=== PATIENT | male | born 1940 | race Caucasian/White ===

== ENCOUNTER 2019-08-22 11:05 | Inpatient (IN) | payer OTHER, SELFPAY ==
[2019-08-22] VITALS (10 sets, daily range): BP systolic 156–191; BP diastolic 72–104; PULSE 77–109; RESP 17–22; TEMP 36.3–36.6; O2SAT 94–100; BMI 36.9
--- NOTE | 2019-08-22 11:14 | ECG_ITS ---
Measurements Intervals [place] Rate: 99 P: 40 MN: 152 QRS: -85 QRSD: 143 T: 30 QT: 379 QTc: 487 SINUS RHYTHM POSSIBLE LEFT ATRIAL ENLARGEMENT [-0.1mV P WAVE IN V1/V2] INDETERMINATE AXIS RIGHT BUNDLE BRANCH BLOCK [120+ ms QRS DURATION, UPRIGHT V1, 40+ ms S IN I/aVL/V4/V5/V6] LEFT ANTERIOR FASCICULAR BLOCK [QRS AXIS <= -45, QR IN I, RS IN II] Compared to ECG 02/28/2019 21:16:27 Left anterior fascicular block now present Electronically Signed On 08-22-2019 20:54:55 JEWEL INSPECTOR by Alisia Ordonez M.D. [id number]
--- NOTE | 2019-08-22 11:19 | ED_ITS ---
Entered by Maddy Lofton, acting as scribe for Luz Redmond MD HPI - SOB/Dyspnea General: Chief Complaint: Shortness of Breath/Dyspnea Stated Complaint: Shortness of breath Time Seen by Provider: 08/22/19 11:19 Source: patient Mode of arrival: ambulatory Limitations: no limitations History of Present Illness: HPI Narrative: 79 yo Male presents to ED with comp laint of shortness of breath. Pt states the is on oxygen and he still can't breathe. Pt's caregiver states that the patient has been bad for a few days but gotten worse today. Pt's states that the patient is on breathing treatments but he doesn't complete them, he just uses it long enough to get a little relief. Pt states that he has also had increased weakness and leg swelling. Pt's blood sugar is low and patient states that he is feeling a little shaky. MD elicited complaint: shortness of breath and cough Pertinent past history: COPD, congestive heart failure and diabetes Onset (ago): day(s) Timing: progressively worsening Severity: severe Exacerbating factors: coughing Relieving factors: nothing Known history of: COPD, congestive heart failure and diabetes Associated symptoms: Reports cough, orthopnea and other (weakness); Deny abdominal pain, chest pain or fever(s) Treatment prior to arrival: oxygen and bronchodilator Related Data: Home oxygen amount: 3 liters Review of Systems General: Reports: 10 or more systems reviewed and unremarkable except in HPI and below Const: Denies: fever Card: Reports: edema, swelling of feet/ankles, shortness of breath on exertion and shortness of breath when lying down; Denies: chest pain Resp: Reports: shortness of breath and non-productive cough GI: Denies: abdominal pain Musc: Reports: extremity swelling PFSH ED PFSH: Statuses (acute, chronic, etc) shown below reflect problem list status as previously entered and may not be historically accurate Medical History (Updated 08/22/19 @ 15:36 by Saroj Frances MD) Anemia BPH (benign prostatic hyperplasia) Central retinal vein occlusion Chronic kidney disease, stage III (moderate) Congestive heart failure with left ventricular systolic dysfunction Constipation COPD (chronic obstructive pulmonary disease) Coronary artery disease DJD (degenerative joint disease) GERD (gastroesophageal reflux disease) Hyperlipidemia Moderate aortic valve stenosis Pulmonary hypertension Type 2 diabetes mellitus Surgical History (Updated 08/22/19 @ 15:36 by Saroj Frances MD) History of appendectomy History of back surgery History of coronary artery bypass graft History of hernia repair History of neck surgery History of transurethral resection of prostate Family History (Updated 08/22/19 @ 15:38 by Saroj Frances MD) Other Stroke Social History (Updated 08/22/19 @ 15:38 by Saroj Frances MD) Smoking and tobacco status: former smoker Alcohol intake: never Substance/Drug Use: never Physical Exam Const: COMMON NORMALS: oriented x3 and alert; apparent distress GENERAL APPEARANCE: in distress (mild) HENMT: COMMON NORMALS: normocephalic, head/scalp atraumatic, hearing grossly normal bilaterally, external ears normal, EAC's normal, TM's normal bilaterally, external nose normal, nasal mucous membranes and turbinates normal, moist oral mucous membranes, oropharynx normal, dentition normal and gingiva normal HEAD & SCALP: normocephalic and atraumatic NOSE: external nose normal and nasal mucous membranes and turbinates normal EXTERNAL EAR: Yes external ears normal EXTERNAL AUDITORY CANAL: EAC's normal TYMPANIC MEMBRANE: TM's normal bilaterally Eye: COMMON NORMALS: PERRL, EOMs intact bilaterally, conjunctivae normal, no scleral icterus and normal visual sen by confrontation CONJUNCTIVA: Yes conjunctivae normal PUPIL: Yes PERRL DIRECT OPHTHALMOSCOPY: No photophobia Neck/C-Spine: COMMON NORMALS: full ROM, no lymphadenopathy, supple, no meningeal signs, no JVD, thyroid normal and no carotid bruits THYROID: thyroid normal Chest: COMMONS NORMALS: inspection of chest normal and palpation of chest normal Resp: COMMON NORMALS: normal respiratory effort, no retractions and no use of accessory muscles; negative for clear to auscultation bilaterally AUSCULTATION: not clear to auscultation bilaterally and rales bilateral at the base Cardio: COMMON NORMALS: no JVD, regular rate, regular rhythm, S1 normal heart sound, S2 normal heart sound, no gallops, no clicks, no murmurs, no rub and peripheral pulses 2+ throughout RATE: regular rate RHYTHM: regular rhythm HEART SOUNDS: S1 normal and S2 normal PERIPHERAL PULSES: pulses 2+ throughout GI: COMMON NORMALS: non-tender and no masses; negative for normal to inspection, nondistended, normoactive bowel sounds INSPECTION: Yes abdominal distension and Yes central obesity : COMMON NORMALS: Yes no CVA tenderness BLADDER/KIDNEY EXAM: Yes no CVA tenderness Back/Pelvis: COMMON NORMALS: no CVA tenderness Extremity: COMMON NORMALS: full ROM, no joint enlargement and no calf tenderness; negative for no clubbing, cyanosis or edema and negative for no pedal edema GENERAL: Yes normal exam except as noted and Yes edema (2+ bilateral) Neuro: COMMON NORMALS: oriented x3 SENSORIUM/ORIENTATION: Yes alert MENINGEAL SIGNS: Yes no meningeal signs Skin: COMMON NORMALS: no rashes or lesions noted, no wounds, skin turgor normal and no jaundice GENERAL SKIN EXAM: no rashes or lesions noted and turgor normal Course ED course: Patient feeling better after lasix, nitropaste and resting. Troponin elevated - lovenox and aspirin given and on repeat questioning he reports that he does get chest pain when he is very short of breath. He denied prior heart attack. Plan for admit. Consultations: Consultation #1: Discussed with Dr. Frances - accepted for admit Time: 14:07 Vital Signs: Vital signs: Vital Signs Temperature 97.7 F 08/22/19 15:30 Pulse Rate 100 08/22/19 15:30 Respiratory Rate 22 H 08/22/19 15:30 Blood Pressure 173/77 08/22/19 15:30 Pulse Oximetry 98 08/22/19 15:30 MDM - SOB/Dyspnea MDM Narrative: Medical decision making narrative: Patient with history of CHF and COPD. He has had increasing shortness of breath and leg swelling. His says that he has not missed any doses of medication as far as she is aware. Exam suggests CHF exacerbation. he denies chest pain but his troponin is elevated as is his BNP. He also has chronic renal failure and his creatinine is slightly above baseline. Repeat troponin was unchanged. Lab Data: Labs: Lab Results 08/22/19 08/22/19 08/22/19 Range/Units 11:22 11:40 11:40 WBC 14.7 H (4.0-10.0) 10^3/ uL RBC 2.70 L (4.1-5.3) 10^6/u L Hgb 8.2 L (11.7-16.6) g/dL Hct 28.1 L (42.0-52.0) % MCV 104.1 H (80-94) fL MCH 30.4 (28.0-34.0) pg MCHC 29.2 L (30.0-36.0) g/dL RDW 15.3 H (12.1-15.1) % Plt Count 347 (130-400) 10^3/c mm MPV 9.8 (7.4-10.4) fL Neut % (Auto) 80.1 % Lymph % (Auto) 7.8 % [place] % (Auto) 7.6 % Eos % (Auto) 2.8 % Baso % (Auto) 0.6 % Neut # (Auto) 11.8 H (1.8-7.7) 10^3/u L Lymph # (Auto) 1.2 (0.8-4.8) 10^3/u L [place] # (Auto) 1.1 H (0.2-0.9) 10^3/u L Eos # (Auto) 0.4 (0.0-0.8) 10^3/u L Baso # (Auto) 0.1 (0.0-0.1) 10^3/u L Nucleated RBC % (a uto) 0 % Nucleated RBCs # 0.0 /100WBC Sodium 142 (136-145) mmol/L Potassium 4.6 (3.5-5.1) mmol/L Chloride 105 (98-107) mmol/L Carbon Dioxide 23 (22-29) mmol/L Anion Gap 18.6 (5-19) BUN 49 H (8-23) mg/dL Creatinine 2.2 H (0.7-1.2) mg/dL Glucose 49 L (65-115) mg/dL POC Glucose 59 (70-110) mg/dL Calcium 9.1 (8.5-10.5) mg/dL Total Bilirubin 0.4 (0.15-1.2) mg/dL AST 18 (0-40) U/L ALT 23 (0-41) U/L Alkaline Phosphata se 121 (40-130) IU/L Troponin T Baselin e (0-15) ng/mL Troponin T 120 Min [place] (0-15) ng/mL Delta Troponin T (0-10) ABS# NT-Pro-B Natriuret Pep 7937 H (0-450) pg/mL Total Protein 7.2 (6.6-8.7) g/dL Albumin 3.9 (3.5-5.2) g/dL Globulin 3.3 (1.3-4.6) g/dL 08/22/19 08/22/19 08/22/19 Range/Units 11:40 13:04 13:55 WBC (4.0-10.0) 10^3/ uL RBC (4.1-5.3) 10^6/u L Hgb (11.7-16.6) g/dL Hct (42.0-52.0) % MCV (80-94) fL MCH (28.0-34.0) pg MCHC (30.0-36.0) g/dL RDW (12.1-15.1) % Plt Count (130-400) 10^3/c mm MPV (7.4-10.4) fL Neut % (Auto) % Lymph % (Auto) % [place] % (Auto) % Eos % (Auto) % Baso % (Auto) % Neut # (Auto) (1.8-7.7) 10^3/u L Lymph # (Auto) (0.8-4.8) 10^3/u L [place] # (Auto) (0.2-0.9) 10^3/u L Eos # (Auto) (0.0-0.8) 10^3/u L Baso # (Auto) (0.0-0.1) 10^3/u L Nucleated RBC % (a uto) % Nucleated RBCs # /100WBC Sodium (136-145) mmol/L Potassium (3.5-5.1) mmol/L Chloride (98-107) mmol/L Carbon Dioxide (22-29) mmol/L Anion Gap (5-19) BUN (8-23) mg/dL Creatinine (0.7-1.2) mg/dL Glucose (65-115) mg/dL POC Glucose 95 (70-110) mg/dL Calcium (8.5-10.5) mg/dL Total Bilirubin (0.15-1.2) mg/dL AST (0-40) U/L ALT (0-41) U/L Alkaline Phosphata se (40-130) IU/L Troponin T Baselin e 153 H* (0-15) ng/mL Troponin T 120 Min [place] 152.10 H (0-15) ng/mL Delta Troponin T -0.90 L (0-10) ABS# NT-Pro-B Natriuret Pep (0-450) pg/mL Total Protein (6.6-8.7) g/dL Albumin (3.5-5.2) g/dL Globulin (1.3-4.6) g/dL Imaging Data^: CXR: Radiologist's impression: [address] [address] XRay Report Signed Patient: Bakari Crabtree #: [id number] : 8Acct#:[id number] Age/Sex: 79 / MADM Date: 08/22/19 [facility]: Attending Dr: Ordering Provider/Ordering MD: Luz Redmond MD Date of Service: 08/22/19 Procedure(s): XR chest 1V portable [id number] Accession Number(s): [id number] Report Number: [id number] PROCEDURE INFORMATION: Exam: XR Chest, 1 View Exam date and time: 08/22/2019 11:53 AM Age: 79 years old Clinical indication: Dyspnea; Prior surgery; Surgery date: 6+ months; Surgery type: Open heart; Patient HX: Chest pain, shortness of breath, hurts when coughing TECHNIQUE: Imaging protocol: XR of the chest Views: 1 view. COMPARISON: CR Chest 1 [place] [id number] 02/28/2019 10:45 AM FINDINGS: Lungs: Rather coarse interstitial pattern diffusely. Chronic in appearance. Likely fibrotic. Pleural space: Unremarkable. No pleural effusion. No pneumothorax. Heart/Mediastinum: cardiac silhouette is enlarged. Prior sternotomy. Bones/joints: See Heart/mediastinum Finding. XR/XR chest 1V portable [id number] IMPRESSION: Rather coarse interstitial pattern diffusely. Chronic in appearance. Likely fibrotic. 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 EKG 2: EKG Interpretation Date: 08/22/19 EKG interpretation time: 13:42 Prior EKG tracings: available for review Interpretation: rate 92, RBBB and LAFB Discharge Plan Discharge Patient Disposition: Admitted As Inpatient Admit Provider: Saroj Frances Clinical Impression: Chronic renal disease, Elevated troponin Congestive heart failure Qualifiers: Heart failure chronicity: acute on chronic Condition: Stable Referrals: Anton Pak DO [Primary Care Provider] - Discharge Date/Time: 08/22/19 15:03 Coding Level of Care Code ED Dining Service Supervisor for Chg Fwd Exam Problem Focused The documentation recorded by the Kirsty salas Carmen, accurately reflects the service I personally performed and the decisions made by Ruy car Kathryn L, MD Aug 22, 2019 11:05
[2019-08-22 11:25] LABS: Glucose Point of Care 59 mg/dL (70-110)
--- NOTE | 2019-08-22 11:32 | XRR_ITS ---
PROCEDURE INFORMATION: Exam: XR Chest, 1 View Exam date and time: 08/22/2019 11:53 AM Age: 79 years old Clinical indication: Dyspnea; Prior surgery; Surgery date: 6+ months; Surgery type: Open heart; Patient HX: Chest pain, shortness of breath, hurts when coughing TECHNIQUE: Imaging protocol: XR of the chest Views: 1 view. COMPARISON: CR Chest 1 [place] [id number] 02/28/2019 10:45 AM FINDINGS: Lungs: Rather coarse interstitial pattern diffusely. Chronic in appearance. Likely fibrotic. Pleural space: Unremarkable. No pleural effusion. No pneumothorax. Heart/Mediastinum: cardiac silhouette is enlarged. Prior sternotomy. Bones/joints: See Heart/mediastinum Finding. XR/XR chest 1V portable [id number] IMPRESSION: Rather coarse interstitial pattern diffusely. Chronic in appearance. Likely fibrotic.
--- NOTE | 2019-08-22 11:40 | PC.NURSE ---
reports the patient has had a cough for about 3 weeks. states the patient also has been short of breath for about a week. Patient reports chest pain only when he coughs. states the patient uses home O2 at 3 L and increases it as needed for SOB. reports that he does have breathing treatments as well but he only uses for a couple seconds and then stops it. Patient denies any other symptoms.
--- NOTE | 2019-08-22 11:42 | PC.NURSE ---
2 juices given to patient due to the patients blood glucose.
[2019-08-22 11:58] LABS: Basophils # 0.1 10^3/uL (0.0-0.1); Basophils % 0.6 %; Eosinophils # 0.4 10^3/uL (0.0-0.8); Eosinophils % 2.8 %; Hematocrit 28.1 % (42.0-52.0); Hemoglobin 8.2 g/dL (11.7-16.6); Lymphocytes # 1.2 10^3/uL (0.8-4.8); Lymphocytes % 7.8 %; Mean Corpuscular HGB Conc 29.2 g/dL (30.0-36.0); Mean Corpuscular Hemoglobin 30.4 pg (28.0-34.0); Mean Corpuscular Volume 104.1 fL (80-94); Mean Platelet Volume 9.8 fL (7.4-10.4); Monocytes # 1.1 10^3/uL (0.2-0.9); Monocytes % 7.6 %; Neutrophils # 11.8 10^3/uL (1.8-7.7); Neutrophils % 80.1 %; Nucleated Red Blood Cells % 0 %; Platelet Count 347 10^3/cmm (130-400); Red Cell Distribution Width 15.3 % (12.1-15.1); White Blood Count 14.7 10^3/uL (4.0-10.0)
[2019-08-22 12:24] LABS: Troponin(5th) Baseline 153 ng/mL (0-15)
[2019-08-22 12:28] LABS: Alanine Aminotransferase 23 U/L (0-41); Albumin Level 3.9 g/dL (3.5-5.2); Alkaline Phosphatase 121 IU/L (40-130); Anion Gap 18.6 (5-19); Aspartate Amino Transferase 18 U/L (0-40); Blood Urea Nitrogen 49 mg/dL (8-23); Calcium 9.1 mg/dL (8.5-10.5); Carbon Dioxide 23 mmol/L (22-29); Chloride 105 mmol/L (98-107); Globulin 3.3 g/dL (1.3-4.6); Glucose 49 mg/dL (65-115); NT Pro B Type Natriuretic Pept 7937 pg/mL (0-450); Potassium 4.6 mmol/L (3.5-5.1); Sodium 142 mmol/L (136-145); Total Bilirubin 0.4 mg/dL (0.15-1.2); Total Protein 7.2 g/dL (6.6-8.7)
[2019-08-22] MEDS: FUROsemide 10 mg/mL SDV 4mL 40 MG IVP (12:47)
[2019-08-22 13:06] LABS: Glucose Point of Care 95 mg/dL (70-110)
--- NOTE | 2019-08-22 13:07 | PC.PHAR ---
ENTERED MEDICATIONS FROM PTS 'S LIST. FAXED [facility] AT 12:25 PM. STILL WAITING FOR FAX.
--- NOTE | 2019-08-22 13:14 | ECG_ITS ---
Measurements Intervals [place] Rate: 92 P: 40 MO: 151 QRS: 23 QRSD: 143 T: 18 QT: 387 QTc: 481 SINUS RHYTHM WITH OCCASIONAL ECTOPIC PREMATURE COMPLEXES POSSIBLE LEFT ATRIAL ENLARGEMENT [-0.1mV P WAVE IN V1/V2] INDETERMINATE AXIS RIGHT BUNDLE BRANCH BLOCK [120+ ms QRS DURATION, UPRIGHT V1, 40+ ms S IN I/ I/aVL/V4/V5/V6] Compared to ECG 02/28/2019 21:16:27 No significant changes Electronically Signed On 08-22-2019 21:00:21 ENGINE MAINTENANCE MECHANIC by Alisia Ordonez M.D. [id number]
[2019-08-22] MEDS: nitroglycerin 1 gm/inch oint Pkt 1 INCH TOPICAL (14:09)
[2019-08-22] MEDS: aspirin 81 mg Chew Tablet 324 MG PO (14:09)
[2019-08-22] MEDS: enoxaparin 30 mg/0.3 mL Syringe SUBCUT (14:10)
--- NOTE | 2019-08-22 15:30 | USCV_ITS ---
Bakari Crabtree Age: 79 Gender: M : 1940 Exam Date: 08/22/2019 16:23 Ordering Phys: Saroj Frances MD Technologist: Onelia Pacheco Exam Location: [facility] [place] Indication: CHF BP: / HR: 95 Rhythm: Sinus Technical Quality: Technically difficult study MEASUREMENTS (Male / Female) Normal Values 2D ECHO LV Diastolic Diameter PLAX 5.0 cm 4.2 - 5.9 / 3.9 - 5.3 cm LV Systolic Diameter PLAX 3.7 cm IVS Diastolic Thickness 2.1 cm 0.6 - 1.0 / 0.6 - 0.9 cm IVS Systolic Thickness 2.1 cm LVPW Diastolic Thickness 1.7 cm 0.6 - 1.0 / 0.6 - 0.9 cm LVPW Systolic Thickness 2.4 cm LVOT Diameter 2.1 cm LV Ejection Fraction 2D Teich 50.5 % LA Diameter 4.7 cm LA Width 3.6 cm LA Height 4.7 cm RA Width 4.9 cm RA Height 5.1 cm Aorta at Sinotubular Diameter 3.5 cm M-MODE LV Diastolic Diameter MM 6.9 cm 4.2 - 5.9 / 3.9 - 5.3 cm LV Systolic Diameter MM 4.7 cm LV Ejection Fraction MM Teich 59.6 % IVS Diastolic Thickness MM 1.7 cm 0.6 - 1.0 / 0.6 - 0.9 cm IVS Systolic Thickness MM 2.3 cm LVPW Diastolic Thickness MM 1.4 cm 0.6 - 1.0 / 0.6 - 0.9 cm LVPW Systolic Thickness MM 1.9 cm RV Diastolic Diameter MM 2.1 cm Aortic Annulus Diameter 3.0 cm LA Ao Ratio MM 1.6 MV E Point Septal Separation 1.4 cm DOPPLER AV Peak Velocity 261.0 cm/s LVOT Peak Velocity 66.0 cm/s AV Area Cont Eq vti 1.0 cm squared AV Area Cont Eq pk 0.9 cm squared MV Area PHT 5.6 cm squared Mitral E to A Ratio 1.2 MV E' Velocity 6.0 cm/s Mitral E to MV E' Ratio 28.1 Mitral E to LV E' Lateral Ratio 26.8 Mitral E to LV E' Septal Ratio 29.6 TR Peak Velocity 205.9 cm/s TR Peak Gradient 17.0 mmHg TR Mean Velocity 156.4 cm/s TR Mean Gradient 10.6 mmHg TR Velocity Time Integral 61.2 cm TV Peak E Velocity 75.0 cm/s Right Atrial Pressure 15.0 mmHg Pulmonary Artery Systolic Pressu 32.0 mmHg PV Peak Velocity 47.0 cm/s RV Acceleration Time 0.1 s RV Ejection Time 0.3 s RV AcT/ET 0.5 FINDINGS Left Ventricle Mildly increased left ventricular cavity size. Normal left ventricular systolic function. Left ventricular ejection fraction is estimated at 55 %. Grade II/IV diastolic dysfunction, moderately elevated filling pressures. Right Ventricle The right ventricle is normal in size and function. Right Atrium The right atrium is normal in size. Left Atrium Moderately increased left atrial size. Mitral Valve Severely thickened mitral valve. Severe mitral annular calcification. No mitral valve stenosis. Trace mitral valve regurgitation. Aortic Valve Severe aortic valve calcification. Moderate to severe aortic valve stenosis, mean gradient 16.9 mmHg, ANTHONY 0.99 cm squared. Tricuspid Valve Structurally normal tricuspid valve without significant stenosis or regurgitation. Pulmonary artery systolic pressure is normal. Pulmonic Valve Mild pulmonary valve regurgitation. Pericardium Normal pericardium without effusion. Aorta Normal ascending aorta dimension. CONCLUSIONS 1-Mildly increased left ventricular cavity size. Normal left ventricular systolic function. Left ventricular ejection fraction is estimated at 55 %. Grade II/IV diastolic dysfunction, moderately elevated filling pressures. 2-Moderately increased left atrial size. 3-Severely thickened mitral valve. Severe mitral annular calcification. No mitral valve stenosis. Trace mitral valve regurgitation. 4-Severe aortic valve calcification. Moderate to severe aortic valve stenosis, mean gradient 16.9 mmHg, ANTHONY 0.99 cm squared. 5-Mild pulmonary valve regurgitation. 6-There is no pericardial effusion. 7-When compared to the prior echocardiogram dated 07/21/2018 there is worsening of aortic stenosis from moderate 1.2 cm squared to moderate to severe 0.99 cm2 now. Daniel Smalls MD (Electronically Signed) Final Date: 22 August 2019 19:02 S
--- NOTE | 2019-08-22 15:30 | P.HP_ITS ---
Providers/Chief Complaint Admitting Physician: Saroj Frances MD Primary Care Provider: Anton Pak DO Chief Complaint: Shortness of breath History of Present Illness Bakari Crabtree is a 79 year old male who presents to the emergency department with increasing shortness of breath over the last month. In the last week it is gotten worse. He has had a cough productive of clear thick sputum. He reports no fevers. He reports he is always swollen and he does not believe his leg swelling is any different but his abdomen feels more bloated. He occasionally will have a hard stool that is occasionally black. He reports recent EGD and colonoscopy about 2 months ago which were normal. He has had anemia and has been found to be iron deficient. He denies any vomiting. He has had no chest discomfort. He reports past history of reflux but nothing severe currently. Review of Systems General: Reports: 10 or more systems reviewed and unremarkable except in HPI and below Const: Denies: fever or chills Eyes: Reports: blurry vision ENMT: Denies: throat pain Card: Reports: swelling of feet/ankles and shortness of breath on exertion; Denies: chest pain or syncope Resp: Reports: shortness of breath and productive cough GI: Denies: abdominal pain : Denies: flank pain Musc: Reports: back pain; Denies: neck pain Skin/Breast: Denies: rash Neuro: Denies: headache Psych: Denies: anxiety Endo: Denies: excessive urination Cuate/Lymph: Denies: easy bruising All/Imm: Denies: hives Medications/Allergies Home Medications Medication Instructions Recorded Confirmed Last Taken Type acetaminophen [Tylenol Extra 1,000 mg PO TID PRN 08/22/19 08/22/19 Unknown History Strength] albuterol sulfate [ProAir HFA] 2 puff INHALATION 6XD PRN 08/22/19 08/22/19 Unknown History atorvastatin [Lipitor] 20 mg PO DAILY 08/22/19 08/22/19 Unknown History budesonide-formoterol [Symbicort] 2 puff INHALATION BID 08/22/19 08/22/19 Unknown History bumetanide See Rx Instructions .ROUTE .COMPLEX 08/22/19 08/22/19 Unknown History cholecalciferol (vitamin D3) 4,000 unit PO DAILY 08/22/19 08/22/19 Unknown History [Vitamin D3] ferrous sulfate 325 mg PO DAILY 08/22/19 08/22/19 Unknown History insulin glargine [Lantus Solostar See Rx Instructions .ROUTE .COMPLEX 08/22/19 08/22/19 Unknown History U-100 Insulin] ipratropium-albuterol 3 ml INHALATION QID 08/22/19 08/22/19 Unknown History isosorbide mononitrate 120 mg PO DAILY 08/22/19 08/22/19 Unknown History metolazone 2.5 mg PO BID 08/22/19 08/22/19 Unknown History metoprolol tartrate 50 mg PO BID 08/22/19 08/22/19 Unknown History pantoprazole [Protonix] 40 mg PO DAILY 08/22/19 08/22/19 Unknown History potassium chloride 20 meq PO TID 08/22/19 08/22/19 08/21/19 History tamsulosin [Flomax] 0.4 mg PO DAILY 08/22/19 08/22/19 Unknown History Allergies Allergy/AdvReac Type Severity Reaction Status Date / Time No Known Allergies Allergy Verified 08/22/19 11:12 PFSH Acute PFSH: Statuses (acute, chronic, etc) shown below reflect problem list status as previously entered and may not be historically accurate Medical History (Updated 08/22/19 @ 15:36 by Saroj Frances MD) Anemia (Acute) BPH (benign prostatic hyperplasia) (Acute) Central retinal vein occlusion (Acute) Chronic kidney disease, stage III (moderate) (Acute) Congestive heart failure with left ventricular systolic dysfunction (Acute) Constipation (Acute) COPD (chronic obstructive pulmonary disease) (Acute) Coronary artery disease (Acute) DJD (degenerative joint disease) (Acute) GERD (gastroesophageal reflux disease) (Acute) Hyperlipidemia (Acute) Moderate aortic valve stenosis (Acute) Pulmonary hypertension (Acute) Type 2 diabetes mellitus (Acute) Surgical History (Updated 08/22/19 @ 15:36 by Saroj Frances MD) History of appendectomy (Acute) History of back surgery (Acute) History of coronary artery bypass graft (Acute) History of hernia repair (Acute) History of neck surgery (Acute) History of transurethral resection of prostate (Acute) Family History (Updated 08/22/19 @ 15:38 by Saroj Frances MD) Other Stroke Social History (Updated 08/22/19 @ 15:38 by Saroj Frances MD) Smoking and tobacco status: former smoker Alcohol intake: never Substance/Drug Use: never Vitals/I&O/Wt Last Vital Signs Temp 97.3 F L 08/22/19 11:06 Pulse 96 08/22/19 14:48 Resp 17 08/22/19 14:48 BP 191/101 08/22/19 14:48 Pulse Ox 96 08/22/19 14:48 Weight last 48 hrs Weight 113.398 kg Physical Exam Narrative: EXAM NARRATIVE: General exam is a elderly male, in mild to moderate respiratory distress HEENT: Pupils equally round Oropharynx is clear Neck is supple no lymphadenopathy or thyromegaly Cardiovascular borderline tachycardia. 2/6 systolic murmur Lungs crackles at the bases with diminished breath sounds bilaterally Abdomen is soft, positive bowel sounds was deferred Extremities 3+ edema lower extremities bilaterally. Cap refill intact. No cyanosis or clubbing Skin without rash Neuro no focal deficits Data : 08/22/19 11:40 08/22/19 11:40 Other data: EKG demonstrates right bundle branch block, sinus rhythm, normal axis Chest x-ray demonstrates fluid overload, previous bypass grafting A&P Assessment and plan (1) Congestive heart failure with left ventricular systolic dysfunction: Significant acute systolic heart failure Lasix 60 mg IV twice daily Close follow-up of electrolytes Continue beta-vanessa, as well as Imdur We will have to avoid JESUS inhibitor secondary to acute kidney injury Check echocardiogram. Last echocardiogram July 2018 demonstrating EF of 45%, 1/4 diastolic dysfunction, moderate aortic valve stenosis and moderate pulmonary hypertension Status: Acute Code(s): I50.20 - Unspecified systolic (congestive) heart failure (2) COPD (chronic obstructive pulmonary disease): Cannot rule out an element of COPD exacerbation. He is on oxygen chronically at 2 to 3 L. Doxycycline 100 mg twice daily Prednisone 40 mg daily Pulmonary toilet Steroid inhalation Status: Acute Code(s): J44.9 - Chronic obstructive pulmonary disease, unspecified (3) Anemia: Significantly anemic. Previous iron studies demonstrated iron deficiency. Close follow-up Hemoccult stool Repeat iron, B12, folate studies. Status: Acute Code(s): D64.9 - Anemia, unspecified (4) Macrocytosis: Check B12 folate and TSH Status: Acute Code(s): D75.89 - Other specified diseases of blood and blood-forming organs (5) Leukocytosis: Possibly secondary to COPD exacerbation or heart failure. Will check urinalysis as well. Follow closely, repeat laboratory tomorrow Status: Acute Code(s): D72.829 - Elevated white blood cell count, unspecified (6) Acute kidney injury: Acute on chronic kidney injury. Hopefully this will improve with diuresis Avoid JESUS inhibitors, renal toxic medication Check urinalysis Repeat BMP tomorrow Status: Acute Code(s): N17.9 - Acute kidney failure, unspecified (7) Elevated troponin: Await repeat levels. Suspect this is type II Level likely elevated from renal failure, heart failure. No obvious acute concerns on EKG, and patient without chest discomfort. Status: Acute Code(s): R79.89 - Other specified abnormal findings of blood chemistry Additional A&P Information Chronic kidney disease stage III Coronary artery disease with history of previous CABG. Consider low-dose aspirin 81 mg daily. Will check hemoglobin tomorrow prior to starting secondary to significant anemia. Note that he is already received an aspirin in the emergency department today as well as an injection of Lovenox. Consideration of continue of these will occur tomorrow. For now I will consider them contraindicated secondary to his severe anemia until I can review his laboratory tomorrow as well. Type 2 diabetes. Sliding scale insulin, Lantus at slightly lower dose than at home secondary to renal failure GERD, continue Protonix BPH, continue Flomax Multiple other medical problems as outlined in past medical history SCDs for DVT prophylaxis. Did receive 1 dose of Lovenox in the emergency department. Will evaluate laboratory, degree of anemia tomorrow prior to determining if further doses should be given. Attestations Medical Necessity Statement*: Will need greater than 2 midnight stay for evaluation and treatment of acute systolic heart failure Time Spent in Patient Care: Greater than 35 minutes Will need greater than 2 midnight stay for evaluation and treatment of acute systolic heart failure Coding Level of Care Code Acute Superintendent Recreation for Jennifer Tuttle Diagnoses Congestive heart failure with left ventricular systolic dysfunction I50.20 COPD (chronic obstructive pulmonary disease) J44.9 Anemia D64.9 Macrocytosis D75.89 Leukocytosis D72.829 Acute kidney injury N17.9 Elevated troponin R79.89
[2019-08-22 15:37] LABS: Glucose Point of Care 64 mg/dL (70-110)
[2019-08-22 16:04] LABS: Glucose Point of Care 61 mg/dL (70-110)
[2019-08-22] MEDS: ipratropium-albuterol 3 mL Neb INHALATION ×2 (16:33→21:59)
--- NOTE | 2019-08-22 17:14 | ECG_ITS ---
Measurements Intervals [place] Rate: 100 P: 37 AL: 144 QRS: 267 QRSD: 147 T: 15 QT: 386 QTc: 499 SINUS TACHYCARDIA WITH OCCASIONAL VENTRICULAR PREMATURE COMPLEXES POSSIBLE LEFT ATRIAL ENLARGEMENT [-0.1mV P WAVE IN V1/V2] INDETERMINATE AXIS RIGHT BUNDLE BRANCH BLOCK [120+ ms QRS DURATION, UPRIGHT V1, 40+ ms S IN I/aVL/V4/V5/V6] Compared to ECG 02/28/2019 21:16:27 Ventricular premature complex(es) now present Sinus rhythm no longer present Electronically Signed On 08-22-2019 21:01:12 [employer] SALES LEAD by Alisia Ordonez M.D. [email or web address]
[2019-08-22 17:18] LABS: Ferritin 215 ng/mL (30-400); Iron 35 ug/dL (59-158); Percent Saturation 13.5 % (20-50); Thyroid Stimulating Hormone 4.43 uIU/mL (0.27-4.20); Total Iron Binding Capacity 258 mcg/dl; Unsaturated Iron Binding 223 ug/dL (112-347); Vitamin B12 418 pg/mL (232-1245)
[2019-08-22] MEDS: metoprolol tartrate 50 mg Tablet PO (17:18)
[2019-08-22 17:19] LABS: Folate Level 7.9 ng/mL (4.5-32.2)
[2019-08-22] MEDS: doxycycline 100 mg Tablet PO (17:19)
[2019-08-22] MEDS: docusate sodium 100 mg Capsule PO (17:19)
[2019-08-22 18:14] LABS: Troponin 5 6HR Delta 1.4 ng/L (0-12)
[2019-08-22 18:39] LABS: Troponin 5 6HR 154.4 ng/L (0-15)
[2019-08-22 20:22] LABS: Bilirubin Urine Neg (NEGATIVE); Blood Urine 2+ (Negative); Glucose Urine UA Norm (Normal); Ketones Urine Negative (Negative); Leukocyte Esterase Urine Negative (Negative); Nitrate Urine Negative (Negative); Protein Urine 3+ (Negative); Specific Gravity, Urine 1.005 (1.005-1.030); Urine Appearance Clear (CLEAR); Urine Color Yellow (Yellow); Urobilinogen Urine Norm (Negative); pH Urine 5 (5-7)
[2019-08-22 21:23] LABS: Glucose Point of Care 103 mg/dL (70-110)
--- NOTE | 2019-08-22 21:40 | PM.EVENT ---
Event Note Event Note: Called about evening Lantus dose of 60 units. Current blood sugar is 103. Earlier today blood sugar was 49. Admitted today so do not have any trends to evaluate. Holding the evening dose of Lantus currently. He does have steroids ordered so expect will increase blood sugars, but will need to monitor and decide about further dosing.
[2019-08-22] MEDS: FUROsemide 10 mg/mL SDV 10mL 60 MG IV (21:57)
[2019-08-22] MEDS: budesonide 0.5 mg/2 mL Neb INHALATION (21:59)
[2019-08-23] VITALS (11 sets, daily range): BP systolic 145–172; BP diastolic 75–98; PULSE 83–95; RESP 17–22; TEMP 36.1–37.2; O2SAT 93–98
[2019-08-23 03:14] LABS: Glucose Point of Care 54 mg/dL (70-110)
[2019-08-23] MEDS: ipratropium-albuterol 3 mL Neb INHALATION ×3 (06:02→22:00)
[2019-08-23 06:35] LABS: Glucose Point of Care 62 mg/dL (70-110)
[2019-08-23 06:37] LABS: Basophils # 0.1 10^3/uL (0.0-0.1); Basophils % 0.5 %; Eosinophils # 0.2 10^3/uL (0.0-0.8); Hematocrit 25.9 % (42.0-52.0); Hemoglobin 7.8 g/dL (11.7-16.6); Lymphocytes # 1.1 10^3/uL (0.8-4.8); Lymphocytes % 6.9 %; Mean Corpuscular HGB Conc 30.1 g/dL (30.0-36.0); Mean Corpuscular Hemoglobin 29.2 pg (28.0-34.0); Mean Platelet Volume 9.2 fL (7.4-10.4); Monocytes # 1.1 10^3/uL (0.2-0.9); Monocytes % 7.4 %; Neutrophils # 12.8 10^3/uL (1.8-7.7); Neutrophils % 83.4 %; Nucleated Red Blood Cells % 0 %; Platelet Count 302 10^3/cmm (130-400); Red Blood Count 2.67 10^6/uL (4.1-5.3); Red Cell Distribution Width 15.3 % (12.1-15.1); White Blood Count 15.3 10^3/uL (4.0-10.0)
[2019-08-23 06:50] LABS: Anion Gap 14.5 (5-19); Blood Urea Nitrogen 47 mg/dL (8-23); Calcium 9.2 mg/dL (8.5-10.5); Carbon Dioxide 27 mmol/L (22-29); Chloride 103 mmol/L (98-107); Glucose 55 mg/dL (65-115); Osmolality Calculated 286 mOsm/kg (285-295); Potassium 4.5 mmol/L (3.5-5.1); Sodium 140 mmol/L (136-145)
[2019-08-23] MEDS: pantoprazole DR 40 mg Tablet PO (08:49)
[2019-08-23] MEDS: metoprolol tartrate 50 mg Tablet PO ×2 (08:49→17:30)
[2019-08-23] MEDS: atorvastatin 40 mg Tablet 20 MG PO (08:50)
[2019-08-23] MEDS: docusate sodium 100 mg Capsule PO ×2 (08:50→17:29)
[2019-08-23] MEDS: tamsulosin 0.4 mg Capsule PO (08:50)
[2019-08-23] MEDS: predniSONE 20 mg Tablet 40 MG PO (08:51)
[2019-08-23] MEDS: doxycycline 100 mg Tablet PO ×2 (08:51→17:29)
[2019-08-23] MEDS: isosorbide mononitrate ER 60 mg Tablet 120 MG PO (08:51)
[2019-08-23 08:58] LABS: Glucose Point of Care 95 mg/dL (70-110)
[2019-08-23] MEDS: FUROsemide 10 mg/mL SDV 10mL 60 MG IV ×2 (08:58→22:04)
[2019-08-23] MEDS: budesonide 0.5 mg/2 mL Neb INHALATION ×2 (09:12→22:00)
[2019-08-23 10:46] LABS: Glucose Point of Care 172 mg/dL (70-110)
--- NOTE | 2019-08-23 12:48 | PC.CHAP ---
Pastoral Care Encounter/Spiritual Assessment Type of Contact [] Declined forest ranger technician visit [] Patient/Family/Request visit [] Outpatient visit [] Follow-up visit [] Physician referral [] Code/Alert [x] Routine visit [] Staff referral [] Actively dying [] Patient sleeping [] Family support [] [] Out of room [] Palliative care [] [] Receiving care in room [] Pre-surgical visit [] Trauma [] Long length of stay [] ICU visit [] Other: Relational/Emotional Strength [x] Patient feels connected with others/family/visitors/staff [] Distress [] Loneliness/isolation [] Abandonment Spirituality of Patient [x Person of [place] [] Attends Tenriism of their [place] [] Believes in Prayer [] Reads Bible or Quaker materials [x] There are Spiritual issues to be addressed Press Maintainer Interventions [x] Prayer [x] Active listening [x] Non-anxious presence [x] Spiritual/emotional support [] Crisis/trauma care [x] Spiritual counseling [] Bereavement support [] Provided bereavement packet [] Provided Bible/devotional materials [] Provided toy/stuffed animal, coloring book to patient or family member [] Provided Communion [] Anointing/[place] [] Salvation [] Completed spiritual assessment [] Other: Impact on Illness or Injury [] Angry [] Fearful [] Anxious [] Often cries [] Exhaustion [] Unable to work [] Unable to attend judaism [] Unable to walk/stand [] Unable to read [] Unable to drive [] Unable to eat/drink [] Unable to sleep [] Unable to be with family [] Patient intubated [x] Other: n/a Summary Time spent with patient 5 minutes
--- NOTE | 2019-08-23 13:07 | P.PN_ITS ---
Subjective Subjective: Interval history: Bakari reports he feels a little bit better. A little less swollen. Medications: Reviewed: Yes Vitals/I&O/Wt Last Vital Signs Temp 97.7 F 08/23/19 11:23 Pulse 86 08/23/19 11:23 Resp 18 08/23/19 11:23 BP 150/75 08/23/19 11:23 Pulse Ox 98 08/23/19 11:23 08/22/19 08/23/19 08/23/19 22:59 06:59 14:59 Intake Total 600 / 600 720 / 720 Output Total 420 / 420 325 / 745 700 / 700 Balance 180 / 180 -325 / -145 Weight last 48 hrs Weight 113.398 kg Physical Exam Narrative: EXAM NARRATIVE: General exam is no apparent distress Neck is supple no lymphadenopathy or thyromegaly Cardiovascular borderline tachycardia. 2/6 systolic murmur Lungs crackles at the bases with diminished breath sounds bilaterally Abdomen is soft, positive bowel sounds Extremities 2+ edema bilaterally Data : 08/23/19 06:30 08/23/19 06:30 A&P Assessment and plan (1) Congestive heart failure with left ventricular systolic dysfunction: Continue diuresis with Lasix 60 mg IV twice daily Continue beta-vanessa, as well as Imdur We will have to avoid JESUS inhibitor secondary to acute kidney injury Echocardiogram demonstrates possible worsening of his aortic valve stenosis, it weaned severe currently. Ejection fraction appears improved since last echocardiogram July 2018 demonstrating EF of 45%, 1/4 diastolic dysfunction, moderate aortic valve stenosis and moderate pulmonary hypertension With repeat echocardiogram as above this qualifies more is acute diastolic heart failure, with valvular component. Status: Acute Code(s): I50.20 - Unspecified systolic (congestive) heart failure (2) COPD (chronic obstructive pulmonary disease): Cannot rule out an element of COPD exacerbation. He is on oxygen chronically at 2 to 3 L. Doxycycline 100 mg twice daily Prednisone 40 mg daily Pulmonary toilet Steroid inhalation Status: Acute Code(s): J44.9 - Chronic obstructive pulmonary disease, unspecified (3) Anemia: Significantly anemic. Previous iron studies demonstrated iron deficiency. Repeat studies due as well. B12 level and folate are normal Awaiting stool Hemoccult Iron transfusion today Status: Acute Code(s): D64.9 - Anemia, unspecified (4) Macrocytosis: B12 and folate levels were normal Status: Acute Code(s): D75.89 - Other specified diseases of blood and blood-forming organs (5) Leukocytosis: Unchanged. Some of this may reflect prednisone which was started as well. Status: Acute Code(s): D72.829 - Elevated white blood cell count, unspecified (6) Acute kidney injury: Acute on chronic kidney injury. Renal function essentially unchanged Urinalysis no infection, but significant proteinuria. Could not rule out nephrotic syndrome Avoid JESUS inhibitors, renal toxic medication Continue close follow-up of electrolytes Status: Acute Code(s): N17.9 - Acute kidney failure, unspecified (7) Elevated troponin: Secondary to aortic stenosis, heart failure Status: Acute Code(s): R79.89 - Other specified abnormal findings of blood chemistry Additional A&P Information Chronic kidney disease stage III Coronary artery disease with history of previous CABG. Consider low-dose aspirin 81 mg daily but will await stool Hemoccult secondary to worsening anemia, iron deficiency. He did receive Lovenox and an aspirin in the emergency department Type 2 diabetes. Although home long-acting insulin was reduced he still had hypoglycemia in the night. Discontinue Lantus, sliding scale only GERD, continue Protonix BPH, continue Flomax Multiple other medical problems as outlined in past medical history SCDs for DVT prophylaxis. No further anticoagulation secondary to severe anemia. Attestations Medical Necessity Statement*: Needs continued hospital stay for further diuresis secondary to acute diastolic heart failure. Coding Level of Care Code Acute Wood Dowel Machine Operator for Jennifer Fwd Diagnoses Congestive heart failure with left ventricular systolic dysfunction I50.20 COPD (chronic obstructive pulmonary disease) J44.9 Anemia D64.9 Macrocytosis D75.89 Leukocytosis D72.829 Acute kidney injury N17.9 Elevated troponin R79.89
[2019-08-23 16:07] LABS: Glucose Point of Care 315 mg/dL (70-110)
[2019-08-23 21:48] LABS: Glucose Point of Care 254 mg/dL (70-110)
--- NOTE | 2019-08-23 21:48 | P.CONIM_ITS ---
Providers/Reason For Consult Consulting Physican/Specialty*: Cardiology Reason for Consult*: Worsening of heart failure Moderate to severe aortic stenosis Attending Physician: Saroj Frances MD Primary Care Provider: Anton Pak DO History of Present Illness History of Present Illness Bakari Crabtree is a 79 year old male past medical history significant for moderate aortic stenosis, diastolic heart failure, chronic kidney disease stage III, history of CABG multivessel coronary artery disease, anemia was admitted with worsening of shortness of breath PND orthopnea. He was started on IV Lasix improved steadily however has not had approached his baseline. Echocardiogram was obtained during this admission which showed worsening of aortic valve from mild to moderate category. He was also found to be anemic with hemoglobin below 8. Patient admits to black tarry stool. He denies chest pain at rest but admits to chest pain when he becomes very short of breath upon ambulation. His baseline creatinine is around 2.0 Review of Systems General: Reports: 10 or more systems reviewed and unremarkable except in HPI and below Const: Denies: fever or chills Eyes: Reports: blurry vision ENMT: Denies: throat pain Card: Reports: edema, swelling of feet/ankles, shortness of breath on exertion and shortness of breath when lying down; Denies: chest pain or syncope Resp: Reports: shortness of breath, productive cough and non-productive cough GI: Denies: abdominal pain : Denies: flank pain Musc: Reports: back pain and extremity swelling; Denies: neck pain Skin/Breast: Denies: rash Neuro: Denies: headache Psych: Denies: anxiety Endo: Denies: excessive urination Cuate/Lymph: Denies: easy bruising All/Imm: Denies: hives Meds/Allergies Home Medications and Allergies Home Medications Medication Instructions Recorded Confirmed Type acetaminophen [Tylenol Extra 1,000 mg PO TID PRN 08/22/19 08/22/19 History Strength] albuterol sulfate [ProAir HFA] 2 puff INHALATION 6XD PRN 08/22/19 08/22/19 History atorvastatin [Lipitor] 20 mg PO DAILY 08/22/19 08/22/19 History budesonide-formoterol [Symbicort] 2 puff INHALATION BID 08/22/19 08/22/19 History bumetanide See Rx Instructions .ROUTE .COMPLEX 08/22/19 08/22/19 History cholecalciferol (vitamin D3) 4,000 unit PO DAILY 08/22/19 08/22/19 History [Vitamin D3] ferrous sulfate 325 mg PO DAILY 08/22/19 08/22/19 History insulin glargine [Lantus Solostar See Rx Instructions .ROUTE .COMPLEX 08/22/19 08/22/19 History U-100 Insulin] ipratropium-albuterol 3 ml INHALATION QID 08/22/19 08/22/19 History isosorbide mononitrate 120 mg PO DAILY 08/22/19 08/22/19 History metolazone 2.5 mg PO BID 08/22/19 08/22/19 History metoprolol tartrate 50 mg PO BID 08/22/19 08/22/19 History pantoprazole [Protonix] 40 mg PO DAILY 08/22/19 08/22/19 History potassium chloride 20 meq PO TID 08/22/19 08/22/19 History tamsulosin [Flomax] 0.4 mg PO DAILY 08/22/19 08/22/19 History Allergies Allergy/AdvReac Type Severity Reaction Status Date / Time No Known Allergies Allergy Verified 08/22/19 11:12 Current Medications Current Medications Generic Name Dose Route Start Last Admin Trade Name Freq PRN Reason Stop Dose Admin Albuterol/Ipratropium 3 ml 08/22/19 15:30 08/23/19 09:12 Duoneb INHALATION 3 ml Q6H PRN Administration SHORTNESS OF BREATH Atorvastatin Calcium 20 mg 08/23/19 09:00 08/23/19 08:50 Lipitor PO 20 mg DAILY SHOLA Administration Budesonide 0.5 mg 08/22/19 18:00 08/23/19 09:12 Pulmicort INHALATION 0.5 mg BID SHOLA Administration Docusate Sodium 100 mg 08/22/19 18:00 08/23/19 17:29 Colace PO 100 mg BID SHOLA Administration Doxycycline Monohydrate 100 mg 08/22/19 18:00 08/23/19 17:29 Vibramycin PO 100 mg BID SHOLA Administration Protocol Furosemide 60 mg 08/22/19 22:00 08/23/19 08:58 Lasix IV 60 mg Q12H SHOLA Administration Insulin Aspart 0 unit 08/22/19 18:00 02/13/20 17:39 Novolog SUBCUT 12 unit WM&BEDTIME SHOLA Administration Protocol Isosorbide Mononitrate 120 mg 08/23/19 09:00 08/23/19 08:51 Imdur PO 120 mg DAILY SHOLA Administration Metoprolol Tartrate 50 mg 08/22/19 18:00 08/23/19 17:30 Lopressor PO 50 mg BID SHOLA Administration Pantoprazole Sodium 40 mg 08/23/19 09:00 08/23/19 08:49 Protonix PO 40 mg DAILY SHOLA Administration Potassium Chloride 20 meq 08/23/19 09:00 08/23/19 15:30 Klor-Con 10 PO 20 meq TID SHOLA Administration Prednisone 40 mg 08/23/19 09:00 08/23/19 08:51 Prednisone PO 40 mg DAILY SHOLA Administration Fluticasone/Salmeterol 1 puff 08/22/19 20:00 08/23/19 09:12 Advair Diskus 100-50 INHALATION 1 puff BID.RESPIRATORY SHOLA Administration Tamsulosin HCl 0.4 mg 08/23/19 09:00 08/23/19 08:50 Flomax PO 0.4 mg DAILY SHOLA Administration PFSH Acute PFSH: Medical History (Updated 08/23/19 @ 22:08 by Daniel Smalls MD) Anemia (Acute) BPH (benign prostatic hyperplasia) (Acute) Central retinal vein occlusion (Acute) Chronic kidney disease, stage III (moderate) (Acute) Congestive heart failure with left ventricular systolic dysfunction (Acute) Constipation (Acute) COPD (chronic obstructive pulmonary disease) (Acute) Coronary artery disease (Acute) DJD (degenerative joint disease) (Acute) GERD (gastroesophageal reflux disease) (Acute) Hyperlipidemia (Acute) Moderate aortic valve stenosis (Acute) Pulmonary hypertension (Acute) Type 2 diabetes mellitus (Acute) Surgical History History of appendectomy (Acute) History of back surgery (Acute) History of coronary artery bypass graft (Acute) History of hernia repair (Acute) History of neck surgery (Acute) History of transurethral resection of prostate (Acute) Family History Other Stroke Social History Smoking and tobacco status: former smoker Alcohol intake: never Substance/Drug Use: never Vitals/I&O/Wt Last Vital Signs Temp 98.3 F 08/23/19 19:33 Pulse 90 08/23/19 19:33 Resp 17 08/23/19 19:33 BP 145/86 08/23/19 19:33 Pulse Ox 96 08/23/19 19:33 08/23/19 08/23/19 08/23/19 06:59 14:59 22:59 Intake Total 820 / 820 240 / 1060 Output Total 325 / 745 1000 / 1000 900 / 1900 Balance -325 / -145 -180 / -180 -660 / -840 Weight last 48 hrs Weight 250 lb Physical Exam Narrative: EXAM NARRATIVE: GENERAL: Patient is alert, awake and oriented x3. He is bruised all over. He has typical anemia pale look nECK: No jugular vein distension. HEENT: No cyanosis. No icterus. No pallor. HEART: Regular S1 and S2. 2/6 systolic murmur, rub or gallop. LUNGS: Clear to auscultate bilaterally. ABDOMEN: Mildly distended with abdominal gut wall edema , nontender and nondistended. Positive bowel sounds. No guarding, rebound or tenderness. CENTRAL NERVOUS SYSTEM: Grossly nonfocal. EXTREMITIES: Lower extremities with 1+ edema bilaterally. A&P Assessment and plan (1) Anemia: Anemia treatment and investigation as per medicine. Status: Acute Code(s): D64.9 - Anemia, unspecified (2) Congestive heart failure: Patient is in decompensated diastolic heart failure we agree with IV diuresis. Due to kidney dysfunction continue 60 mg of IV Lasix otherwise could have increase the dose as patient has abdominal wall edema. Status: Acute Qualifiers: Heart failure chronicity: acute on chronic Code(s): I50.9 - Heart failure, unspecified (3) Chronic renal disease: It is at the baseline. Status: Acute Code(s): N18.9 - Chronic kidney disease, unspecified (4) Aortic stenosis: Patient has moderate aortic stenosis at the moment there is no immediate concern regarding aortic valve replacement. Once euvolemic will may assess further Status: Acute Code(s): I35.0 - Nonrheumatic aortic (valve) stenosis Coding Level of Care Code New Pt Acute Anthropological Linguist for Chg Fwd Patient Type New History Expanded Problem Focused Exam Expanded Problem Focused Medical Decision Making Moderate Complexity Diagnoses Anemia D64.9 Congestive heart failure I50.9 Heart failure chronicity: acute on chronic Chronic renal disease N18.9 Aortic stenosis I35.0
[2019-08-24] VITALS (16 sets, daily range): BP systolic 135–166; BP diastolic 74–92; PULSE 85–105; RESP 17–20; TEMP 36.4–37.1; O2SAT 94–99
[2019-08-24 03:58] LABS: Glucose Point of Care 163 mg/dL (70-110)
[2019-08-24 05:46] LABS: Basophils % 0.2 %; Eosinophils % 0.1 %; Hematocrit 25.2 % (42.0-52.0); Hemoglobin 7.4 g/dL (11.7-16.6); Lymphocytes % 5.8 %; Mean Corpuscular HGB Conc 29.4 g/dL (30.0-36.0); Mean Corpuscular Hemoglobin 28.4 pg (28.0-34.0); Mean Corpuscular Volume 96.6 fL (80-94); Mean Platelet Volume 10.2 fL (7.4-10.4); Monocytes # 1.2 10^3/uL (0.2-0.9); Monocytes % 7.3 %; Neutrophils % 85.7 %; Nucleated Red Blood Cells % 0 %; Platelet Count 325 10^3/cmm (130-400); Red Blood Count 2.61 10^6/uL (4.1-5.3); Red Cell Distribution Width 15.4 % (12.1-15.1); White Blood Count 16.3 10^3/uL (4.0-10.0)
[2019-08-24 06:36] LABS: Anion Gap 20.3 (5-19); Blood Urea Nitrogen 58 mg/dL (8-23); Calcium 9.1 mg/dL (8.5-10.5); Carbon Dioxide 22 mmol/L (22-29); Chloride 102 mmol/L (98-107); Glucose 140 mg/dL (65-115); Osmolality Calculated 289 mOsm/kg (285-295); Potassium 5.3 mmol/L (3.5-5.1); Sodium 139 mmol/L (136-145)
[2019-08-24 06:50] LABS: Glucose Point of Care 144 mg/dL (70-110)
[2019-08-24] MEDS: ipratropium-albuterol 3 mL Neb INHALATION ×3 (08:25→20:58)
--- NOTE | 2019-08-24 08:46 | PC.NURSE ---
Pt FALL primary care nurse heard pt fall from hallway, called out for help. This nurse assessed pt. Vitals obtained and WNL for pt. Pt stated I lost my balance. Pt denies hitting head, pain, or tripping over O2 tubing. This nurse, several other nurses, and nursing students assisted pt to standing and back into bed. Range of motion assessed d/t pt stating I didn't hit my head but I hit my shoulder. Denies shoulder pain with movement and palpation. Dr. Frances and house cleaner supervisor notified. Pt resting in bed, call light within reach, bed alarm set at this time.
--- NOTE | 2019-08-24 08:56 | US_ITS ---
WS: [id number] Bilateral renal ultrasound, 08/24/2019 Clinical Data: renal failure Comparison: Renal ultrasound, 07/05/2019. Findings: The right kidney measures 10.9 cm x 6.7 cm x 8.7 cm and the left kidney is 12.8 cm x 7.9 cm x 7.3 cm. There are no cysts, masses or hydronephrosis. The renal cortical margin is normal. No renal calculi are seen. The abdominal aorta and inferior vena cava show no vascular abnormalities. The bladder was scanned and was not remarkable. US/US renal BI with bladder Impression: Negative bilateral renal ultrasound.
[2019-08-24] MEDS: atorvastatin 40 mg Tablet 20 MG PO (09:59)
[2019-08-24] MEDS: doxycycline 100 mg Tablet PO ×2 (10:02→18:40)
[2019-08-24] MEDS: isosorbide mononitrate ER 60 mg Tablet 120 MG PO (10:02)
[2019-08-24] MEDS: docusate sodium 100 mg Capsule PO ×2 (10:02→18:40)
[2019-08-24] MEDS: metoprolol tartrate 50 mg Tablet PO ×2 (10:03→18:40)
[2019-08-24] MEDS: pantoprazole DR 40 mg Tablet PO (10:04)
[2019-08-24] MEDS: tamsulosin 0.4 mg Capsule PO (10:04)
[2019-08-24] MEDS: predniSONE 20 mg Tablet 40 MG PO (10:04)
[2019-08-24] MEDS: FUROsemide 10 mg/mL SDV 10mL 60 MG IV (10:32)
[2019-08-24 11:09] LABS: Glucose Point of Care 198 mg/dL (70-110)
--- NOTE | 2019-08-24 14:26 | P.PN_ITS ---
Subjective Subjective: Interval history: Bakari reports he had a fall this morning. He does report his breathing is easier. He is not sure why he fell. He denies being dizzy. He is weak. Medications: Reviewed: Yes Vitals/I&O/Wt Last Vital Signs Temp 98.0 F 08/24/19 14:00 Pulse 90 08/24/19 14:15 Resp 20 H 08/24/19 14:15 BP 143/76 08/24/19 14:00 Pulse Ox 97 08/24/19 14:15 08/23/19 08/24/19 08/24/19 22:59 06:59 14:59 Intake Total 300 / 1120 240 / 240 Output Total 900 / 1900 725 / 2625 220 / 220 Balance -600 / -780 -725 / -1505 Physical Exam Narrative: EXAM NARRATIVE: General exam is no apparent distress Neck is supple no lymphadenopathy or thyromegaly Cardiovascular borderline tachycardia. 2/6 systolic murmur Lungs few crackles at the bases but improved aeration is noted Abdomen is soft, positive bowel sounds Extremities 2+ edema bilaterally Data : 08/24/19 05:05 08/24/19 05:05 A&P Assessment and plan (1) Congestive heart failure with left ventricular systolic dysfunction: Continue diuresis with Lasix 60 mg IV twice daily Continue beta-vanessa, as well as Imdur We will have to avoid JESUS inhibitor secondary to acute kidney injury Echocardiogram demonstrates possible worsening of his aortic valve stenosis, it weaned severe currently. Ejection fraction appears improved since last echocardiogram July 2018 demonstrating EF of 45%, 1/4 diastolic dysfunction, moderate aortic valve stenosis and moderate pulmonary hypertension With repeat echocardiogram as above this qualifies more is acute diastolic heart failure, with valvular component. Cardiology is consulted and following along Renal function has some worsening, and patient may have nephrotic syndrome. Will have nephrology evaluate Status: Acute Code(s): I50.20 - Unspecified systolic (congestive) heart failure (2) COPD (chronic obstructive pulmonary disease): Cannot rule out an element of COPD exacerbation. He is on oxygen chronically at 2 to 3 L. Doxycycline 100 mg twice daily Prednisone 40 mg daily Pulmonary toilet Steroid inhalation Status: Acute Code(s): J44.9 - Chronic obstructive pulmonary disease, unspecified (3) Anemia: Significantly anemic. Previous iron studies demonstrated iron deficiency. Repeat studies due as well. B12 level and folate are normal 1 unit packed red blood cells today. I believe he has symptomatic anemia. Still awaiting stool Hemoccult Status: Acute Code(s): D64.9 - Anemia, unspecified (4) Macrocytosis: B12 and folate levels were normal Status: Acute Code(s): D75.89 - Other specified diseases of blood and blood-forming organs (5) Leukocytosis: Unchanged. Some of this may reflect prednisone which was started as well. Status: Acute Code(s): D72.829 - Elevated white blood cell count, unspecified (6) Acute kidney injury: Acute on chronic kidney injury. Renal function has worsened Urinalysis no infection, but significant proteinuria. Could not rule out nephrotic syndrome Nephrology has been consulted Avoid JESUS inhibitors, renal toxic medication Stop potassium. Level slightly high Status: Acute Code(s): N17.9 - Acute kidney failure, unspecified (7) Elevated troponin: Secondary to aortic stenosis, heart failure Status: Acute Code(s): R79.89 - Other specified abnormal findings of blood chemistry Additional A&P Information Chronic kidney disease stage III Coronary artery disease with history of previous CABG. holding aspirin secondary to anemia Type 2 diabetes. Although home long-acting insulin was reduced he still had hypoglycemia in the night. Discontinue Lantus, sliding scale only GERD, continue Protonix BPH, continue Flomax Multiple other medical problems as outlined in past medical history SCDs for DVT prophylaxis. No further anticoagulation secondary to severe anemia. Attestations Medical Necessity Statement*: Needs continued hospitalization for further diuresis secondary to acute diastolic heart failure Coding Level of Care Code Acute Secondary Special Education Teacher for [facility] Fwd Diagnoses Congestive heart failure with left ventricular systolic dysfunction I50.20 COPD (chronic obstructive pulmonary disease) J44.9 Anemia D64.9 Macrocytosis D75.89 Leukocytosis D72.829 Acute kidney injury N17.9 Elevated troponin R79.89
[2019-08-24] MEDS: sodium chloride 0.9% 100 ML 50 ML (14:33)
--- NOTE | 2019-08-24 15:01 | PC.NURSE ---
1354 Conveyor Technician and practical nursing aide at bedside to transfuse 1 unit PRBC as ordered. Blood transfusion initiated by RN per protocol with 2 nurse verification. Pt tolerating well. VSS. No signs of reaction noted.
--- NOTE | 2019-08-24 16:12 | PC.CHAP ---
Pastoral Care Encounter/Spiritual Assessment Type of Contact [] Declined cash application clerk visit [] Patient/Family/Request visit [] Outpatient visit [] Follow-up visit [] Physician referral [] Code/Alert [] Routine visit [] Staff referral [] Actively dying [] Patient sleeping [] Family support [] [] Out of room [] Palliative care [] [] Receiving care in room [] Pre-surgical visit [] Trauma [] Long length of stay [] ICU visit [] Other: Relational/Emotional Strength [] Patient feels connected with others/family/visitors/staff [] Distress [] Loneliness/isolation [] Abandonment Spirituality of Patient [] Person of [place] [] Attends Confucianist of their [place] [] Believes in Prayer [] Reads Bible or Sabianism materials [] There are Spiritual issues to be addressed Metal Checker Interventions [] Prayer [] Active listening [] Non-anxious presence [] Spiritual/emotional support [] Crisis/trauma care [] Spiritual counseling [] Bereavement support [] Provided bereavement packet [] Provided Bible/devotional materials [] Provided toy/stuffed animal, coloring book to patient or family member [] Provided Communion [] Anointing/[place] [] Salvation [] Completed spiritual assessment [] Other: Impact on Illness or Injury [] Angry [] Fearful [] Anxious [] Often cries [] Exhaustion [] Unable to work [] Unable to attend jehovah's witness [] Unable to walk/stand [] Unable to read [] Unable to drive [] Unable to eat/drink [] Unable to sleep [] Unable to be with family [] Patient intubated [] Other: Summary Metal Checker request follow up visit. Time spent with patient 5 min
[2019-08-24 17:21] LABS: Glucose Point of Care 215 mg/dL (70-110)
--- NOTE | 2019-08-24 17:33 | PC.RESP ---
Patient given Pulmonary Rehab information.
[2019-08-24 18:49] LABS: Urine Creatinine 85 mg/dL (39-259)
[2019-08-24 19:02] LABS: Urine Protein Random 530 mg/dL
--- NOTE | 2019-08-24 19:19 | P.CONIM_ITS ---
Providers/Reason For Consult Consulting Physican/Specialty*: Nephrology Reason for Consult*: NORMAN Attending Physician: Saroj Frances MD Primary Care Provider: Anton Pak DO History of Present Illness History of Present Illness This is an 79 YoM presenting with SOB, increasing over the last month. He has chronic edema and believes he is at his standard weight. His abdomen does feel bloated. Since admission he has received therapy for heart failure including Metoprolol and BID lasix. At home he is Bumex and Metolazone. Creatinine has progressively increased since admission and is now 2.3. He sees Dr Orozco, for CKD 3. Was taking Ibuprofen regularly until last year, but no recent exposure. He passes his urine slowly and he doesn't feel he empties his bladder. No mejia. He denies the use of NSAIDs. He uses PPIs and is on them at this time. Echo shows a good EF, but mod to severe and diastolic dysfunction. Renal sono looks good. CXR on admission shows rather coarse interstitial pattern diffusely. Chronic in appearance. Likely fibrotic. medical history significant for moderate aortic stenosis, diastolic heart failure, chronic kidney disease stage III, history of CABG multivessel coronary artery disease, anemia, s/p TURP. Review of Systems General: Reports: 10 or more systems reviewed and unremarkable except in HPI and below Const: Reports: fatigue and malaise Card: Reports: edema; Denies: chest pain or palpitations Resp: Reports: shortness of breath; Denies: productive cough Meds/Allergies Home Medications and Allergies Home Medications Medication Instructions Recorded Confirmed Type acetaminophen [Tylenol Extra 1,000 mg PO TID PRN 08/22/19 08/22/19 History Strength] albuterol sulfate [ProAir HFA] 2 puff INHALATION 6XD PRN 08/22/19 08/22/19 History atorvastatin [Lipitor] 20 mg PO DAILY 08/22/19 08/22/19 History budesonide-formoterol [Symbicort] 2 puff INHALATION BID 08/22/19 08/22/19 History bumetanide See Rx Instructions .ROUTE .COMPLEX 08/22/19 08/22/19 History cholecalciferol (vitamin D3) 4,000 unit PO DAILY 08/22/19 08/22/19 History [Vitamin D3] ferrous sulfate 325 mg PO DAILY 08/22/19 08/22/19 History insulin glargine [Lantus Solostar See Rx Instructions .ROUTE .COMPLEX 08/22/19 08/22/19 History U-100 Insulin] ipratropium-albuterol 3 ml INHALATION QID 08/22/19 08/22/19 History isosorbide mononitrate 120 mg PO DAILY 08/22/19 08/22/19 History metolazone 2.5 mg PO BID 08/22/19 08/22/19 History metoprolol tartrate 50 mg PO BID 08/22/19 08/22/19 History pantoprazole [Protonix] 40 mg PO DAILY 08/22/19 08/22/19 History potassium chloride 20 meq PO TID 08/22/19 08/22/19 History tamsulosin [Flomax] 0.4 mg PO DAILY 08/22/19 08/22/19 History Allergies Allergy/AdvReac Type Severity Reaction Status Date / Time No Known Allergies Allergy Verified 08/22/19 11:12 Current Medications Current Medications Generic Name Dose Route Start Last Admin Trade Name Freq PRN Reason Stop Dose Admin Albuterol/Ipratropium 3 ml 08/24/19 10:55 08/24/19 14:10 Duoneb INHALATION 3 ml Q6H.RESPIRATORY PRN Administration SHORTNESS OF BREATH Atorvastatin Calcium 20 mg 08/23/19 09:00 08/24/19 09:59 Lipitor PO 20 mg DAILY SHOLA Administration Docusate Sodium 100 mg 08/22/19 18:00 08/24/19 18:40 Colace PO 100 mg BID SHOLA Administration Doxycycline Monohydrate 100 mg 08/22/19 18:00 08/24/19 18:40 Vibramycin PO 100 mg BID SHOLA Administration Protocol Furosemide 60 mg 08/22/19 22:00 08/24/19 10:32 Lasix IV 60 mg Q12H SHOLA Administration Insulin Aspart 0 unit 08/22/19 18:00 08/24/19 18:40 Novolog SUBCUT 6 unit WM&BEDTIME SHOLA Administration Protocol Isosorbide Mononitrate 120 mg 08/23/19 09:00 08/24/19 10:02 Imdur PO 120 mg DAILY SHOLA Administration Metoprolol Tartrate 50 mg 08/22/19 18:00 08/24/19 18:40 Lopressor PO 50 mg BID SHOLA Administration Pantoprazole Sodium 40 mg 08/23/19 09:00 08/24/19 10:04 Protonix PO 40 mg DAILY SHOLA Administration Prednisone 40 mg 08/23/19 09:00 08/24/19 10:04 Prednisone PO 40 mg DAILY SHOLA Administration Fluticasone/Salmeterol 1 puff 08/22/19 20:00 08/24/19 08:26 Advair Diskus 100-50 INHALATION 1 puff BID.RESPIRATORY SHOLA Administration Tamsulosin HCl 0.4 mg 08/23/19 09:00 08/24/19 10:04 Flomax PO 0.4 mg DAILY SHOLA Administration PFSH Acute PFSH: Family History Other Stroke Social History Smoking and tobacco status: former smoker Alcohol intake: never Substance/Drug Use: never Vitals/I&O/Wt Last Vital Signs Temp 97.7 F 08/24/19 16:00 Pulse 94 08/24/19 16:00 Resp 18 08/24/19 16:00 BP 162/92 08/24/19 16:00 Pulse Ox 99 08/24/19 16:00 08/24/19 08/24/19 08/24/19 06:59 14:59 22:59 Intake Total 240 / 240 350 / 590 Output Total 725 / 2625 220 / 220 Balance -725 / -1505 350 / 370 Physical Exam Const: COMMON NORMALS: no apparent distress, average body habitus and oriented x3 Eye: COMMON NORMALS: EOMs intact bilaterally Neck/C-Spine: COMMON NORMALS: no JVD Chest: CHEST: Yes abnormal inspection of the chest Resp: COMMON NORMALS: normal respiratory effort and no retractions Cardio: COMMON NORMALS: no JVD Extremity: COMMON NORMALS: normal to inspection and full ROM GENERAL: Yes edema Neuro: COMMON NORMALS: oriented x3 A&P Additional A&P Information 1. NORMAN - unclear etiology; likely related to cardiovascular hemodynamics, but both fluid overload and fluid overload can cause this. - he has significant anasarca pointing towards hypervolemia - DC PPI in case it is contributing - will check urine studies, quantify urinary protein - TSH and CPK - am labs - d/w Dr Frances; will hold Lasix today and watch for the next day or so to see how he responds - IVC filling pressures may be a useful tool 2. SOB - likely multifactoriaal from ILD, , CHF - on steroids Thanks, will follow closely Lexx Mccoy MD [facility] Renal [facility] [phone] Consult Attestations Medical Necessity Statement: eval for NORMAN Coding Level of Care Code Acute Executive Search Consultant for Brittanyg Parag
[2019-08-24 20:28] LABS: Thyroid Stimulating Hormone 1.71 uIU/mL (0.27-4.20)
[2019-08-24 20:34] LABS: Creatine Phosphokinase 491 U/L (39-308)
--- NOTE | 2019-08-24 20:42 | P.PN_ITS ---
Subjective Subjective: Interval history: Feeling better but still short of breath. Medications: Reviewed: Yes Vitals/I&O/Wt Last Vital Signs Temp 98.1 F 08/24/19 20:00 Pulse 95 08/24/19 20:00 Resp 18 08/24/19 20:00 BP 147/86 08/24/19 20:00 Pulse Ox 97 08/24/19 20:00 08/24/19 08/24/19 08/24/19 06:59 14:59 22:59 Intake Total 240 / 240 800 / 1040 Output Total 725 / 2625 220 / 220 440 / 660 Balance -725 / -1505 360 / 380 Physical Exam Narrative: EXAM NARRATIVE: GENERAL: Patient is alert, awake and oriented x3. He is bruised all over. He has typical anemia pale look nECK: No jugular vein distension. HEENT: No cyanosis. No icterus. No pallor. HEART: Regular S1 and S2. 2/6 systolic murmur, rub or gallop. LUNGS: Clear to auscultate bilaterally. ABDOMEN: Mildly distended with abdominal gut wall edema , nontender and nondistended. Positive bowel sounds. No guarding, rebound or tenderness. CENTRAL NERVOUS SYSTEM: Grossly nonfocal. EXTREMITIES: Lower extremities with 1+ edema bilaterally. Data : 08/24/19 05:05 08/24/19 05:05 A&P Assessment and plan (1) Anemia: Status post transfusion hopefully will improve Status: Acute Code(s): D64.9 - Anemia, unspecified (2) Congestive heart failure: Patient is in decompensated diastolic heart failure , Steadily improving continue IV Lasix. Status: Acute Qualifiers: Heart failure chronicity: acute on chronic Code(s): I50.9 - Heart failure, unspecified (3) Chronic renal disease: It is at the baseline. Status: Acute Code(s): N18.9 - Chronic kidney disease, unspecified (4) Aortic stenosis: Patient has moderate aortic stenosis at the moment there is no immediate concern regarding aortic valve replacement. Once euvolemic will may assess further Status: Acute Code(s): I35.0 - Nonrheumatic aortic (valve) stenosis Attestations Medical Necessity Statement*: Required continuation hospitalization for above defined care Coding Level of Care Code Established Pt Acute Hydraulic Elevator Constructor for Chg Fwd Patient Type Established History Expanded Problem Focused Exam Expanded Problem Focused Medical Decision Making Moderate Complexity Diagnoses Anemia D64.9 Congestive heart failure I50.9 Heart failure chronicity: acute on chronic Chronic renal disease N18.9 Aortic stenosis I35.0
[2019-08-24 21:03] LABS: Glucose Point of Care 269 mg/dL (70-110)
[2019-08-25] VITALS (12 sets, daily range): BP systolic 149–175; BP diastolic 70–103; PULSE 86–97; RESP 18–22; TEMP 36.3–37.1; O2SAT 93–98
[2019-08-25 02:48] LABS: Urine Creatinine 105 mg/dL (39-259); Urine Random Sodium 27 mmol/L
[2019-08-25 04:11] LABS: Urine Protein Random 644 mg/dL
[2019-08-25 05:39] LABS: Basophils % 0.2 %; Hemoglobin 8.1 g/dL (11.7-16.6); Lymphocytes # 0.9 10^3/uL (0.8-4.8); Lymphocytes % 4.8 %; Mean Corpuscular Volume 96.8 fL (80-94); Mean Platelet Volume 10.3 fL (7.4-10.4); Monocytes # 1.1 10^3/uL (0.2-0.9); Monocytes % 6.1 %; Neutrophils # 15.8 10^3/uL (1.8-7.7); Neutrophils % 88.1 %; Nucleated Red Blood Cells % 0 %; Platelet Count 339 10^3/cmm (130-400); Red Blood Count 2.79 10^6/uL (4.1-5.3); Red Cell Distribution Width 16.2 % (12.1-15.1)
[2019-08-25 06:03] LABS: Anion Gap 15.7 (5-19); Blood Urea Nitrogen 69 mg/dL (8-23); Carbon Dioxide 27 mmol/L (22-29); Chloride 104 mmol/L (98-107); Glucose 202 mg/dL (65-115); Osmolality Calculated 297 mOsm/kg (285-295); Potassium 5.7 mmol/L (3.5-5.1); Sodium 141 mmol/L (136-145)
[2019-08-25 06:28] LABS: Glucose Point of Care 188 mg/dL (70-110)
[2019-08-25] MEDS: atorvastatin 40 mg Tablet 20 MG PO (08:11)
[2019-08-25] MEDS: tamsulosin 0.4 mg Capsule PO (08:12)
[2019-08-25] MEDS: isosorbide mononitrate ER 60 mg Tablet 120 MG PO (08:12)
[2019-08-25] MEDS: doxycycline 100 mg Tablet PO (08:12)
[2019-08-25] MEDS: predniSONE 20 mg Tablet 40 MG PO (08:12)
[2019-08-25] MEDS: docusate sodium 100 mg Capsule PO ×2 (08:12→17:41)
[2019-08-25] MEDS: metoprolol tartrate 50 mg Tablet PO ×2 (08:12→17:41)
[2019-08-25] MEDS: ipratropium-albuterol 3 mL Neb INHALATION ×3 (09:12→19:42)
[2019-08-25 10:43] LABS: Glucose Point of Care 249 mg/dL (70-110)
[2019-08-25] MEDS: levofloxacin-dextrose 5 % 750 MG/150 ML PREMIX 150 MG IV (11:12)
[2019-08-25] MEDS: sodium polystyrene sulfonate 15 gm/60 mL Btl PO (11:14)
--- NOTE | 2019-08-25 11:49 | PM.PN ---
Subjective Subjective: Interval history: Bakari was admitted 3 days ago on the with shortness of breath and congestive heart failure. His echo has revealed worsening of his aortic stenosis from mild to moderate. He was also severely anemic with a hemoglobin below 7. With diuresis his creatinine is increased to 2.4. Nephrology saw him yesterday. His diuretics have been discontinued. He sets on a statin, Imdur, beta-vanessa. He feels like he is a little bit better. He still gets short of breath when he tries to walk. He has a long history of diastolic heart failure, anemia, COPD, chronic kidney disease, coronary disease with bypass surgery and diabetes. Medications: Reviewed: Yes Vitals/I&O/Wt Last Vital Signs Temp 97.5 F L 08/25/19 11:45 Pulse 94 08/25/19 11:45 Resp 18 08/25/19 11:45 BP 175/95 08/25/19 11:45 Pulse Ox 93 08/25/19 11:45 08/24/19 08/25/19 08/25/19 22:59 06:59 14:59 Intake Total 800 / 1040 236 / 236 Output Total 490 / 710 150 / 860 100 / 100 Balance 310 / 330 -150 / 180 136 / 136 Weight last 48 hrs Weight 288 lb 6.4 oz Physical Exam Narrative: EXAM NARRATIVE: GENERAL: In general he is comfortable sitting on the side of the bed HEENT: Exam within normal limits. NECK: Supple without jugular vein distention. The carotid upstroke is normal without bruits. BACK: Exam normal. LUNGS: Clear. Occasional moist rales in the bases HEART: Regular rate and rhythm. ABDOMEN: Benign without organomegaly or tenderness. EXTREMITIES: No edema. NEUROLOGIC: Exam normal. SKIN: Unremarkable. Data : 08/25/19 04:37 08/25/19 04:37 A&P Assessment and plan (1) Aortic stenosis: Status: Acute Code(s): I35.0 - Nonrheumatic aortic (valve) stenosis (2) Acute kidney injury: Status: Acute Code(s): N17.9 - Acute kidney failure, unspecified (3) Congestive heart failure with left ventricular systolic dysfunction: Status: Acute Code(s): I50.20 - Unspecified systolic (congestive) heart failure (4) COPD (chronic obstructive pulmonary disease): Status: Acute Code(s): J44.9 - Chronic obstructive pulmonary disease, unspecified (5) Anemia: Status: Acute Code(s): D64.9 - Anemia, unspecified (6) Chronic renal disease: Status: Acute Code(s): N18.9 - Chronic kidney disease, unspecified (7) Elevated troponin: Status: Acute Code(s): R79.89 - Other specified abnormal findings of blood chemistry (8) Pulmonary hypertension: Status: Acute Code(s): I27.20 - Pulmonary hypertension, unspecified (9) Type 2 diabetes mellitus: Status: Acute Code(s): E11.9 - Type 2 diabetes mellitus without complications (10) History of coronary artery bypass graft: Status: Acute Code(s): Z95.1 - Presence of aortocoronary bypass graft (11) Hyperlipidemia: Status: Acute Code(s): E78.5 - Hyperlipidemia, unspecified (12) Coronary artery disease: Status: Acute Code(s): I25.10 - Atherosclerotic heart disease of [place] coronary artery without angina pectoris Additional A&P Information For now we will continue to hold the diuretics due to his increasing creatinine. Those will be reinstituted as the creatinine comes down. Otherwise he is on the correct medications. No changes made today. Attestations Medical Necessity Statement*: Not applicable Coding Level of Care Code Acute Net Developer Consultant for g Fwd History Detailed Exam Detailed Medical Decision Making Moderate Complexity Diagnoses Aortic stenosis I35.0 Acute kidney injury N17.9 Congestive heart failure with left ventricular systolic dysfunction I50.20 COPD (chronic obstructive pulmonary disease) J44.9 Anemia D64.9 Chronic renal disease N18.9 Elevated troponin R79.89 Pulmonary hypertension I27.20 Type 2 diabetes mellitus E11.9 History of coronary artery bypass graft Z95.1 Hyperlipidemia E78.5 Coronary artery disease I25.10
--- NOTE | 2019-08-25 12:19 | PM.PN ---
Subjective Subjective: Interval history: Bakari reports he feels better. He is less short of breath than he was on admission. He reports he did have a bowel movement yesterday but this does not appear to have been tested for Hemoccult. Some cough. Medications: Reviewed: Yes Vitals/I&O/Wt Last Vital Signs Temp 97.5 F L 08/25/19 11:45 Pulse 94 08/25/19 11:45 Resp 18 08/25/19 11:45 BP 175/95 08/25/19 11:45 Pulse Ox 93 08/25/19 11:45 08/24/19 08/25/19 08/25/19 22:59 06:59 14:59 Intake Total 800 / 1040 472 / 472 Output Total 490 / 710 150 / 860 100 / 100 Balance 310 / 330 -150 / 180 372 / 372 Weight last 48 hrs Weight 130.816 kg Physical Exam Narrative: EXAM NARRATIVE: General exam is no apparent distress Neck is supple no lymphadenopathy or thyromegaly Cardiovascular regular rate and rhythm. 2/6 systolic murmur Lungs few crackles at the bases but improved aeration is noted Abdomen is soft, positive bowel sounds Extremities 2+ edema bilaterally Data : 08/25/19 04:37 08/25/19 04:37 A&P Assessment and plan (1) Congestive heart failure with left ventricular systolic dysfunction: Lasix held yesterday night secondary to worsening creatinine. Repeat creatinine this morning is slightly worse. Potassium is higher. Potassium was discontinued 2 days ago. Kayexalate 15 g p.o. x1 given for elevated potassium and will repeat level in approximately 4 hours. Continue beta-vanessa, as well as Imdur Avoid JESUS inhibitor secondary to acute kidney injury Echocardiogram demonstrates possible worsening of his aortic valve stenosis, it weaned severe currently. Ejection fraction appears improved since last echocardiogram July 2018 demonstrating EF of 45%, 1/4 diastolic dysfunction, moderate aortic valve stenosis and moderate pulmonary hypertension With repeat echocardiogram as above this qualifies more is acute diastolic heart failure, with valvular component. Cardiology is consulted and following along Renal function has some worsening, and patient may have nephrotic syndrome. Nephrology is evaluating Status: Acute Code(s): I50.20 - Unspecified systolic (congestive) heart failure (2) COPD (chronic obstructive pulmonary disease): Cannot rule out an element of COPD exacerbation. He is on oxygen chronically at 2 to 3 L. Secondary to abnormal pattern on x-ray that may be fibrosis versus interstitial fluid cannot rule out pneumonia. Will discontinue doxycycline and placed on Levaquin. Continue prednisone 40 mg daily Pulmonary toilet Steroid inhalation Status: Acute Code(s): J44.9 - Chronic obstructive pulmonary disease, unspecified (3) Anemia: Significantly anemic. Previous iron studies demonstrated iron deficiency. Repeat studies due as well. B12 level and folate are normal He was transfused 1 unit of packed red blood cells yesterday. Hemoglobin increased to 8.1 from 7.4. Still awaiting stool Hemoccult CBC tomorrow Status: Acute Code(s): D64.9 - Anemia, unspecified (4) Macrocytosis: B12 and folate levels were normal Status: Acute Code(s): D75.89 - Other specified diseases of blood and blood-forming organs (5) Leukocytosis: Unchanged. Some of this may reflect prednisone which was started as well. Status: Acute Code(s): D72.829 - Elevated white blood cell count, unspecified (6) Acute kidney injury: Acute on chronic kidney injury. Renal function has worsened with diuresis. Diuretic dose was held last night. Urinalysis no infection, but significant proteinuria. Could not rule out nephrotic syndrome Nephrology has been consulted Avoid JESUS inhibitors, renal toxic medication Potassium stopped 2 days ago. Kayexalate today as shown under CHF plan Repeat BMP tomorrow, this afternoon Status: Acute Code(s): N17.9 - Acute kidney failure, unspecified (7) Elevated troponin: Secondary to aortic stenosis, heart failure Status: Acute Code(s): R79.89 - Other specified abnormal findings of blood chemistry Additional A&P Information Chronic kidney disease stage III Coronary artery disease with history of previous CABG. holding aspirin secondary to anemia Type 2 diabetes. Although home long-acting insulin was reduced he still had hypoglycemia in the night. Discontinue Lantus, sliding scale only GERD, continue Protonix BPH, continue Flomax Multiple other medical problems as outlined in past medical history SCDs for DVT prophylaxis. No further anticoagulation secondary to severe anemia. Attestations Medical Necessity Statement*: Needs continued hospital stay for treatment of congestive heart failure, evaluation of chronic kidney disease. Coding Level of Care Code Acute Floor Care Specialist for Jennifer Tuttle Diagnoses Congestive heart failure with left ventricular systolic dysfunction I50.20 COPD (chronic obstructive pulmonary disease) J44.9 Anemia D64.9 Macrocytosis D75.89 Leukocytosis D72.829 Acute kidney injury N17.9 Elevated troponin R79.89
--- NOTE | 2019-08-25 13:15 | P.PN_ITS ---
Subjective Subjective: Interval history: Breathing more comfortably, mobilizing well on the floor. Still has edema but this is stable. No uremic Sx. Passing urine well without GARCIA Medications: Reviewed: Yes Vitals/I&O/Wt Last Vital Signs Temp 97.5 F L 08/25/19 11:45 Pulse 94 08/25/19 11:45 Resp 18 08/25/19 11:45 BP 175/95 08/25/19 11:45 Pulse Ox 93 08/25/19 11:45 08/24/19 08/25/19 08/25/19 22:59 06:59 14:59 Intake Total 800 / 1040 472 / 472 Output Total 490 / 710 150 / 860 100 / 100 Balance 310 / 330 -150 / 180 372 / 372 Weight last 48 hrs Weight 130.816 kg Physical Exam Const: COMMON NORMALS: oriented x3 HENMT: COMMON NORMALS: normocephalic and head/scalp atraumatic HEAD & SCALP: normocephalic and atraumatic Eye: COMMON NORMALS: EOMs intact bilaterally Neck/C-Spine: COMMON NORMALS: no JVD Lymph: LYMPHATIC: no lymphadenopathy noted Chest: CHEST: Yes abnormal inspection of the chest Resp: COMMON NORMALS: normal respiratory effort and no retractions AUSCULTATION: rales and diminished lung sounds Cardio: COMMON NORMALS: no JVD and regular rate RATE: regular rate GI: COMMON NORMALS: normal to inspection, nondistended, normoactive bowel sounds Extremity: COMMON NORMALS: normal to inspection GENERAL: Yes edema Neuro: COMMON NORMALS: oriented x3 Data : 08/25/19 04:37 08/25/19 04:37 A&P Additional A&P Information 1. 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 SOB - likely multifactorial from ILD, , CHF - improving now - on steroids Thanks, will follow closely Lexx Mccoy MD [facility] Renal [facility] [phone] Attestations 2 Medical Necessity Statement*: eval for NORMAN Coding Level of Care Code Acute Pathology Technologist for Jennifer Tuttle
--- NOTE | 2019-08-25 14:11 | PC.CHAP ---
Pastoral Care Encounter/Spiritual Assessment Type of Contact [] Declined mailing clerk visit [] Patient/Family/Request visit [] Outpatient visit [] Follow-up visit [] Physician referral [] Code/Alert [x] Routine visit [] Staff referral [] Actively dying [] Patient sleeping [x] Family support [] [] Out of room [] Palliative care [] [] Receiving care in room [] Pre-surgical visit [] Trauma [] Long length of stay [] ICU visit [] Other: Relational/Emotional Strength [x] Patient feels connected with others/family/visitors/staff [] Distress [] Loneliness/isolation [] Abandonment Spirituality of Patient [x] Person of [place] [] Attends Amish of their [place] [x] Believes in Prayer [] Reads Bible or Zoroastrianism materials [] There are Spiritual issues to be addressed Management Assistant Interventions [x] Prayer [x] Active listening [x] Non-anxious presence [x] Spiritual/emotional support [] Crisis/trauma care [x] Spiritual counseling [] Bereavement support [] Provided bereavement packet [] Provided Bible/devotional materials [] Provided toy/stuffed animal, coloring book to patient or family member [] Provided Communion [] Anointing/[place] [] Salvation [x] Completed spiritual assessment [] Other: Impact on Illness or Injury [] Angry [] Fearful [] Anxious [] Often cries [] Exhaustion [] Unable to work [] Unable to attend yazdanism [] Unable to walk/stand [] Unable to read [] Unable to drive [] Unable to eat/drink [] Unable to sleep [] Unable to be with family [] Patient intubated [] Other: Summary Patient said that he was feelimg better and looking foreword to going home. Management Assistant prayed with him and his . Time spent with patient 15 min.
[2019-08-25 15:33] LABS: Anion Gap 21.2 (5-19); Blood Urea Nitrogen 67 mg/dL (8-23); Calcium 9.1 mg/dL (8.5-10.5); Carbon Dioxide 19 mmol/L (22-29); Chloride 102 mmol/L (98-107); Glucose 219 mg/dL (65-115); Osmolality Calculated 290 mOsm/kg (285-295); Potassium 5.2 mmol/L (3.5-5.1); Sodium 137 mmol/L (136-145)
[2019-08-25 16:39] LABS: Glucose Point of Care 246 mg/dL (70-110)
[2019-08-25 21:24] LABS: Glucose Point of Care 399 mg/dL (70-110)
[2019-08-26] VITALS (10 sets, daily range): BP systolic 148–169; BP diastolic 74–95; PULSE 82–96; RESP 18–20; TEMP 36.6–37; O2SAT 90–98
[2019-08-26 06:10] LABS: Basophils % 0.2 %; Hematocrit 28.9 % (42.0-52.0); Hemoglobin 8.4 g/dL (11.7-16.6); Lymphocytes # 0.9 10^3/uL (0.8-4.8); Lymphocytes % 4.8 %; Mean Corpuscular HGB Conc 29.1 g/dL (30.0-36.0); Mean Corpuscular Hemoglobin 28.5 pg (28.0-34.0); Mean Platelet Volume 10.2 fL (7.4-10.4); Monocytes # 1.4 10^3/uL (0.2-0.9); Monocytes % 7.4 %; Neutrophils % 86.4 %; Nucleated Red Blood Cells % 0 %; Platelet Count 347 10^3/cmm (130-400); Red Blood Count 2.95 10^6/uL (4.1-5.3); Red Cell Distribution Width 15.9 % (12.1-15.1); White Blood Count 18.5 10^3/uL (4.0-10.0)
[2019-08-26 06:30] LABS: Blood Urea Nitrogen 70 mg/dL (8-23); Carbon Dioxide 24 mmol/L (22-29); Chloride 103 mmol/L (98-107); Glucose 278 mg/dL (65-115); Osmolality Calculated 299 mOsm/kg (285-295); Sodium 140 mmol/L (136-145)
[2019-08-26 06:42] LABS: Glucose Point of Care 258 mg/dL (70-110)
--- NOTE | 2019-08-26 06:46 | P.PN_ITS ---
Subjective Subjective: Interval history: feels better. still swollen and sob. no n/v/f/c/beckwith/c/d Medications: Reviewed: Yes Medication Review Details: Current Medications Acetaminophen (Tylenol) 650 mg PO Q6H PRN PRN Reason: Mild/Mod Pain Or Temp >/= 101 Albuterol/Ipratropium (Duoneb) 3 ml INHALATION Q6H.RESPIRATORY PRN PRN Reason: SHORTNESS OF BREATH Last Admin: 08/25/19 19:42 Dose: 3 ml Documented by: Atorvastatin Calcium (Lipitor) 20 mg PO DAILY [facility] Last Admin: 08/25/19 08:11 Dose: 20 mg Documented by: Dextrose (D50w) 25 ml IVP ONCE PRN; Protocol PRN Reason: hypoglycemia protocol Dextrose (D50w) 50 ml IVP PRN PRN; Protocol PRN Reason: hypoglycemia protocol Docusate Sodium (Colace) 100 mg PO BID [facility] Last Admin: 08/25/19 17:41 Dose: 100 mg Documented by: Glucagon (Glucagen) 1 mg IM ONCE PRN; Protocol PRN Reason: Adult Acute Hypoglycemia Prot. Dextrose (D5w) 500 mls @ 100 mls/hr IV ONCE PRN; Protocol PRN Reason: Adult Acute Hypoglycemia Prot Levofloxacin/Dextrose (Levaquin-D5w) 750 mg in 150 mls @ 150 mls/hr IV Q48H [facility]; Protocol Last Admin: 08/25/19 11:12 Dose: 150 mls/hr Documented by: Insulin Aspart (Novolog) 0 unit SUBCUT WM&BEDTIME [facility]; Protocol Last Admin: 08/25/19 21:50 Dose: 14 unit Documented by: Isosorbide Mononitrate (Imdur) 120 mg PO DAILY [facility] Last Admin: 08/25/19 08:12 Dose: 120 mg Documented by: Metoprolol Tartrate (Lopressor) 50 mg PO BID [facility] Last Admin: 08/25/19 17:41 Dose: 50 mg Documented by: Ondansetron HCl (Zofran) 4 mg IVP Q8H PRN PRN Reason: vomiting, or N/V if npo Prednisone (Prednisone) 40 mg PO DAILY [facility] Last Admin: 08/25/19 08:12 Dose: 40 mg Documented by: Fluticasone/Salmeterol (Advair Diskus 100-50) 1 puff INHALATION BID.RESPIRATORY [facility] Last Admin: 08/25/19 19:42 Dose: 1 puff Documented by: Tamsulosin HCl (Flomax) 0.4 mg PO DAILY [facility] Last Admin: 08/25/19 08:12 Dose: 0.4 mg Documented by: Vitals/I&O/Wt Last Vital Signs Temp 98.6 F 08/26/19 03:58 Pulse 92 08/26/19 03:58 Resp 19 H 08/26/19 03:58 BP 149/74 08/26/19 03:58 Pulse Ox 96 08/26/19 03:58 08/25/19 08/25/19 08/26/19 14:59 22:59 06:59 Intake Total 472 / 472 772 / 1244 Output Total 100 / 100 475 / 575 275 / 850 Balance 372 / 372 297 / 669 -275 / 394 Weight last 48 hrs Weight 130.816 kg Physical Exam Narrative: EXAM NARRATIVE: swollen, comfortable sitting up vs noted heent- nc/at, eo i, anicteric neck supple lungs crackles b/l heart reg, +systolic murmur abd soft nt donnie, +BS ext b/l edema neuro- a,a, o x 3 Data : 08/26/19 05:17 08/26/19 05:17 A&P Additional A&P Information 79 yr old man obesity, distolic dysfunction, . 1. CKD stage 3b/ 4- b/l cr 1.8 from dm, htn, CRS 2. NORMAN - from CRS, progression of dm- w/ significant proteinuria. also has diastolic dysfunction and . once euvolemic- consider eval for TAVR -recommend restART lasix -may need ARB -has approx 6 gm proteinuria -needs glucose and BP control -consider SGLT-2 inhibitor as shown to be helpful for cardiac and renal protection in pts w/ dm, proteinuria, CAD -as renal fxn is progressively declining -check phos, pth -save the vein protocol 3. DM control- no metformin 4. htn 5. CHF/ - per cardiology 6. anemia- iv iron, then consider epo -f/u speps/ upep meds reviewed time spent >30 minutes Attestations Medical Necessity Statement*: akd, chf, as, anemia Time Spent in Patient Care: 16 - 35 minutes Coding Level of Care Code Acute Endocrinology Physician for Chg Fwd
--- NOTE | 2019-08-26 07:39 | PM.PN ---
Subjective Subjective: Interval history: Bakari states that he feels a little better today. He is less short of breath. He is having difficulty sleeping at night. He thinks his days and nights are mixed up . Medications: Reviewed: Yes Vitals/I&O/Wt Last Vital Signs Temp 97.9 F 08/26/19 07:28 Pulse 82 08/26/19 07:28 Resp 18 08/26/19 07:28 BP 161/95 08/26/19 07:28 Pulse Ox 97 08/26/19 07:28 08/25/19 08/26/19 08/26/19 22:59 06:59 14:59 Intake Total 772 / 1244 Output Total 475 / 575 275 / 850 Balance 297 / 669 -275 / 394 Weight last 48 hrs Weight 288 lb 6.4 oz Physical Exam Narrative: EXAM NARRATIVE: GENERAL: In general he is sitting upright and not short of breath at rest HEENT: Exam within normal limits. NECK: Supple without jugular vein distention. The carotid upstroke is normal without bruits. BACK: Exam normal. LUNGS: Clear. HEART: Regular rate and rhythm. ABDOMEN: Benign without organomegaly or tenderness. EXTREMITIES: No edema. NEUROLOGIC: Exam normal. SKIN: Unremarkable. Data : 08/26/19 05:17 08/26/19 05:17 A&P Assessment and plan (1) Coronary artery disease: Status: Acute Code(s): I25.10 - Atherosclerotic heart disease of [place] coronary artery without angina pectoris (2) Hyperlipidemia: Status: Acute Code(s): E78.5 - Hyperlipidemia, unspecified (3) History of coronary artery bypass graft: Status: Acute Code(s): Z95.1 - Presence of aortocoronary bypass graft (4) Type 2 diabetes mellitus: Status: Acute Code(s): E11.9 - Type 2 diabetes mellitus without complications (5) Pulmonary hypertension: Status: Acute Code(s): I27.20 - Pulmonary hypertension, unspecified (6) Aortic stenosis: Status: Acute Code(s): I35.0 - Nonrheumatic aortic (valve) stenosis (7) Acute kidney injury: Status: Acute Code(s): N17.9 - Acute kidney failure, unspecified (8) Congestive heart failure with left ventricular systolic dysfunction: Status: Acute Code(s): I50.20 - Unspecified systolic (congestive) heart failure (9) COPD (chronic obstructive pulmonary disease): Status: Acute Code(s): J44.9 - Chronic obstructive pulmonary disease, unspecified (10) Anemia: Status: Acute Code(s): D64.9 - Anemia, unspecified (11) Congestive heart failure: Status: Acute Qualifiers: Heart failure chronicity: acute on chronic Code(s): I50.9 - Heart failure, unspecified (12) Chronic renal disease: Status: Acute Code(s): N18.9 - Chronic kidney disease, unspecified (13) Elevated troponin: Status: Acute Code(s): R79.89 - Other specified abnormal findings of blood chemistry Additional A&P Information He has been placed back on Lasix 40 mg IV twice daily. We will see what this does for the ensuing 24 to 48 hours. No other changes were made. Attestations Medical Necessity Statement*: Not applicable Coding Level of Care Code Acute Hydroelectric Plant Technician for Jennifer Fwd History Detailed Exam Detailed Medical Decision Making Moderate Complexity Diagnoses Coronary artery disease I25.10 Hyperlipidemia E78.5 History of coronary artery bypass graft Z95.1 Type 2 diabetes mellitus E11.9 Pulmonary hypertension I27.20 Aortic stenosis I35.0 Acute kidney injury N17.9 Congestive heart failure with left ventricular systolic dysfunction I50.20 COPD (chronic obstructive pulmonary disease) J44.9 Anemia D64.9 Congestive heart failure I50.9 Heart failure chronicity: acute on chronic Chronic renal disease N18.9 Elevated troponin R79.89 Time Spent (min) 28
[2019-08-26 08:30] LABS: Calcium 9.2 mg/dL (8.5-10.5); Parathyroid Hormone 197.9 pg/mL (15-65)
[2019-08-26] MEDS: FUROsemide 10 mg/mL SDV 4mL 40 MG IVP ×2 (09:38→20:05)
[2019-08-26] MEDS: metoprolol tartrate 50 mg Tablet PO ×2 (09:39→18:08)
[2019-08-26] MEDS: atorvastatin 40 mg Tablet 20 MG PO (09:39)
[2019-08-26] MEDS: isosorbide mononitrate ER 60 mg Tablet 120 MG PO (09:39)
[2019-08-26] MEDS: tamsulosin 0.4 mg Capsule PO (09:39)
[2019-08-26] MEDS: predniSONE 20 mg Tablet 40 MG PO (09:39)
[2019-08-26] MEDS: docusate sodium 100 mg Capsule PO ×2 (09:40→18:08)
[2019-08-26 10:59] LABS: Glucose Point of Care 252 mg/dL (70-110)
--- NOTE | 2019-08-26 13:15 | P.PN_ITS ---
Subjective Subjective: Interval history: Bakari reports he is feeling somewhat better. He is not as short of breath. He believes his legs are less swollen. Does not feel back to baseline. Medications: Reviewed: Yes Vitals/I&O/Wt Last Vital Signs Temp 97.9 F 08/26/19 11:37 Pulse 87 08/26/19 11:37 Resp 18 08/26/19 11:37 BP 162/79 08/26/19 11:37 Pulse Ox 95 08/26/19 11:37 08/25/19 08/26/19 08/26/19 22:59 06:59 14:59 Intake Total 772 / 1244 540.5 / 540.5 Output Total 475 / 575 275 / 850 400 / 400 Balance 297 / 669 -275 / 394 140.5 / 140.5 Weight last 48 hrs Weight 130.816 kg Physical Exam Narrative: EXAM NARRATIVE: General exam is no apparent distress Neck is supple no lymphadenopathy or thyromegaly Cardiovascular regular rate and rhythm. 2/6 systolic murmur Lungs few bibasilar crackles Abdomen is soft, positive bowel sounds Extremities 2+ edema bilaterally Data : 08/26/19 05:17 08/26/19 05:17 A&P Assessment and plan (1) Congestive heart failure with left ventricular systolic dysfunction: Lasix reinstituted today 40 mg IV every 12 hours Close follow-up of renal function and potassium Continue beta-vanessa, as well as Imdur Avoid JESUS inhibitor secondary to acute kidney injury Echocardiogram demonstrates possible worsening of his aortic valve stenosis, it weaned severe currently. Ejection fraction appears improved since last echocardiogram July 2018 demonstrating EF of 45%, 1/4 diastolic dysfunction, moderate aortic valve stenosis and moderate pulmonary hypertension With repeat echocardiogram as above this qualifies more is acute diastolic heart failure, with valvular component. Cardiology is consulted and following along Renal function worsened initially with diuresis and there is concern of significant proteinuria/nephrotic syndrome. Nephrology is following. Status: Acute Code(s): I50.20 - Unspecified systolic (congestive) heart failure (2) COPD (chronic obstructive pulmonary disease): Cannot rule out an element of COPD exacerbation. He is on oxygen chronically at 2 to 3 L. Secondary to abnormal pattern on x-ray that may be fibrosis versus interstitial fluid cannot rule out pneumonia. Continue Levaquin Continue prednisone 40 mg daily Pulmonary toilet Steroid inhalation Status: Acute Code(s): J44.9 - Chronic obstructive pulmonary disease, unspecified (3) Anemia: Significantly anemic. Previous iron studies demonstrated iron deficiency. Repeat studies due as well. B12 level and folate are normal He was transfused 1 unit of packed red blood cells August 24. Hemoglobin increased to 8.1 from 7.4. It is 8.4 per today Still awaiting stool Hemoccult CBC tomorrow Status: Acute Code(s): D64.9 - Anemia, unspecified (4) Macrocytosis: B12 and folate levels were normal Status: Acute Code(s): D75.89 - Other specified diseases of blood and blood-forming organs (5) Leukocytosis: Unchanged. Some of this may reflect prednisone which was started as well. Status: Acute Code(s): D72.829 - Elevated white blood cell count, unspecified (6) Acute kidney injury: Acute on chronic kidney injury. Urinalysis no infection, but significant proteinuria. Could not rule out nephrotic syndrome Nephrology is now following Avoid JESUS inhibitors, renal toxic medication Kayexalate did have to be given during his hospital course secondary to hyperkalemia Repeat laboratory tomorrow Status: Acute Code(s): N17.9 - Acute kidney failure, unspecified (7) Elevated troponin: Secondary to aortic stenosis, heart failure Status: Acute Code(s): R79.89 - Other specified abnormal findings of blood chemistry Additional A&P Information Chronic kidney disease stage III Coronary artery disease with history of previous CABG. holding aspirin secondary to anemia Type 2 diabetes. Although home long-acting insulin was reduced he still had hypoglycemia in the night. Discontinue Lantus, sliding scale only GERD, continue Protonix BPH, continue Flomax Multiple other medical problems as outlined in past medical history SCDs for DVT prophylaxis. No further anticoagulation secondary to severe anemia. Attestations Medical Necessity Statement*: Needs continued hospitalization for further diuresis secondary to acute diastolic heart failure Coding Level of Care Code Acute Helmet Hat Puncher for Jennifer Fwchapo Diagnoses Congestive heart failure with left ventricular systolic dysfunction I50.20 COPD (chronic obstructive pulmonary disease) J44.9 Anemia D64.9 Macrocytosis D75.89 Leukocytosis D72.829 Acute kidney injury N17.9 Elevated troponin R79.89
[2019-08-26] MEDS: ipratropium-albuterol 3 mL Neb INHALATION ×2 (14:35→20:00)
[2019-08-26 16:53] LABS: Glucose Point of Care 338 mg/dL (70-110)
[2019-08-26] MEDS: trazodone 100 mg Tablet PO (20:05)
[2019-08-26 20:40] LABS: Glucose Point of Care 329 mg/dL (70-110)
[2019-08-27] VITALS (10 sets, daily range): BP systolic 153–172; BP diastolic 66–95; PULSE 76–88; RESP 14–98; TEMP 36.2–37.1; O2SAT 3–99
[2019-08-27] MEDS: ipratropium-albuterol 3 mL Neb INHALATION (01:58)
[2019-08-27 06:21] LABS: Glucose Point of Care 229 mg/dL (70-110)
[2019-08-27 06:29] LABS: Basophils % 0.2 %; Eosinophils % 0.1 %; Hematocrit 29.8 % (42.0-52.0); Hemoglobin 8.7 g/dL (11.7-16.6); Lymphocytes # 1.2 10^3/uL (0.8-4.8); Lymphocytes % 6.5 %; Mean Corpuscular HGB Conc 29.2 g/dL (30.0-36.0); Mean Corpuscular Hemoglobin 28.7 pg (28.0-34.0); Mean Corpuscular Volume 98.3 fL (80-94); Mean Platelet Volume 10.2 fL (7.4-10.4); Monocytes # 1.5 10^3/uL (0.2-0.9); Monocytes % 8.1 %; Neutrophils # 15.5 10^3/uL (1.8-7.7); Neutrophils % 83.9 %; Nucleated Red Blood Cells % 0 %; Platelet Count 329 10^3/cmm (130-400); Red Blood Count 3.03 10^6/uL (4.1-5.3); Red Cell Distribution Width 15.9 % (12.1-15.1); White Blood Count 18.5 10^3/uL (4.0-10.0)
[2019-08-27 06:35] LABS: Alanine Aminotransferase 21 U/L (0-41); Alkaline Phosphatase 91 IU/L (40-130); Anion Gap 16.9 (5-19); Aspartate Amino Transferase 16 U/L (0-40); Blood Urea Nitrogen 69 mg/dL (8-23); Carbon Dioxide 25 mmol/L (22-29); Chloride 101 mmol/L (98-107); Glucose 247 mg/dL (65-115); Magnesium 2.4 mg/dL (1.7-2.3); Phosphorus 4.8 mg/dL (2.5-4.5); Potassium 4.9 mmol/L (3.5-5.1); Sodium 138 mmol/L (136-145); Total Bilirubin 0.4 mg/dL (0.15-1.2)
--- NOTE | 2019-08-27 07:15 | PM.PN ---
Subjective Subjective: Interval history: feels better. less swollen and dec sob. Medications: Reviewed: Yes Medication Review Details: Current Medications Acetaminophen (Tylenol) 650 mg PO Q6H PRN PRN Reason: Mild/Mod Pain Or Temp >/= 101 Albuterol/Ipratropium (Duoneb) 3 ml INHALATION Q6H.RESPIRATORY PRN PRN Reason: SHORTNESS OF BREATH Last Admin: 08/27/19 01:58 Dose: 3 ml Documented by: Atorvastatin Calcium (Lipitor) 20 mg PO DAILY [facility] Last Admin: 08/26/19 09:39 Dose: 20 mg Documented by: Dextrose (D50w) 25 ml IVP ONCE PRN; Protocol PRN Reason: hypoglycemia protocol Dextrose (D50w) 50 ml IVP PRN PRN; Protocol PRN Reason: hypoglycemia protocol Docusate Sodium (Colace) 100 mg PO BID [facility] Last Admin: 08/26/19 18:08 Dose: 100 mg Documented by: Furosemide (Lasix) 40 mg IVP Q12H [facility] Last Admin: 08/26/19 20:05 Dose: 40 mg Documented by: Glucagon (Glucagen) 1 mg IM ONCE PRN; Protocol PRN Reason: Adult Acute Hypoglycemia Prot. Dextrose (D5w) 500 mls @ 100 mls/hr IV ONCE PRN; Protocol PRN Reason: Adult Acute Hypoglycemia Prot Levofloxacin/Dextrose (Levaquin-D5w) 750 mg in 150 mls @ 150 mls/hr IV Q48H [facility]; Protocol Last Admin: 08/25/19 11:12 Dose: 150 mls/hr Documented by: Ferric Sodium Gluconate 125 mg (/ Sodium Chloride) 110 mls @ 110 mls/hr IV Q24H [facility] Stop: 09/02/19 08:59 Last Admin: 08/26/19 10:11 Dose: 110 mls/hr Documented by: Insulin Aspart (Novolog) 0 unit SUBCUT WM&BEDTIME [facility]; Protocol Last Admin: 08/26/19 21:25 Dose: 12 unit Documented by: Isosorbide Mononitrate (Imdur) 120 mg PO DAILY [facility] Last Admin: 08/26/19 09:39 Dose: 120 mg Documented by: Metoprolol Tartrate (Lopressor) 50 mg PO BID [facility] Last Admin: 08/26/19 18:08 Dose: 50 mg Documented by: Ondansetron HCl (Zofran) 4 mg IVP Q8H PRN PRN Reason: vomiting, or N/V if npo Prednisone (Prednisone) 40 mg PO DAILY [facility] Last Admin: 08/26/19 09:39 Dose: 40 mg Documented by: Fluticasone/Salmeterol (Advair Diskus 100-50) 1 puff INHALATION BID.RESPIRATORY [facility] Last Admin: 08/26/19 20:00 Dose: 1 puff Documented by: Tamsulosin HCl (Flomax) 0.4 mg PO DAILY [facility] Last Admin: 08/26/19 09:39 Dose: 0.4 mg Documented by: Trazodone HCl (Desyrel) 100 mg PO BEDTIME PRN PRN Reason: INSOMNIA Last Admin: 08/26/19 20:05 Dose: 100 mg Documented by: Vitals/I&O/Wt Last Vital Signs Temp 97.6 F 08/27/19 04:00 Pulse 88 08/27/19 04:00 Resp 18 08/27/19 04:00 BP 153/82 08/27/19 04:00 Pulse Ox 97 08/27/19 04:00 08/26/19 08/27/19 08/27/19 22:59 06:59 14:59 Intake Total 300 / 1080.5 Output Total 325 / 1050 500 / 1550 Balance -25 / 30.5 -500 / -469.5 Physical Exam Narrative: EXAM NARRATIVE: swollen, comfortable sitting up vs noted heent- nc/at, eomi, anicteric neck supple lungs crackles b/l heart reg, +systolic murmur abd soft nt donnie, +BS ext b/l edema neuro- a,a, o x 3 Data : 08/27/19 06:02 08/27/19 06:02 Micro: Microbiology 08/25/19 13:20 Occult Blood (FIT) - Final Stool - Stool Aspirate A&P Additional A&P Information 79 yr old man obesity, distolic dysfunction, . 1. CKD stage 3b/ 4- b/l cr 1.8 from dm, htn, CRS 2. NORMAN - from CRS, progression of dm- w/ significant proteinuria. also has diastolic dysfunction and . once euvolemic- consider eval for TAVR -monitor on lasix -may need ARB -has approx 6 gm proteinuria -needs glucose and BP control -consider SGLT-2 inhibitor as shown to be helpful for cardiac and renal protection in pts w/ dm, proteinuria, CAD -as renal fxn is progressively declining, recommend save the vein protocol 3. DM control- no metformin 4. htn- monitor w/ diuresis 5. CHF/ - per cardiology 6. anemia- iv iron, then consider epo -f/u speps/ upep 7. [id number]- pth 197- add calcitriol. monitor phos meds reviewed time spent 30 minutes Attestations Medical Necessity Statement*: chf, asm ckd Time Spent in Patient Care: 16 - 35 minutes (>than 50% of time spent in counselling and/or direct pt care on unit). Coding Level of Care Code Acute Cna Ltc for Jennifer Tuttle
[2019-08-27] MEDS: isosorbide mononitrate ER 60 mg Tablet 120 MG PO (08:15)
[2019-08-27] MEDS: atorvastatin 40 mg Tablet 20 MG PO (08:16)
[2019-08-27] MEDS: predniSONE 20 mg Tablet 40 MG PO (08:16)
[2019-08-27] MEDS: metoprolol tartrate 50 mg Tablet PO ×2 (08:16→17:24)
[2019-08-27] MEDS: docusate sodium 100 mg Capsule PO ×2 (08:16→17:25)
[2019-08-27] MEDS: tamsulosin 0.4 mg Capsule PO (08:16)
[2019-08-27] MEDS: calcitriol 0.25 mcg Capsule PO (08:17)
[2019-08-27] MEDS: FUROsemide 10 mg/mL SDV 4mL 40 MG IVP ×2 (08:47→20:59)
--- NOTE | 2019-08-27 11:25 | DCPLANNER ---
Pt does have medicare and is familiar with the important message from the same. Pg 2 is reviewed and signed by pt. No questions, copy provided.
[2019-08-27] MEDS: levofloxacin-dextrose 5 % 750 MG/150 ML PREMIX 150 MG IV (12:13)
[2019-08-27 12:40] LABS: Glucose Point of Care 242 mg/dL (70-110)
[2019-08-27 17:09] LABS: Glucose Point of Care 342 mg/dL (70-110)
--- NOTE | 2019-08-27 19:55 | P.PN_ITS ---
Subjective Subjective: Interval history: Says he is feeling fine. Vitals/I&O/Wt Last Vital Signs Temp 98.8 F 08/27/19 16:00 Pulse 87 08/27/19 16:00 Resp 16 08/27/19 16:00 BP 172/95 08/27/19 16:00 Pulse Ox 96 08/27/19 16:00 08/27/19 08/27/19 08/27/19 06:59 14:59 22:59 Intake Total 240 / 240 Output Total 500 / 1550 750 / 750 600 / 1350 Balance -500 / -469.5 -510 / -510 -600 / -1110 Physical Exam Narrative: EXAM NARRATIVE: GENERAL: Patient is alert, awake and oriented x3. NECK: No jugular vein distension. HEENT: No cyanosis. No icterus. No pallor. HEART: Regular S1 and S2. No murmur, rub or gallop. LUNGS: Clear to auscultate bilaterally. ABDOMEN: Soft, nontender and nondistended. Positive bowel sounds. No guarding, rebound or tenderness. CENTRAL NERVOUS SYSTEM: Grossly nonfocal. EXTREMITIES: Lower extremities without edema bilaterally. Data : 08/27/19 06:02 08/27/19 06:02 Micro: Microbiology 08/25/19 13:20 Occult Blood (FIT) - Final Stool - Stool Aspirate A&P Assessment and plan (1) Coronary artery disease: Continue medicine. Patient is stable Status: Acute Code(s): I25.10 - Atherosclerotic heart disease of [place] coronary artery without angina pectoris (2) Aortic stenosis: Patient moderate Aortic stenosis. Once he recovered from the recent event may will consider (right heart catheterization and assessment of aortic valve through CATHETERIZATION or by transesophageal echo will decide regarding aortic valve replacement Status: Acute Code(s): I35.0 - Nonrheumatic aortic (valve) stenosis (3) Congestive heart failure with left ventricular systolic dysfunction: Appeared to be compensated. Continue current medication Status: Acute Code(s): I50.20 - Unspecified systolic (congestive) heart failure (4) Chronic renal disease: As per nephrology Status: Acute Code(s): N18.9 - Chronic kidney disease, unspecified (5) History of coronary artery bypass graft: Stable. 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
--- NOTE | 2019-08-27 20:11 | PM.PN ---
Subjective Subjective: Interval history: He is feeling all right, other than having slumped over while trying to get up from chair and walk to the bed with assistance of his . He slid down on the chair and denies hitting anything. Denies injuring his head. There is no pain in his legs or hips. He states he realizes that he should be more cautious , and request for assistance if he needs to move around. At home he uses a walker. Vitals/I&O/Wt Last Vital Signs Temp 98.8 F 08/27/19 16:00 Pulse 87 08/27/19 16:00 Resp 16 08/27/19 16:00 BP 172/95 08/27/19 16:00 Pulse Ox 96 08/27/19 16:00 08/27/19 08/27/19 08/27/19 06:59 14:59 22:59 Intake Total 240 / 240 Output Total 500 / 1550 750 / 750 600 / 1350 Balance -500 / -469.5 -510 / -510 -600 / -1110 Physical Exam Const: COMMON NORMALS: no apparent distress and oriented x3 OTHER: is sitting by the bedside. HENMT: COMMON NORMALS: oropharynx normal Neck/C-Spine: COMMON NORMALS: no JVD Resp: COMMON NORMALS: normal respiratory effort and clear to auscultation bilaterally AUSCULTATION: clear to auscultation bilaterally Cardio: COMMON NORMALS: no JVD, regular rhythm, S1 normal heart sound, S2 normal heart sound and no murmurs RHYTHM: regular rhythm HEART SOUNDS: S1 normal and S2 normal GI: COMMON NORMALS: normal to inspection, nondistended, normoactive bowel sounds, soft to palpation and non-tender PALPATION: Yes soft Extremity: COMMON NORMALS: no joint enlargement GENERAL: Yes edema (2-3+ lower extremity edema) Neuro: COMMON NORMALS: oriented x3 and moves all extremities Skin: COMMON NORMALS: no rashes or lesions noted GENERAL SKIN EXAM: no rashes or lesions noted Data : 08/27/19 06:02 08/27/19 06:02 Micro: Microbiology 08/25/19 13:20 Occult Blood (FIT) - Final Stool - Stool Aspirate A&P Assessment and plan (1) Congestive heart failure with left ventricular systolic dysfunction: Continue attempts at diuresis. Limited by renal function. Monitor I&O. Appreciate nephro recommendations regarding ARB. Appreciate cardiology recommendations. Status: Acute Code(s): I50.20 - Unspecified systolic (congestive) heart failure (2) COPD (chronic obstructive pulmonary disease): Concern for contribution to hypoxia from COPD, possible pulmonary fibrosis. Due to concern for underlying pneumonia continues empirically on Levaquin. Due to concern for exacerbation of COPD continues on prednisone course. T nebulization. Oxygen support. Status: Acute Code(s): J44.9 - Chronic obstructive pulmonary disease, unspecified (3) Anemia: Positive occult immunochemical test. Iron deficiency anemia. Continues on supplementation Reports past history of ibuprofen use, but not currently. On steroids. We will add PPI twice daily. Check H. pylori serology. Status: Acute Code(s): D64.9 - Anemia, unspecified (4) Macrocytosis: B12 and folate levels were normal Status: Acute Code(s): D75.89 - Other specified diseases of blood and blood-forming organs (5) Leukocytosis: Unchanged. Status: Acute Code(s): D72.829 - Elevated white blood cell count, unspecified (6) Acute kidney injury: Creatinine appears stabilized. With concern for cardiorenal syndrome per nephrology. With [employer] proteinuria. Appreciate renal recommendations. Status: Acute Code(s): N17.9 - Acute kidney failure, unspecified (7) Elevated troponin: Secondary to aortic stenosis, heart failure. Denies chest pain. Status: Acute Code(s): R79.89 - Other specified abnormal findings of blood chemistry Additional A&P Information Chronic kidney disease stage III Coronary artery disease with history of previous CABG. holding aspirin secondary to anemia Type 2 diabetes. Hypoglycemia resolved. Continues on sliding scale insulin. Will add 5 units Lantus nightly. GERD, continue Protonix BPH, continue Flomax Attestations Medical Necessity Statement*: Continue admission for management of acute anemia, CHF, acute on chronic kidney injury. Coding Level of Care Code Acute Glue Jointer Operator for Jennifer Tuttle Diagnoses Congestive heart failure with left ventricular systolic dysfunction I50.20 COPD (chronic obstructive pulmonary disease) J44.9 Anemia D64.9 Macrocytosis D75.89 Leukocytosis D72.829 Acute kidney injury N17.9 Elevated troponin R79.89
[2019-08-27] MEDS: pantoprazole DR 40 mg Tablet PO (21:03)
[2019-08-27] MEDS: insulin glargine 100 units/1 mL 5 UNIT SUBCUT (21:04)
[2019-08-27 21:21] LABS: H. Pylori IgG Antibody Negative (Negative)
[2019-08-27 21:24] LABS: Glucose Point of Care 352 mg/dL (70-110)
[2019-08-28] VITALS (10 sets, daily range): BP systolic 154–186; BP diastolic 80–94; PULSE 69–91; RESP 16–20; TEMP 36.3–37.2; O2SAT 94–99
[2019-08-28] MEDS: trazodone 100 mg Tablet PO ×2 (00:03→21:58)
[2019-08-28 03:43] LABS: Basophils % 0.1 %; Eosinophils % 0.1 %; Hematocrit 26.3 % (42.0-52.0); Hemoglobin 8.1 g/dL (11.7-16.6); Lymphocytes # 0.8 10^3/uL (0.8-4.8); Lymphocytes % 4.5 %; Mean Corpuscular HGB Conc 30.8 g/dL (30.0-36.0); Mean Corpuscular Hemoglobin 29.1 pg (28.0-34.0); Mean Corpuscular Volume 94.6 fL (80-94); Mean Platelet Volume 10.3 fL (7.4-10.4); Monocytes # 1.5 10^3/uL (0.2-0.9); Monocytes % 9.1 %; Neutrophils # 14.4 10^3/uL (1.8-7.7); Neutrophils % 84.9 %; Nucleated Red Blood Cells % 0 %; Platelet Count 298 10^3/cmm (130-400); Red Blood Count 2.78 10^6/uL (4.1-5.3); Red Cell Distribution Width 15.4 % (12.1-15.1)
[2019-08-28 04:16] LABS: Alanine Aminotransferase 21 U/L (0-41); Albumin Level 2.9 g/dL (3.5-5.2); Alkaline Phosphatase 82 IU/L (40-130); Anion Gap 18.6 (5-19); Aspartate Amino Transferase 18 U/L (0-40); Blood Urea Nitrogen 55 mg/dL (8-23); Carbon Dioxide 25 mmol/L (22-29); Chloride 98 mmol/L (98-107); Globulin 3.7 g/dL (1.3-4.6); Glucose 271 mg/dL (65-115); Magnesium 2.3 mg/dL (1.7-2.3); Phosphorus 4.3 mg/dL (2.5-4.5); Potassium 4.6 mmol/L (3.5-5.1); Sodium 137 mmol/L (136-145); Total Bilirubin 0.4 mg/dL (0.15-1.2); Total Protein 6.6 g/dL (6.6-8.7)
[2019-08-28 06:45] LABS: Glucose Point of Care 237 mg/dL (70-110)
--- NOTE | 2019-08-28 07:03 | PM.PN ---
Subjective Subjective: Interval history: feels better. less sob. still awollen and weak. Medications: Reviewed: Yes Medication Review Details: Current Medications Acetaminophen (Tylenol) 650 mg PO Q6H PRN PRN Reason: Mild/Mod Pain Or Temp >/= 101 Albuterol/Ipratropium (Duoneb) 3 ml INHALATION Q6H.RESPIRATORY PRN PRN Reason: SHORTNESS OF BREATH Last Admin: 08/27/19 01:58 Dose: 3 ml Documented by: Atorvastatin Calcium (Lipitor) 20 mg PO DAILY [facility] Last Admin: 08/27/19 08:16 Dose: 20 mg Documented by: Calcitriol (Rocaltrol) 0.25 mcg PO DAILY [facility] Last Admin: 08/27/19 08:17 Dose: 0.25 mcg Documented by: Dextrose (D50w) 25 ml IVP ONCE PRN; Protocol PRN Reason: hypoglycemia protocol Dextrose (D50w) 50 ml IVP PRN PRN; Protocol PRN Reason: hypoglycemia protocol Docusate Sodium (Colace) 100 mg PO BID [facility] Last Admin: 08/27/19 17:25 Dose: 100 mg Documented by: Furosemide (Lasix) 40 mg IVP Q12H [facility] Last Admin: 08/27/19 20:59 Dose: 40 mg Documented by: Glucagon (Glucagen) 1 mg IM ONCE PRN; Protocol PRN Reason: Adult Acute Hypoglycemia Prot. Dextrose (D5w) 500 mls @ 100 mls/hr IV ONCE PRN; Protocol PRN Reason: Adult Acute Hypoglycemia Prot Levofloxacin/Dextrose (Levaquin-D5w) 750 mg in 150 mls @ 150 mls/hr IV Q48H [facility]; Protocol Last Admin: 08/27/19 12:13 Dose: 150 mls/hr Documented by: Ferric Sodium Gluconate 125 mg (/ Sodium Chloride) 110 mls @ 110 mls/hr IV Q24H [facility] Stop: 09/02/19 08:59 Last Admin: 08/26/19 10:11 Dose: 110 mls/hr Documented by: Insulin Aspart (Novolog) 0 unit SUBCUT WM&BEDTIME [facility]; Protocol Last Admin: 08/27/19 21:32 Dose: 14 unit Documented by: Insulin Glargine (Lantus) 5 unit SUBCUT BEDTIME [facility] Last Admin: 08/27/19 21:04 Dose: 5 unit Documented by: Isosorbide Mononitrate (Imdur) 120 mg PO DAILY [facility] Last Admin: 08/27/19 08:15 Dose: 120 mg Documented by: Metoprolol Tartrate (Lopressor) 50 mg PO BID [facility] Last Admin: 08/27/19 17:24 Dose: 50 mg Documented by: Ondansetron HCl (Zofran) 4 mg IVP Q8H PRN PRN Reason: vomiting, or N/V if npo Pantoprazole Sodium (Protonix) 40 mg PO BID [facility] Last Admin: 08/27/19 21:03 Dose: 40 mg Documented by: Prednisone (Prednisone) 40 mg PO DAILY [facility] Last Admin: 08/27/19 08:16 Dose: 40 mg Documented by: Fluticasone/Salmeterol (Advair Diskus 100-50) 1 puff INHALATION BID.RESPIRATORY [facility] Last Admin: 08/27/19 20:17 Dose: 1 puff Documented by: Tamsulosin HCl (Flomax) 0.4 mg PO DAILY [facility] Last Admin: 08/27/19 08:16 Dose: 0.4 mg Documented by: Trazodone HCl (Desyrel) 100 mg PO BEDTIME PRN PRN Reason: INSOMNIA Last Admin: 08/28/19 00:03 Dose: 100 mg Documented by: Vitals/I&O/Wt Last Vital Signs Temp 97.4 F L 08/28/19 04:00 Pulse 77 08/28/19 04:00 Resp 18 08/28/19 04:00 BP 162/89 08/28/19 04:00 Pulse Ox 99 08/28/19 04:00 08/27/19 08/28/19 08/28/19 22:59 06:59 14:59 Intake Total 400 / 640 Output Total 750 / 1500 1650 / 3150 Balance -750 / -1260 -1250 / -2510 Physical Exam Narrative: EXAM NARRATIVE: swollen, comfortable sitting up vs noted - bp elevated heent- nc/at, eomi, anicteric neck supple lungs crackles b/l heart reg, +systolic murmur abd soft nt donnie, +BS ext b/l edema neuro- a,a, o x 3 Data : 08/28/19 03:00 08/28/19 03:00 A&P Additional A&P Information 79 yr old man obesity, distolic dysfunction, . 1. CKD stage 3b/ 4- b/l cr 1.8 from dm, htn, CRS 2. NORMAN - from CRS, progression of dm- w/ significant proteinuria. also has diastolic dysfunction and . once euvolemic- consider eval for TAVR -monitor on lasix -will add low dose ARB as pt has approx 6 gm proteinuria -needs glucose and BP control -consider SGLT-2 inhibitor as shown to be helpful for cardiac and renal protection in pts w/ dm, proteinuria, CAD -as renal fxn is progressively declining, recommend save the vein protocol 3. DM control- no metformin 4. htn- monitor w/ diuresis 5. CHF/ - per cardiology 6. anemia- iv iron, then consider epo -f/u speps/ upep 7. leukocytosis -on levaquin. also steroids is contribuiting to his leukocytosis 8. [id number]- pth 197- add calcitriol. monitor phos meds reviewed time spent 30 minutes Attestations Medical Necessity Statement*: per hospitalist and cardiology Time Spent in Patient Care: 16 - 35 minutes (>than 50% of time spent in counselling and/or direct pt care on unit). Coding Level of Care Code Acute Assistant Center Manager for Jennifer Tuttle
[2019-08-28] MEDS: predniSONE 20 mg Tablet 40 MG PO (08:41)
[2019-08-28] MEDS: losartan 50 mg Tablet 25 MG PO (08:41)
[2019-08-28] MEDS: calcitriol 0.25 mcg Capsule PO (08:42)
[2019-08-28] MEDS: pantoprazole DR 40 mg Tablet PO ×2 (08:42→17:04)
[2019-08-28] MEDS: docusate sodium 100 mg Capsule PO ×2 (08:42→17:04)
[2019-08-28] MEDS: isosorbide mononitrate ER 60 mg Tablet 120 MG PO (08:42)
[2019-08-28] MEDS: atorvastatin 40 mg Tablet 20 MG PO (08:42)
[2019-08-28] MEDS: metoprolol tartrate 50 mg Tablet PO ×2 (08:43→17:04)
[2019-08-28] MEDS: tamsulosin 0.4 mg Capsule PO (08:43)
[2019-08-28] MEDS: ipratropium-albuterol 3 mL Neb INHALATION (09:00)
[2019-08-28] MEDS: FUROsemide 10 mg/mL SDV 4mL 40 MG IVP ×2 (09:25→21:58)
[2019-08-28 10:14] LABS: Glucose Point of Care 249 mg/dL (70-110)
--- NOTE | 2019-08-28 14:52 | PC.CHAP ---
Pastoral Care Encounter/Spiritual Assessment Type of Contact [] Declined record clerk salesperson visit [] Patient/Family/Request visit [] Outpatient visit [] Follow-up visit [] Physician referral [] Code/Alert [x] Routine visit [] Staff referral [] Actively dying [] Patient sleeping [] Family support [] [] Out of room [] Palliative care [] [] Receiving care in room [] Pre-surgical visit [] Trauma [] Long length of stay [] ICU visit [] Other: Relational/Emotional Strength [x] Patient feels connected with others/family/visitors/staff [] Distress [] Loneliness/isolation [] Abandonment Spirituality of Patient [x] Person of [place] [] Attends Religious of their [place] [x] Believes in Prayer [] Reads Bible or Pentecostal materials [] There are Spiritual issues to be addressed Gas Turbine Powerplant Mechanic Interventions [] Prayer [x] Active listening [x] Non-anxious presence [x] Spiritual/emotional support [] Crisis/trauma care [] Spiritual counseling [] Bereavement support [] Provided bereavement packet [] Provided Bible/devotional materials [] Provided toy/stuffed animal, coloring book to patient or family member [] Provided Communion [] Anointing/Bland [] Salvation [x] Completed spiritual assessment [] Other: Impact on Illness or Injury [] Angry [] Fearful [] Anxious [] Often cries [z] Exhaustion [z] Unable to work [z] Unable to attend quaker [] Unable to walk/stand [] Unable to read [] Unable to drive [] Unable to eat/drink [] Unable to sleep [] Unable to be with family [] Patient intubated [] Other: Summary Patient is somewhat anxious because of not being able to attend worship and is always tired. Time spent with patient 5 min
[2019-08-28 15:59] LABS: Glucose Point of Care 245 mg/dL (70-110)
--- NOTE | 2019-08-28 18:52 | PM.PN ---
Subjective Subjective: Interval history: Continues to breathe better. Medications: Reviewed: Yes Medication Review Details: Current Medications Acetaminophen (Tylenol) 650 mg PO Q6H PRN PRN Reason: Mild/Mod Pain Or Temp >/= 101 Albuterol/Ipratropium (Duoneb) 3 ml INHALATION Q6H.RESPIRATORY PRN PRN Reason: SHORTNESS OF BREATH Last Admin: 08/27/19 01:58 Dose: 3 ml Documented by: Atorvastatin Calcium (Lipitor) 20 mg PO DAILY [facility] Last Admin: 08/27/19 08:16 Dose: 20 mg Documented by: Calcitriol (Rocaltrol) 0.25 mcg PO DAILY [facility] Last Admin: 08/27/19 08:17 Dose: 0.25 mcg Documented by: Dextrose (D50w) 25 ml IVP ONCE PRN; Protocol PRN Reason: hypoglycemia protocol Dextrose (D50w) 50 ml IVP PRN PRN; Protocol PRN Reason: hypoglycemia protocol Docusate Sodium (Colace) 100 mg PO BID [facility] Last Admin: 08/27/19 17:25 Dose: 100 mg Documented by: Furosemide (Lasix) 40 mg IVP Q12H [facility] Last Admin: 08/27/19 20:59 Dose: 40 mg Documented by: Glucagon (Glucagen) 1 mg IM ONCE PRN; Protocol PRN Reason: Adult Acute Hypoglycemia Prot. Dextrose (D5w) 500 mls @ 100 mls/hr IV ONCE PRN; Protocol PRN Reason: Adult Acute Hypoglycemia Prot Levofloxacin/Dextrose (Levaquin-D5w) 750 mg in 150 mls @ 150 mls/hr IV Q48H [facility]; Protocol Last Admin: 08/27/19 12:13 Dose: 150 mls/hr Documented by: Ferric Sodium Gluconate 125 mg (/ Sodium Chloride) 110 mls @ 110 mls/hr IV Q24H [facility] Stop: 09/02/19 08:59 Last Admin: 08/26/19 10:11 Dose: 110 mls/hr Documented by: Insulin Aspart (Novolog) 0 unit SUBCUT WM&BEDTIME [facility]; Protocol Last Admin: 08/27/19 21:32 Dose: 14 unit Documented by: Insulin Glargine (Lantus) 5 unit SUBCUT BEDTIME [facility] Last Admin: 08/27/19 21:04 Dose: 5 unit Documented by: Isosorbide Mononitrate (Imdur) 120 mg PO DAILY [facility] Last Admin: 08/27/19 08:15 Dose: 120 mg Documented by: Metoprolol Tartrate (Lopressor) 50 mg PO BID [facility] Last Admin: 08/27/19 17:24 Dose: 50 mg Documented by: Ondansetron HCl (Zofran) 4 mg IVP Q8H PRN PRN Reason: vomiting, or N/V if npo Pantoprazole Sodium (Protonix) 40 mg PO BID [facility] Last Admin: 08/27/19 21:03 Dose: 40 mg Documented by: Prednisone (Prednisone) 40 mg PO DAILY [facility] Last Admin: 08/27/19 08:16 Dose: 40 mg Documented by: Fluticasone/Salmeterol (Advair Diskus 100-50) 1 puff INHALATION BID.RESPIRATORY [facility] Last Admin: 08/27/19 20:17 Dose: 1 puff Documented by: Tamsulosin HCl (Flomax) 0.4 mg PO DAILY [facility] Last Admin: 08/27/19 08:16 Dose: 0.4 mg Documented by: Trazodone HCl (Desyrel) 100 mg PO BEDTIME PRN PRN Reason: INSOMNIA Last Admin: 08/28/19 00:03 Dose: 100 mg Documented by: Vitals/I&O/Wt Last Vital Signs Temp 98.4 F 08/28/19 15:15 Pulse 79 08/28/19 15:15 Resp 20 H 08/28/19 15:15 BP 154/80 08/28/19 15:15 Pulse Ox 98 08/28/19 15:15 08/28/19 08/28/19 08/28/19 06:59 14:59 22:59 Intake Total 400 / 640 760 / 760 120 / 880 Output Total 1650 / 3150 1100 / 1100 350 / 1450 Balance -1250 / -2510 -340 / -340 -230 / -570 Physical Exam Narrative: EXAM NARRATIVE: GENERAL: Patient is alert, awake and oriented x3. NECK: No jugular vein distension. HEENT: No cyanosis. No icterus. No pallor. HEART: Regular S1 and S2. No murmur, rub or gallop. LUNGS: Clear to auscultate bilaterally. ABDOMEN: Soft, nontender and nondistended. Positive bowel sounds. No guarding, rebound or tenderness. CENTRAL NERVOUS SYSTEM: Grossly nonfocal. EXTREMITIES: Lower extremities without edema bilaterally. Data : 08/28/19 03:00 08/28/19 03:00 A&P Assessment and plan (1) Coronary artery disease: Stable from a coronary disease perspective. Continue medicine Status: Acute Code(s): I25.10 - Atherosclerotic heart disease of [place] coronary artery without angina pectoris (2) Aortic stenosis: Patient moderate Aortic stenosis. Once he recovered from the recent event may will consider (right heart catheterization and assessment of aortic valve through CATHETERIZATION or by transesophageal echo will decide regarding aortic valve replacement Status: Acute Code(s): I35.0 - Nonrheumatic aortic (valve) stenosis (3) Congestive heart failure with left ventricular systolic dysfunction: Appeared to be compensated. Continue current medication Status: Acute Code(s): I50.20 - Unspecified systolic (congestive) heart failure (4) Chronic renal disease: As per nephrology Status: Acute Code(s): N18.9 - Chronic kidney disease, unspecified (5) History of coronary artery bypass graft: Stable. Continue medicine Status: Acute Code(s): Z95.1 - Presence of aortocoronary bypass graft (6) Acute kidney injury: As per nephrology Status: Acute Code(s): N17.9 - Acute kidney failure, unspecified Additional A&P Information He has been placed back on Lasix 40 mg IV twice daily. We will see what this does for the ensuing 24 to 48 hours. No other changes were made. Attestations Medical Necessity Statement*: Requires continuation hospitalization for above defined Care. Coding Level of Care Code Established Pt Acute Laborer Egg Producing Farm for Jennifer Tuttle Patient Type Established History Expanded Problem Focused Exam Expanded Problem Focused Medical Decision Making Moderate Complexity Diagnoses Coronary artery disease I25.10 Aortic stenosis I35.0 Congestive heart failure with left ventricular systolic dysfunction I50.20 Chronic renal disease N18.9 History of coronary artery bypass graft Z95.1 Acute kidney injury N17.9
--- NOTE | 2019-08-28 20:25 | PM.PN ---
Subjective Subjective: Interval history: He is feeling about the same. Denies changes in his breathing, although has been having slightly more cough. Breathing is still better compared to his admission. Denies any abdominal pain or discomfort. Denies any heartburn. Vitals/I&O/Wt Last Vital Signs Temp 98.4 F 08/28/19 15:15 Pulse 79 08/28/19 15:15 Resp 20 H 08/28/19 15:15 BP 154/80 08/28/19 15:15 Pulse Ox 98 08/28/19 15:15 08/28/19 08/28/19 08/28/19 06:59 14:59 22:59 Intake Total 400 / 640 760 / 760 120 / 880 Output Total 1650 / 3150 1100 / 1100 350 / 1450 Balance -1250 / -2510 -340 / -340 -230 / -570 Physical Exam Const: COMMON NORMALS: no apparent distress and oriented x3 OTHER: Pleasant, conversant, in good spirits. HENMT: COMMON NORMALS: oropharynx normal Neck/C-Spine: COMMON NORMALS: no JVD Resp: COMMON NORMALS: normal respiratory effort and clear to auscultation bilaterally AUSCULTATION: clear to auscultation bilaterally Cardio: COMMON NORMALS: no JVD, regular rhythm, S1 normal heart sound, S2 normal heart sound and no murmurs RHYTHM: regular rhythm HEART SOUNDS: S1 normal and S2 normal GI: COMMON NORMALS: normal to inspection, nondistended, normoactive bowel sounds, soft to palpation and non-tender PALPATION: Yes soft Extremity: COMMON NORMALS: no joint enlargement GENERAL: Yes edema (2-3+ lower extremity edema) Neuro: COMMON NORMALS: oriented x3 and moves all extremities Skin: COMMON NORMALS: no rashes or lesions noted GENERAL SKIN EXAM: no rashes or lesions noted Data : 08/28/19 03:00 08/28/19 03:00 A&P Assessment and plan (1) Congestive heart failure with left ventricular systolic dysfunction: Continue attempts at diuresis. Lasix dose increased to 40 mg twice daily by cardiology. Limited by renal function. Monitor I&O. Started on ARB. Status: Acute Code(s): I50.20 - Unspecified systolic (congestive) heart failure (2) COPD (chronic obstructive pulmonary disease): Concern for contribution to hypoxia from COPD, possible pulmonary fibrosis. Due to concern for underlying pneumonia continues empirically on Levaquin. Due to concern for exacerbation of COPD continues on prednisone course. We will try to taper down prednisone as he has been doing better overall, and with positive Hemoccult may be having some GI blood loss. Decrease prednisone to 20 mg currently. Nebulization. Oxygen support. Status: Acute Code(s): J44.9 - Chronic obstructive pulmonary disease, unspecified (3) Anemia: Positive occult immunochemical test. Iron deficiency anemia. Continues on supplementation Reports past history of ibuprofen use, but not currently. Attempt to taper down prednisone. PPI twice daily. Check H. pylori serology. Discussed with him if persistent/recurrent anemia or if he develops symptoms of dyspepsia may benefit from follow-up assessment by EGD. Status: Acute Code(s): D64.9 - Anemia, unspecified (4) Macrocytosis: B12 and folate levels were normal Status: Acute Code(s): D75.89 - Other specified diseases of blood and blood-forming organs (5) Leukocytosis: Unchanged. Status: Acute Code(s): D72.829 - Elevated white blood cell count, unspecified (6) Acute kidney injury: Creatinine appears stabilized. With concern for cardiorenal syndrome per nephrology. With significant proteinuria. Appreciate renal recommendations. He is started on ARB. Status: Acute Code(s): N17.9 - Acute kidney failure, unspecified (7) Elevated troponin: Secondary to aortic stenosis, heart failure. Denies chest pain. Status: Acute Code(s): R79.89 - Other specified abnormal findings of blood chemistry Additional A&P Information HTN: He continues on tamsulosin, metoprolol, Imdur. Losartan was added with improvement in blood pressure. Chronic kidney disease stage III Coronary artery disease with history of previous CABG. Holding aspirin secondary to anemia Type 2 diabetes. Hypoglycemia resolved. Continues on sliding scale insulin. Increase to 10 units Lantus nightly. GERD, continue Protonix BPH, continue Flomax Attestations Medical Necessity Statement*: Continue admission for assessment of CHF, NORMAN, anemia, COPD exacerbation, optimization of management of HTN. Coding Level of Care Code Acute Tufting Supervisor for [facility] Fwd Diagnoses Congestive heart failure with left ventricular systolic dysfunction I50.20 COPD (chronic obstructive pulmonary disease) J44.9 Anemia D64.9 Macrocytosis D75.89 Leukocytosis D72.829 Acute kidney injury N17.9 Elevated troponin R79.89
[2019-08-28 21:34] LABS: Glucose Point of Care 407 mg/dL (70-110)
[2019-08-28] MEDS: insulin glargine 100 units/1 mL 10 UNIT SUBCUT (22:00)
[2019-08-29] VITALS (10 sets, daily range): BP systolic 137–176; BP diastolic 70–93; PULSE 66–99; RESP 14–22; TEMP 36.3–36.7; O2SAT 97–99
[2019-08-29 03:43] LABS: Basophils % 0.1 %; Hematocrit 27.9 % (42.0-52.0); Hemoglobin 8.6 g/dL (11.7-16.6); Lymphocytes # 0.6 10^3/uL (0.8-4.8); Lymphocytes % 3.6 %; Mean Corpuscular HGB Conc 30.8 g/dL (30.0-36.0); Mean Corpuscular Volume 93.9 fL (80-94); Mean Platelet Volume 10.2 fL (7.4-10.4); Monocytes # 1.3 10^3/uL (0.2-0.9); Monocytes % 7.5 %; Neutrophils # 14.8 10^3/uL (1.8-7.7); Neutrophils % 87.6 %; Nucleated Red Blood Cells % 0 %; Platelet Count 291 10^3/cmm (130-400); Red Blood Count 2.97 10^6/uL (4.1-5.3); Red Cell Distribution Width 15.5 % (12.1-15.1); White Blood Count 16.9 10^3/uL (4.0-10.0)
[2019-08-29 04:02] LABS: Alanine Aminotransferase 24 U/L (0-41); Alkaline Phosphatase 83 IU/L (40-130); Anion Gap 16.6 (5-19); Aspartate Amino Transferase 17 U/L (0-40); Blood Urea Nitrogen 56 mg/dL (8-23); Carbon Dioxide 27 mmol/L (22-29); Chloride 99 mmol/L (98-107); Globulin 3.8 g/dL (1.3-4.6); Glucose 301 mg/dL (65-115); Magnesium 2.4 mg/dL (1.7-2.3); Phosphorus 4.8 mg/dL (2.5-4.5); Potassium 4.6 mmol/L (3.5-5.1); Sodium 138 mmol/L (136-145); Total Bilirubin 0.4 mg/dL (0.15-1.2); Total Protein 6.8 g/dL (6.6-8.7)
[2019-08-29 06:43] LABS: Glucose Point of Care 237 mg/dL (70-110)
[2019-08-29] MEDS: losartan 50 mg Tablet 25 MG PO (08:00)
[2019-08-29] MEDS: tamsulosin 0.4 mg Capsule PO (08:00)
[2019-08-29] MEDS: pantoprazole DR 40 mg Tablet PO ×2 (08:00→17:37)
[2019-08-29] MEDS: metoprolol tartrate 50 mg Tablet PO ×2 (08:01→17:37)
[2019-08-29] MEDS: docusate sodium 100 mg Capsule PO ×2 (08:01→17:37)
[2019-08-29] MEDS: isosorbide mononitrate ER 60 mg Tablet 120 MG PO (08:01)
[2019-08-29] MEDS: predniSONE 20 mg Tablet PO (08:01)
[2019-08-29] MEDS: FUROsemide 10 mg/mL SDV 4mL 40 MG IVP ×2 (08:03→21:01)
[2019-08-29] MEDS: calcitriol 0.25 mcg Capsule PO (08:07)
[2019-08-29] MEDS: atorvastatin 40 mg Tablet 20 MG PO (08:07)
--- NOTE | 2019-08-29 08:50 | P.PN_ITS ---
Subjective Subjective: Interval history: feels better. but still swollen. no n/v/f/c/beckwith/d Medications: Reviewed: Yes Medication Review Details: Current Medications Acetaminophen (Tylenol) 650 mg PO Q6H PRN PRN Reason: Mild/Mod Pain Or Temp >/= 101 Albuterol/Ipratropium (Duoneb) 3 ml INHALATION Q6H.RESPIRATORY PRN PRN Reason: SHORTNESS OF BREATH Last Admin: 08/28/19 09:00 Dose: 3 ml Documented by: Atorvastatin Calcium (Lipitor) 20 mg PO DAILY [facility] Last Admin: 08/29/19 08:07 Dose: 20 mg Documented by: Calcitriol (Rocaltrol) 0.25 mcg PO DAILY [facility] Last Admin: 08/29/19 08:07 Dose: 0.25 mcg Documented by: Dextrose (D50w) 25 ml IVP ONCE PRN; Protocol PRN Reason: hypoglycemia protocol Dextrose (D50w) 50 ml IVP PRN PRN; Protocol PRN Reason: hypoglycemia protocol Docusate Sodium (Colace) 100 mg PO BID [facility] Last Admin: 08/29/19 08:01 Dose: 100 mg Documented by: Furosemide (Lasix) 40 mg IVP Q12H [facility] Last Admin: 08/29/19 08:03 Dose: 40 mg Documented by: Glucagon (Glucagen) 1 mg IM ONCE PRN; Protocol PRN Reason: Adult Acute Hypoglycemia Prot. Dextrose (D5w) 500 mls @ 100 mls/hr IV ONCE PRN; Protocol PRN Reason: Adult Acute Hypoglycemia Prot Levofloxacin/Dextrose (Levaquin-D5w) 750 mg in 150 mls @ 150 mls/hr IV Q48H [facility]; Protocol Last Admin: 08/27/19 12:13 Dose: 150 mls/hr Documented by: Ferric Sodium Gluconate 125 mg (/ Sodium Chloride) 110 mls @ 110 mls/hr IV Q24H [facility] Stop: 09/02/19 08:59 Last Admin: 08/29/19 08:08 Dose: 110 mls/hr Documented by: Insulin Aspart (Novolog) 0 unit SUBCUT WM&BEDTIME [facility]; Protocol Last Admin: 08/29/19 07:59 Dose: 8 unit Documented by: Insulin Glargine (Lantus) 10 unit SUBCUT BEDTIME [facility] Last Admin: 08/28/19 22:00 Dose: 10 unit Documented by: Isosorbide Mononitrate (Imdur) 120 mg PO DAILY [facility] Last Admin: 08/29/19 08:01 Dose: 120 mg Documented by: Losartan Potassium (Cozaar) 25 mg PO DAILY [facility] Last Admin: 08/29/19 08:00 Dose: 25 mg Documented by: Metoprolol Tartrate (Lopressor) 50 mg PO BID [facility] Last Admin: 08/29/19 08:01 Dose: 50 mg Documented by: Ondansetron HCl (Zofran) 4 mg IVP Q8H PRN PRN Reason: vomiting, or N/V if npo Pantoprazole Sodium (Protonix) 40 mg PO BID [facility] Last Admin: 08/29/19 08:00 Dose: 40 mg Documented by: Prednisone (Prednisone) 20 mg PO DAILY [facility] Last Admin: 08/29/19 08:01 Dose: 20 mg Documented by: Fluticasone/Salmeterol (Advair Diskus 100-50) 1 puff INHALATION BID.RESPIRATORY [facility] Last Admin: 08/28/19 21:23 Dose: 1 puff Documented by: Tamsulosin HCl (Flomax) 0.4 mg PO DAILY [facility] Last Admin: 08/29/19 08:00 Dose: 0.4 mg Documented by: Trazodone HCl (Desyrel) 100 mg PO BEDTIME PRN PRN Reason: INSOMNIA Last Admin: 08/28/19 21:58 Dose: 100 mg Documented by: Vitals/I&O/Wt Last Vital Signs Temp 98.1 F 08/29/19 08:00 Pulse 79 08/29/19 08:00 Resp 16 08/29/19 08:00 BP 161/82 08/29/19 08:00 Pulse Ox 98 08/29/19 08:00 08/28/19 08/29/19 08/29/19 22:59 06:59 14:59 Intake Total 120 / 990 480 / 480 Output Total 700 / 1800 550 / 2350 Balance -580 / -810 -550 / -1360 480 / 480 Physical Exam Narrative: EXAM NARRATIVE: swollen, comfortable sitting up vs noted - bp elevated heent- nc/at, eomi, anicteric neck supple lungs crackles b/l heart reg, +systolic murmur abd soft nt donnie, +BS ext b/l edema neuro- a,a, o x 3 Data : 08/29/19 03:15 08/29/19 03:15 A&P Additional A&P Information 79 yr old man obesity, distolic dysfunction, . 1. CKD stage 3b/ 4- b/l cr 1.8 from dm, htn, CRS 2. NORMAN - from CRS, progression of dm- w/ significant proteinuria. also has diastolic dysfunction and . once euvolemic- consider eval for TAVR -monitor on lasix- add zaroxlyn 5 mg daily. consider inc lasix as per cardiology and monitor uop, weights, and chemistries -will add low dose ARB as pt has approx 6 gm proteinuria -needs glucose and BP control -consider SGLT-2 inhibitor as shown to be helpful for cardiac and renal protection in pts w/ dm, proteinuria, CAD -as renal fxn is progressively declining, recommend save the vein protocol 3. DM control- no metformin 4. htn- monitor w/ diuresis and arb 5. CHF/ - per cardiology 6. anemia- iv iron, then consider epo -f/u speps/ upep 7. leukocytosis -on levaquin. also steroids is contributing to his leukocytosis 8. [id number]- pth 197- calcitriol. monitor phos meds reviewed Attestations Medical Necessity Statement*: chf, valvular heart disease,renal dysfunction, leukocytosis Time Spent in Patient Care: 16 - 35 minutes (>than 50% of time spent in counselling and/or direct pt care on unit) . Coding Level of Care Code Acute Service And Repair Supervisor for Jennifer Tuttle
[2019-08-29] MEDS: metOLazone 5 MG Tablet PO (09:36)
--- NOTE | 2019-08-29 09:45 | PC.SOCIAL ---
IMM Updated Page 2 of IMM updated and given to patient. Initialed, dated, and timed and placed back in chart.
[2019-08-29 10:22] LABS: Glucose Point of Care 321 mg/dL (70-110)
[2019-08-29] MEDS: levofloxacin-dextrose 5 % 750 MG/150 ML PREMIX 150 MG IV (10:48)
--- NOTE | 2019-08-29 15:17 | PM.PN ---
Subjective Subjective: Interval history: He reports that his breathing is doing well. Does have persistent swelling in his legs. Vitals/I&O/Wt Last Vital Signs Temp 97.9 F 08/29/19 11:56 Pulse 66 08/29/19 11:56 Resp 14 08/29/19 11:56 BP 159/86 08/29/19 11:56 Pulse Ox 99 08/29/19 11:56 08/29/19 08/29/19 08/29/19 06:59 14:59 22:59 Intake Total 720 / 720 Output Total 550 / 2350 1300 / 1300 Balance -550 / -1360 -580 / -580 Physical Exam Const: COMMON NORMALS: no apparent distress and oriented x3 OTHER: Pleasant, conversant, in good spirits. HENMT: COMMON NORMALS: oropharynx normal Neck/C-Spine: COMMON NORMALS: no JVD Resp: COMMON NORMALS: normal respiratory effort and clear to auscultation bilaterally AUSCULTATION: clear to auscultation bilaterally Cardio: COMMON NORMALS: no JVD, regular rhythm, S1 normal heart sound, S2 normal heart sound and no murmurs RHYTHM: regular rhythm HEART SOUNDS: S1 normal and S2 normal GI: COMMON NORMALS: normal to inspection, nondistended, normoactive bowel sounds, soft to palpation and non-tender PALPATION: Yes soft Extremity: COMMON NORMALS: no joint enlargement GENERAL: Yes edema (2-3+ lower extremity edema persistent) Neuro: COMMON NORMALS: oriented x3 and moves all extremities Skin: COMMON NORMALS: no rashes or lesions noted GENERAL SKIN EXAM: no rashes or lesions noted Data : 08/29/19 03:15 08/29/19 03:15 A&P Assessment and plan (1) Anemia: Positive occult immunochemical test. But anemia appears to have stabilized. Attempting to wean off prednisone. Iron deficiency anemia. Continues on supplementation Reports past history of ibuprofen use, but not currently. PPI twice daily. H. pylori serology negative. Discussed with him if persistent/recurrent anemia or if he develops symptoms of dyspepsia may benefit from follow-up assessment by EGD. Status: Acute Code(s): D64.9 - Anemia, unspecified (2) Congestive heart failure with left ventricular systolic dysfunction: Continue attempts at diuresis. Lasix dose increased to 40 mg twice daily. Limited by renal function. Monitor I&O. Started on ARB. Mobilize. Status: Acute Code(s): I50.20 - Unspecified systolic (congestive) heart failure (3) COPD (chronic obstructive pulmonary disease): This is improving. We will decrease his prednisone further down to 10 mg. Concern for contribution to hypoxia from COPD, possible pulmonary fibrosis. Due to concern for underlying pneumonia continues empirically on Levaquin. Due to concern for exacerbation of COPD continues on prednisone course. We will try to taper down prednisone as he has been doing better overall, and with positive Hemoccult may be having some GI blood loss. Nebulization. Oxygen support. Status: Acute Code(s): J44.9 - Chronic obstructive pulmonary disease, unspecified (4) Macrocytosis: B12 and folate levels were normal Status: Acute Code(s): D75.89 - Other specified diseases of blood and blood-forming organs (5) Leukocytosis: Unchanged. Status: Acute Code(s): D72.829 - Elevated white blood cell count, unspecified (6) Acute kidney injury: Creatinine appears stabilized. With concern for cardiorenal syndrome per nephrology. With significant proteinuria. Appreciate renal recommendations. He is started on ARB. Cardiology discussed arrangements regarding additional work-up for management of aortic stenosis. Status: Acute Code(s): N17.9 - Acute kidney failure, unspecified (7) Elevated troponin: Secondary to aortic stenosis, heart failure. Denies chest pain. Status: Acute Code(s): R79.89 - Other specified abnormal findings of blood chemistry Additional A&P Information HTN: Blood pressure is better. Not yet at goal. He continues on tamsulosin, metoprolol, Imdur. Losartan. Chronic kidney disease stage III Coronary artery disease with history of previous CABG. Holding aspirin secondary to anemia Type 2 diabetes. Hypoglycemia resolved. Continues on sliding scale insulin. Increase to 15 units Lantus nightly. GERD, continue Protonix BPH, continue Flomax Attestations Medical Necessity Statement*: Continue admission for management of CHF, work-up and management of acute blood loss anemia, tapering off steroids for COPD. Coding Level of Care Code Acute Supervisor [employer] for Jennifer Fwchapo Diagnoses Anemia D64.9 Congestive heart failure with left ventricular systolic dysfunction I50.20 COPD (chronic obstructive pulmonary disease) J44.9 Macrocytosis D75.89 Leukocytosis D72.829 Acute kidney injury N17.9 Elevated troponin R79.89
[2019-08-29 16:23] LABS: Glucose Point of Care 289 mg/dL (70-110)
[2019-08-29] MEDS: trazodone 100 mg Tablet PO (21:08)
[2019-08-29 21:25] LABS: Glucose Point of Care 328 mg/dL (70-110)
[2019-08-29] MEDS: insulin glargine 100 units/1 mL 15 UNIT SUBCUT (22:07)
--- NOTE | 2019-08-29 22:42 | P.PN_ITS ---
Subjective Subjective: Interval history: Patient sees she is feeling better Medications: Reviewed: Yes Medication Review Details: Current Medications Acetaminophen (Tylenol) 650 mg PO Q6H PRN PRN Reason: Mild/Mod Pain Or Temp >/= 101 Albuterol/Ipratropium (Duoneb) 3 ml INHALATION Q6H.RESPIRATORY PRN PRN Reason: SHORTNESS OF BREATH Last Admin: 08/28/19 09:00 Dose: 3 ml Documented by: Atorvastatin Calcium (Lipitor) 20 mg PO DAILY [facility] Last Admin: 08/29/19 08:07 Dose: 20 mg Documented by: Calcitriol (Rocaltrol) 0.25 mcg PO DAILY [facility] Last Admin: 08/29/19 08:07 Dose: 0.25 mcg Documented by: Dextrose (D50w) 25 ml IVP ONCE PRN; Protocol PRN Reason: hypoglycemia protocol Dextrose (D50w) 50 ml IVP PRN PRN; Protocol PRN Reason: hypoglycemia protocol Docusate Sodium (Colace) 100 mg PO BID [facility] Last Admin: 08/29/19 08:01 Dose: 100 mg Documented by: Furosemide (Lasix) 40 mg IVP Q12H [facility] Last Admin: 08/29/19 08:03 Dose: 40 mg Documented by: Glucagon (Glucagen) 1 mg IM ONCE PRN; Protocol PRN Reason: Adult Acute Hypoglycemia Prot. Dextrose (D5w) 500 mls @ 100 mls/hr IV ONCE PRN; Protocol PRN Reason: Adult Acute Hypoglycemia Prot Levofloxacin/Dextrose (Levaquin-D5w) 750 mg in 150 mls @ 150 mls/hr IV Q48H [facility]; Protocol Last Admin: 08/27/19 12:13 Dose: 150 mls/hr Documented by: Ferric Sodium Gluconate 125 mg (/ Sodium Chloride) 110 mls @ 110 mls/hr IV Q24H [facility] Stop: 09/02/19 08:59 Last Admin: 08/29/19 08:08 Dose: 110 mls/hr Documented by: Insulin Aspart (Novolog) 0 unit SUBCUT WM&BEDTIME [facility]; Protocol Last Admin: 08/29/19 07:59 Dose: 8 unit Documented by: Insulin Glargine (Lantus) 10 unit SUBCUT BEDTIME [facility] Last Admin: 08/28/19 22:00 Dose: 10 unit Documented by: Isosorbide Mononitrate (Imdur) 120 mg PO DAILY [facility] Last Admin: 08/29/19 08:01 Dose: 120 mg Documented by: Losartan Potassium (Cozaar) 25 mg PO DAILY [facility] Last Admin: 08/29/19 08:00 Dose: 25 mg Documented by: Metoprolol Tartrate (Lopressor) 50 mg PO BID [facility] Last Admin: 08/29/19 08:01 Dose: 50 mg Documented by: Ondansetron HCl (Zofran) 4 mg IVP Q8H PRN PRN Reason: vomiting, or N/V if npo Pantoprazole Sodium (Protonix) 40 mg PO BID [facility] Last Admin: 08/29/19 08:00 Dose: 40 mg Documented by: Prednisone (Prednisone) 20 mg PO DAILY [facility] Last Admin: 08/29/19 08:01 Dose: 20 mg Documented by: Fluticasone/Salmeterol (Advair Diskus 100-50) 1 puff INHALATION BID.RESPIRATORY [facility] Last Admin: 08/28/19 21:23 Dose: 1 puff Documented by: Tamsulosin HCl (Flomax) 0.4 mg PO DAILY [facility] Last Admin: 08/29/19 08:00 Dose: 0.4 mg Documented by: Trazodone HCl (Desyrel) 100 mg PO BEDTIME PRN PRN Reason: INSOMNIA Last Admin: 08/28/19 21:58 Dose: 100 mg Documented by: Vitals/I&O/Wt Last Vital Signs Temp 97.7 F 08/29/19 19:38 Pulse 66 08/29/19 20:19 Resp 18 08/29/19 20:19 BP 158/75 08/29/19 19:38 Pulse Ox 99 08/29/19 20:19 08/29/19 08/29/19 08/29/19 06:59 14:59 22:59 Intake Total 720 / 720 360 / 1080 Output Total 550 / 2350 1300 / 1300 1075 / 2375 Balance -550 / -1360 -580 / -580 -715 / -1295 Physical Exam Narrative: EXAM NARRATIVE: GENERAL: Patient is alert, awake and oriented x3. NECK: No jugular vein distension. HEENT: No cyanosis. No icterus. No pallor. HEART: Regular S1 and S2. No murmur, rub or gallop. LUNGS: Clear to auscultate bilaterally. ABDOMEN: Soft, nontender and nondistended. Positive bowel sounds. No guarding, rebound or tenderness. CENTRAL NERVOUS SYSTEM: Grossly nonfocal. EXTREMITIES: Lower extremities without edema bilaterally. Data : 08/29/19 03:15 08/29/19 03:15 A&P Assessment and plan (1) Coronary artery disease: Stable from a coronary disease perspective. Continue Current management Status: Acute Code(s): I25.10 - Atherosclerotic heart disease of [place] coronary artery without angina pectoris (2) Aortic stenosis: Patient moderate Aortic stenosis. Once he recovered from the recent event may will consider (right heart catheterization and assessment of aortic valve through CATHETERIZATION or by transesophageal echo will decide regarding aortic valve replacement Status: Acute Code(s): I35.0 - Nonrheumatic aortic (valve) stenosis (3) Congestive heart failure with left ventricular systolic dysfunction: Appeared to be compensated. Continue current medication Status: Acute Code(s): I50.20 - Unspecified systolic (congestive) heart failure (4) Chronic renal disease: As per nephrology Status: Acute Code(s): N18.9 - Chronic kidney disease, unspecified (5) History of coronary artery bypass graft: Stable. Continue medicine Status: Acute Code(s): Z95.1 - Presence of aortocoronary bypass graft (6) Acute kidney injury: As per nephrology Status: Acute Code(s): N17.9 - Acute kidney failure, unspecified Additional A&P Information He has been placed back on Lasix 40 mg IV twice daily. We will see what this does for the ensuing 24 to 48 hours. No other changes were made. Attestations Medical Necessity Statement*: Patient requires continuation hospitalization for above defined care. Coding Level of Care Code Established Pt Acute Marketing Trainee for Jennifer Fwd Patient Type Established History Expanded Problem Focused Exam Expanded Problem Focused Medical Decision Making Moderate Complexity Diagnoses Coronary artery disease I25.10 Aortic stenosis I35.0 Congestive heart failure with left ventricular systolic dysfunction I50.20 Chronic renal disease N18.9 History of coronary artery bypass graft Z95.1 Acute kidney injury N17.9
[2019-08-30] VITALS (10 sets, daily range): BP systolic 134–175; BP diastolic 58–95; PULSE 74–84; RESP 16–18; TEMP 36.5–36.7; O2SAT 95–99
[2019-08-30 04:10] LABS: Basophils % 0.1 %; Eosinophils # 0.2 10^3/uL (0.0-0.8); Eosinophils % 1.3 %; Hematocrit 29.1 % (42.0-52.0); Hemoglobin 8.9 g/dL (11.7-16.6); Lymphocytes # 1.1 10^3/uL (0.8-4.8); Lymphocytes % 6.2 %; Mean Corpuscular HGB Conc 30.6 g/dL (30.0-36.0); Mean Corpuscular Hemoglobin 28.7 pg (28.0-34.0); Mean Corpuscular Volume 93.9 fL (80-94); Mean Platelet Volume 10.5 fL (7.4-10.4); Monocytes # 1.6 10^3/uL (0.2-0.9); Neutrophils # 14.7 10^3/uL (1.8-7.7); Neutrophils % 81.9 %; Nucleated Red Blood Cells % 0 %; Platelet Count 298 10^3/cmm (130-400); Red Cell Distribution Width 15.4 % (12.1-15.1); White Blood Count 17.9 10^3/uL (4.0-10.0)
[2019-08-30 04:38] LABS: Alanine Aminotransferase 24 U/L (0-41); Alkaline Phosphatase 79 IU/L (40-130); Anion Gap 17.9 (5-19); Aspartate Amino Transferase 15 U/L (0-40); Blood Urea Nitrogen 52 mg/dL (8-23); Calcium 9.2 mg/dL (8.5-10.5); Carbon Dioxide 28 mmol/L (22-29); Chloride 98 mmol/L (98-107); Globulin 3.4 g/dL (1.3-4.6); Glucose 323 mg/dL (65-115); Magnesium 2.3 mg/dL (1.7-2.3); Phosphorus 4.4 mg/dL (2.5-4.5); Potassium 3.9 mmol/L (3.5-5.1); Sodium 140 mmol/L (136-145); Total Bilirubin 0.4 mg/dL (0.15-1.2); Total Protein 6.4 g/dL (6.6-8.7)
[2019-08-30 06:36] LABS: Glucose Point of Care 266 mg/dL (70-110)
--- NOTE | 2019-08-30 06:42 | PC.NURSE ---
SHIFT SUMMARY Has had a good night. Had prn Trazadone at bedtime per pt request. Says did not sleep well last night. Has urinated several times this shift with good total output. Has denied any pain.
[2019-08-30] MEDS: tamsulosin 0.4 mg Capsule PO (08:37)
[2019-08-30] MEDS: metOLazone 5 MG Tablet PO (08:37)
[2019-08-30] MEDS: calcitriol 0.25 mcg Capsule PO (08:37)
[2019-08-30] MEDS: docusate sodium 100 mg Capsule PO ×2 (08:37→18:04)
[2019-08-30] MEDS: isosorbide mononitrate ER 60 mg Tablet 120 MG PO (08:37)
[2019-08-30] MEDS: losartan 50 mg Tablet 25 MG PO (08:38)
[2019-08-30] MEDS: metoprolol tartrate 50 mg Tablet PO ×2 (08:38→18:05)
[2019-08-30] MEDS: pantoprazole DR 40 mg Tablet PO ×2 (08:39→18:06)
[2019-08-30] MEDS: atorvastatin 40 mg Tablet 20 MG PO (08:39)
[2019-08-30] MEDS: predniSONE 20 mg Tablet 10 MG PO (08:40)
[2019-08-30] MEDS: FUROsemide 10 mg/mL SDV 4mL 40 MG IVP ×2 (08:40→20:19)
[2019-08-30 11:22] LABS: Glucose Point of Care 294 mg/dL (70-110)
--- NOTE | 2019-08-30 12:31 | PM.PN ---
Subjective Subjective: Interval history: Patient Stays he is feeling better however leg edema is there. Medications: Reviewed: Yes Medication Review Details: Current Medications Acetaminophen (Tylenol) 650 mg PO Q6H PRN PRN Reason: Mild/Mod Pain Or Temp >/= 101 Albuterol/Ipratropium (Duoneb) 3 ml INHALATION Q6H.RESPIRATORY PRN PRN Reason: SHORTNESS OF BREATH Last Admin: 08/28/19 09:00 Dose: 3 ml Documented by: Atorvastatin Calcium (Lipitor) 20 mg PO DAILY [facility] Last Admin: 08/29/19 08:07 Dose: 20 mg Documented by: Calcitriol (Rocaltrol) 0.25 mcg PO DAILY [facility] Last Admin: 08/29/19 08:07 Dose: 0.25 mcg Documented by: Dextrose (D50w) 25 ml IVP ONCE PRN; Protocol PRN Reason: hypoglycemia protocol Dextrose (D50w) 50 ml IVP PRN PRN; Protocol PRN Reason: hypoglycemia protocol Docusate Sodium (Colace) 100 mg PO BID [facility] Last Admin: 08/29/19 08:01 Dose: 100 mg Documented by: Furosemide (Lasix) 40 mg IVP Q12H [facility] Last Admin: 08/29/19 08:03 Dose: 40 mg Documented by: Glucagon (Glucagen) 1 mg IM ONCE PRN; Protocol PRN Reason: Adult Acute Hypoglycemia Prot. Dextrose (D5w) 500 mls @ 100 mls/hr IV ONCE [facility]; Protocol PRN Reason: Adult Acute Hypoglycemia Prot Levofloxacin/Dextrose (Levaquin-D5w) 750 mg in 150 mls @ 150 mls/hr IV Q48H [facility]; Protocol Last Admin: 08/27/19 12:13 Dose: 150 mls/hr Documented by: Ferric Sodium Gluconate 125 mg (/ Sodium Chloride) 110 mls @ 110 mls/hr IV Q24H [facility] Stop: 09/02/19 08:59 Last Admin: 08/29/19 08:08 Dose: 110 mls/hr Documented by: Insulin Aspart (Novolog) 0 unit SUBCUT WM&BEDTIME [facility]; Protocol Last Admin: 08/29/19 07:59 Dose: 8 unit Documented by: Insulin Glargine (Lantus) 10 unit SUBCUT BEDTIME [facility] Last Admin: 08/28/19 22:00 Dose: 10 unit Documented by: Isosorbide Mononitrate (Imdur) 120 mg PO DAILY [facility] Last Admin: 08/29/19 08:01 Dose: 120 mg Documented by: Losartan Potassium (Cozaar) 25 mg PO DAILY [facility] Last Admin: 08/29/19 08:00 Dose: 25 mg Documented by: Metoprolol Tartrate (Lopressor) 50 mg PO BID [facility] Last Admin: 08/29/19 08:01 Dose: 50 mg Documented by: Ondansetron HCl (Zofran) 4 mg IVP Q8H PRN PRN Reason: vomiting, or N/V if npo Pantoprazole Sodium (Protonix) 40 mg PO BID [facility] Last Admin: 08/29/19 08:00 Dose: 40 mg Documented by: Prednisone (Prednisone) 20 mg PO DAILY [facility] Last Admin: 08/29/19 08:01 Dose: 20 mg Documented by: Fluticasone/Salmeterol (Advair Diskus 100-50) 1 puff INHALATION BID.RESPIRATORY [facility] Last Admin: 08/28/19 21:23 Dose: 1 puff Documented by: Tamsulosin HCl (Flomax) 0.4 mg PO DAILY [facility] Last Admin: 08/29/19 08:00 Dose: 0.4 mg Documented by: Trazodone HCl (Desyrel) 100 mg PO BEDTIME PRN PRN Reason: INSOMNIA Last Admin: 08/28/19 21:58 Dose: 100 mg Documented by: Vitals/I&O/Wt Last Vital Signs Temp 97.8 F 08/30/19 07:27 Pulse 81 08/30/19 08:55 Resp 18 08/30/19 08:48 BP 171/91 08/30/19 08:38 Pulse Ox 98 08/30/19 08:48 08/29/19 08/30/19 08/30/19 22:59 06:59 14:59 Intake Total 360 / 1190 150 / 1340 240 / 240 Output Total 1075 / 2375 1375 / 3750 650 / 650 Balance -715 / -1185 -1225 / -2410 -410 / -410 Weight last 48 hrs Weight 285 lb 8 oz Physical Exam Narrative: EXAM NARRATIVE: GENERAL: Patient is alert, awake and oriented x3. NECK: No jugular vein distension. HEENT: No cyanosis. No icterus. No pallor. HEART: Regular S1 and S2. No murmur, rub or gallop. LUNGS: Clear to auscultate bilaterally. ABDOMEN: Soft, nontender and nondistended. Positive bowel sounds. No guarding, rebound or tenderness. CENTRAL NERVOUS SYSTEM: Grossly nonfocal. EXTREMITIES: Lower extremities 2+ edema bilaterally. Data : 08/30/19 03:05 08/30/19 03:05 A&P Assessment and plan (1) Coronary artery disease: Stable from a coronary disease perspective. Continue Current management Status: Acute Code(s): I25.10 - Atherosclerotic heart disease of [place] coronary artery without angina pectoris (2) Aortic stenosis: Patient moderate Aortic stenosis. Once he recovered from the recent event may will consider (right heart catheterization and assessment of aortic valve through CATHETERIZATION or by transesophageal echo will decide regarding aortic valve replacement Status: Acute Code(s): I35.0 - Nonrheumatic aortic (valve) stenosis (3) Congestive heart failure with left ventricular systolic dysfunction: Lower extremity edema has increased however it appeared to be compensated heart failure kulkarni. Advised using compression stocking. Status: Acute Code(s): I50.20 - Unspecified systolic (congestive) heart failure (4) Chronic renal disease: Improving. Status: Acute Code(s): N18.9 - Chronic kidney disease, unspecified (5) History of coronary artery bypass graft: Stable. Continue medicine Status: Acute Code(s): Z95.1 - Presence of aortocoronary bypass graft (6) Acute kidney injury: As per nephrology Status: Acute Code(s): N17.9 - Acute kidney failure, unspecified Additional A&P Information He has been placed back on Lasix 40 mg IV twice daily. We will see what this does for the ensuing 24 to 48 hours. No other changes were made. Attestations Medical Necessity Statement*: Requires continuation of hospitalization for above defined Care. Coding Level of Care Code Established Pt Acute Pressroom Foreman for Jennifer Tuttle Patient Type Established History Expanded Problem Focused Exam Expanded Problem Focused Medical Decision Making Moderate Complexity Diagnoses Coronary artery disease I25.10 Aortic stenosis I35.0 Congestive heart failure with left ventricular systolic dysfunction I50.20 Chronic renal disease N18.9 History of coronary artery bypass graft Z95.1 Acute kidney injury N17.9
--- NOTE | 2019-08-30 13:37 | P.PN_ITS ---
Subjective Subjective: Interval history: + urine hesitancy, history of lazer TURP Medications: Reviewed: Yes Vitals/I&O/Wt Last Vital Signs Temp 98.0 F 08/30/19 12:00 Pulse 75 08/30/19 12:00 Resp 18 08/30/19 12:00 BP 134/58 08/30/19 12:00 Pulse Ox 97 08/30/19 12:00 08/29/19 08/30/19 08/30/19 22:59 06:59 14:59 Intake Total 360 / 1190 150 / 1340 480 / 480 Output Total 1075 / 2375 1375 / 3750 1050 / 1050 Balance -715 / -1185 -1225 / -2410 -570 / -570 Weight last 48 hrs Weight 129.501 kg Physical Exam Const: COMMON NORMALS: no apparent distress and alert GENERAL APPEARANCE: cooperative HENMT: COMMON NORMALS: normocephalic HEAD & SCALP: normocephalic Eye: COMMON NORMALS: no scleral icterus Neck/C-Spine: COMMON NORMALS: no JVD Resp: COMMON NORMALS: normal respiratory effort Cardio: COMMON NORMALS: no JVD Extremity: COMMON NORMALS: negative for no pedal edema NARRATIVE EXTREMITY EXAM: 2+ pitting bilateral LE edema Neuro: SENSORIUM/ORIENTATION: Yes alert Data : 08/30/19 03:05 08/30/19 03:05 A&P Additional A&P Information Impression: 1. Chronic kidney disease, likely diabetic nephropathy with proteinuria and hypoalbuminemia. On now dose ARB 2. Fluid overload 3. Anemia, iron deficient, receiving IV iron 4. Hyperglycemia 5. Lower urinary tract symptoms with history of TURP. Renal ultrasound unremarkable. Recommend: 1. continue diuresis with IV furosemide and oral metalazone. Consider change to torsemide when discharged. Consider bladder scan PVR, increase tamsulosin. Will need close outpatient followup. Attestations Medical Necessity Statement*: requires intravenous diuretics Time Spent in Patient Care: 16 - 35 minutes Coding Level of Care Code Acute Welder 2Nd Shift for Jennifer Tuttle
[2019-08-30 17:29] LABS: Glucose Point of Care 286 mg/dL (70-110)
--- NOTE | 2019-08-30 20:02 | PM.PN ---
Subjective Subjective: Interval history: Breathing is improving. Lower extremity edema still significant persistent, although perhaps slightly better. Vitals/I&O/Wt Last Vital Signs Temp 97.8 F 08/30/19 16:00 Pulse 80 08/30/19 16:00 Resp 18 08/30/19 16:00 BP 162/83 08/30/19 16:00 Pulse Ox 96 08/30/19 16:00 08/30/19 08/30/19 08/30/19 06:59 14:59 22:59 Intake Total 150 / 1340 480 / 480 360 / 840 Output Total 1375 / 3750 1050 / 1050 525 / 1575 Balance -1225 / -2410 -570 / -570 -165 / -735 Weight last 48 hrs Weight 129.501 kg Physical Exam Const: COMMON NORMALS: no apparent distress and oriented x3 OTHER: Pleasant, in good spirits. HENMT: COMMON NORMALS: oropharynx normal Neck/C-Spine: COMMON NORMALS: no JVD Resp: COMMON NORMALS: normal respiratory effort and clear to auscultation bilaterally AUSCULTATION: clear to auscultation bilaterally Cardio: COMMON NORMALS: no JVD, regular rhythm, S1 normal heart sound, S2 normal heart sound and no murmurs RHYTHM: regular rhythm HEART SOUNDS: S1 normal and S2 normal GI: COMMON NORMALS: normal to inspection, nondistended, normoactive bowel sounds, soft to palpation and non-tender PALPATION: Yes soft Extremity: COMMON NORMALS: no joint enlargement GENERAL: Yes edema (2-3+ lower extremity edema persistent) Neuro: COMMON NORMALS: oriented x3 and moves all extremities Skin: COMMON NORMALS: no rashes or lesions noted GENERAL SKIN EXAM: no rashes or lesions noted Data : 08/30/19 03:05 08/30/19 03:05 A&P Assessment and plan (1) Anemia: Blood count so far stable. Tapering down his steroids. Positive occult immunochemical test. But anemia appears to have stabilized. Iron deficiency anemia. Continues on supplementation Reports past history of ibuprofen use, but not currently. PPI twice daily. H. pylori serology negative. Discussed with him if persistent/recurrent anemia or if he develops symptoms of dyspepsia may benefit from follow-up assessment by EGD. Status: Acute Code(s): D64.9 - Anemia, unspecified (2) Congestive heart failure with left ventricular systolic dysfunction: Continue attempts at diuresis. Lasix dose increased to 40 mg twice daily by IV. Appreciate cardiology follow-up. Limited by renal function. Monitor I&O. ARB. Mobilize. Additional assessment for possible TAVR as recommended by cardiology. Status: Acute Code(s): I50.20 - Unspecified systolic (congestive) heart failure (3) COPD (chronic obstructive pulmonary disease): Prednisone has been decreased to 10 mg. He is continuing to improve in terms of his breathing. Concern for contribution to hypoxia from COPD, possible pulmonary fibrosis. Due to concern for underlying pneumonia continues empirically on Levaquin. Due to concern for exacerbation of COPD continues on prednisone course. We will try to taper down prednisone as he has been doing better overall, and with positive Hemoccult may be having some GI blood loss. Nebulization. Oxygen support. Status: Acute Code(s): J44.9 - Chronic obstructive pulmonary disease, unspecified (4) Macrocytosis: B12 and folate levels were normal Status: Acute Code(s): D75.89 - Other specified diseases of blood and blood-forming organs (5) Leukocytosis: Unchanged. Status: Acute Code(s): D72.829 - Elevated white blood cell count, unspecified (6) Acute kidney injury: Creatinine appears stabilized. With concern for cardiorenal syndrome per nephrology. With significant proteinuria. Appreciate renal recommendations. Continue ARB. Cardiology discussed arrangements regarding additional work-up for management of aortic stenosis. Status: Acute Code(s): N17.9 - Acute kidney failure, unspecified (7) Elevated troponin: Secondary to aortic stenosis, heart failure. Denies chest pain. Status: Acute Code(s): R79.89 - Other specified abnormal findings of blood chemistry Additional A&P Information HTN: Blood pressure is slightly better. He continues on tamsulosin, metoprolol, Imdur. Losartan. Chronic kidney disease stage III Coronary artery disease with history of previous CABG. Holding aspirin secondary to anemia Type 2 diabetes. Hypoglycemia resolved. Continues on sliding scale insulin. Increase to 20 units Lantus nightly. GERD, continue Protonix BPH, continue Flomax Attestations Medical Necessity Statement*: Continue admission for management of CHF, in the setting of acute kidney injury, acute anemia while on steroid. Coding Level of Care Code Acute Security Site Supervisor for [facility] Fwd Diagnoses Anemia D64.9 Congestive heart failure with left ventricular systolic dysfunction I50.20 COPD (chronic obstructive pulmonary disease) J44.9 Macrocytosis D75.89 Leukocytosis D72.829 Acute kidney injury N17.9 Elevated troponin R79.89
[2019-08-30 20:43] LABS: Glucose Point of Care 302 mg/dL (70-110)
--- NOTE | 2019-08-30 21:14 | PC.NURSE ---
Post Void Residual Pt. bladder scanned immediately after voiding. Scan reading anywhere from 31-86mL residual in bladder. Pt. states that he feels like he normally does after voiding, does not feel that he is retaining urine.
[2019-08-30] MEDS: insulin glargine 100 units/1 mL 20 UNIT SUBCUT (21:44)
[2019-08-31] VITALS (10 sets, daily range): BP systolic 138–167; BP diastolic 70–82; PULSE 61–88; RESP 17–22; TEMP 36.4–36.8; O2SAT 94–99
[2019-08-31 06:15] LABS: Basophils % 0.2 %; Eosinophils # 0.5 10^3/uL (0.0-0.8); Eosinophils % 2.7 %; Hematocrit 32.6 % (42.0-52.0); Hemoglobin 10.2 g/dL (11.7-16.6); Lymphocytes # 1.3 10^3/uL (0.8-4.8); Lymphocytes % 6.7 %; Mean Corpuscular HGB Conc 31.3 g/dL (30.0-36.0); Mean Corpuscular Hemoglobin 30.3 pg (28.0-34.0); Mean Corpuscular Volume 96.7 fL (80-94); Mean Platelet Volume 10.5 fL (7.4-10.4); Monocytes # 1.5 10^3/uL (0.2-0.9); Monocytes % 7.9 %; Neutrophils # 15.3 10^3/uL (1.8-7.7); Neutrophils % 81.2 %; Nucleated Red Blood Cells % 0 %; Platelet Count 329 10^3/cmm (130-400); Red Blood Count 3.37 10^6/uL (4.1-5.3); Red Cell Distribution Width 15.5 % (12.1-15.1); White Blood Count 18.8 10^3/uL (4.0-10.0)
[2019-08-31 06:25] LABS: Glucose Point of Care 151 mg/dL (70-110)
[2019-08-31 06:36] LABS: Alanine Aminotransferase 25 U/L (0-41); Albumin Level 3.1 g/dL (3.5-5.2); Alkaline Phosphatase 85 IU/L (40-130); Anion Gap 15.8 (5-19); Aspartate Amino Transferase 15 U/L (0-40); Blood Urea Nitrogen 49 mg/dL (8-23); Calcium 9.8 mg/dL (8.5-10.5); Carbon Dioxide 32 mmol/L (22-29); Chloride 97 mmol/L (98-107); Globulin 3.7 g/dL (1.3-4.6); Glucose 154 mg/dL (65-115); Magnesium 2.1 mg/dL (1.7-2.3); Phosphorus 4.5 mg/dL (2.5-4.5); Potassium 3.8 mmol/L (3.5-5.1); Sodium 141 mmol/L (136-145); Total Bilirubin 0.5 mg/dL (0.15-1.2); Total Protein 6.8 g/dL (6.6-8.7)
--- NOTE | 2019-08-31 06:50 | ECG_ITS ---
Measurements Intervals [place] Rate: 90 P: 46 PA: 191 QRS: 224 QRSD: 161 T: 20 QT: 424 QTc: 519 SINUS RHYTHM WITH OCCASIONAL SUPRAVENTRICULAR PREMATURE COMPLEXES POSSIBLE LEFT ATRIAL ENLARGEMENT [-0.1mV P WAVE IN V1/V2] INDETERMINATE AXIS RIGHT BUNDLE BRANCH BLOCK [120+ ms QRS DURATION, UPRIGHT V1, 40+ ms S IN I/aV I/aVL/V4/V5/V6] Compared to ECG 08/22/2019 17:13:22 Sinus tachycardia no longer present Ventricular premature complex(es) no longer present Electronically Signed On 08-31-2019 14:13:33 ANIMAL SCIENCE PROFESSOR by Tenzin Shea M.D. [email or web address]
[2019-08-31] MEDS: pantoprazole DR 40 mg Tablet PO ×2 (08:59→17:55)
[2019-08-31] MEDS: losartan 50 mg Tablet 25 MG PO (09:00)
[2019-08-31] MEDS: atorvastatin 40 mg Tablet 20 MG PO (09:03)
[2019-08-31] MEDS: metOLazone 5 MG Tablet PO (09:04)
[2019-08-31] MEDS: docusate sodium 100 mg Capsule PO ×2 (09:04→17:55)
[2019-08-31] MEDS: isosorbide mononitrate ER 60 mg Tablet 120 MG PO (09:04)
[2019-08-31] MEDS: tamsulosin 0.4 mg Capsule PO (09:05)
[2019-08-31] MEDS: predniSONE 20 mg Tablet 10 MG PO (09:05)
[2019-08-31] MEDS: metoprolol tartrate 50 mg Tablet PO ×2 (09:05→17:55)
[2019-08-31] MEDS: calcitriol 0.25 mcg Capsule PO (09:57)
[2019-08-31] MEDS: FUROsemide 10 mg/mL SDV 4mL 40 MG IVP (10:44)
[2019-08-31 10:52] LABS: Glucose Point of Care 280 mg/dL (70-110)
[2019-08-31] MEDS: levoFLOXacin 750 mg Tablet PO (11:32)
--- NOTE | 2019-08-31 13:50 | PC.SOCIAL ---
IMM Updated Updated pt on Pg 2 IMM. Pt verbally understands. No questions voiced. Provided a copy to pt & left on pt's bedside table. Signed, dated, & timed original in chart.
--- NOTE | 2019-08-31 14:04 | P.PN_ITS ---
Subjective Subjective: Interval history: feeling slightly better, still reports urine hesitancy. only urinates about 150 ml per void. + frequent urination Medications: Reviewed: Yes Vitals/I&O/Wt Last Vital Signs Temp 98 F 08/31/19 12:00 Pulse 79 08/31/19 12:00 Resp 18 08/31/19 12:00 BP 144/70 08/31/19 12:00 Pulse Ox 98 08/31/19 12:00 08/30/19 08/31/19 08/31/19 22:59 06:59 14:59 Intake Total 480 / 1070 480 / 480 Output Total 1550 / 2600 500 / 3100 875 / 875 Balance -1070 / -1530 -500 / -2030 -395 / -395 Weight last 48 hrs Weight 129.841 kg Weight 129.501 kg Physical Exam Narrative: EXAM NARRATIVE: COMMON NORMALS: no apparent distress and alert GENERAL APPEARANCE: cooperative HENMT COMMON NORMALS: normocephalic HEAD & SCALP: normocephalic Eye COMMON NORMALS: no scleral icterus Neck/C-Spine COMMON NORMALS: no JVD Resp COMMON NORMALS: normal respiratory effort Cardio regular, + murmur COMMON NORMALS: no JVD Extremity NARRATIVE EXTREMITY EXAM: 2+ pitting bilateral LE edema Neuro SENSORIUM/ORIENTATION: Yes alert Data : 08/31/19 05:05 08/31/19 05:05 A&P Additional A&P Information Impression: 1. Chronic kidney disease, likely diabetic nephropathy with proteinuria and hypoalbuminemia. On now dose ARB, Renal function stable. 2. Fluid overload 3. Anemia, iron deficient, receiving IV iron, Hb stable 4. Lower urinary tract symptoms with history of TURP. Renal ultrasound unremarkable. 5. metabolic alkalosis, low normal potassium Recommend: 1. continue diuresis with IV furosemide and oral metalazone. Add oral KCl. Consider change to torsemide when discharged. Check bladder scan PVR, increase tamsulosin. Will need close outpatient followup. Attestations Medical Necessity Statement*: per primary service Time Spent in Patient Care: 16 - 35 minutes Coding Level of Care Code Acute Baking Factory Worker for Jennifer Tuttle
--- NOTE | 2019-08-31 15:43 | PC.NURSE ---
bladder scan ordered for post void, pt had 29-72 on bladder scan after voiding 200.
[2019-08-31 16:52] LABS: Glucose Point of Care 340 mg/dL (70-110)
--- NOTE | 2019-08-31 17:38 | P.PN_ITS ---
Subjective Subjective: Interval history: Denies any worsening in his breathing. Legs still swollen . Vitals/I&O/Wt Last Vital Signs Temp 98 F 08/31/19 15:29 Pulse 78 08/31/19 15:29 Resp 18 08/31/19 15:29 BP 138/75 08/31/19 15:29 Pulse Ox 97 08/31/19 15:29 08/31/19 08/31/19 08/31/19 06:59 14:59 22:59 Intake Total 480 / 480 Output Total 500 / 3100 875 / 875 200 / 1075 Balance -500 / -2030 -395 / -395 -200 / -595 Weight last 48 hrs Weight 129.841 kg Weight 129.501 kg Physical Exam Const: COMMON NORMALS: no apparent distress and oriented x3 OTHER: Pleasant, in good spirits. HENMT: COMMON NORMALS: oropharynx normal Neck/C-Spine: COMMON NORMALS: no JVD Resp: COMMON NORMALS: normal respiratory effort and clear to auscultation bilaterally AUSCULTATION: clear to auscultation bilaterally Cardio: COMMON NORMALS: no JVD, regular rhythm, S1 normal heart sound, S2 normal heart sound and no murmurs RHYTHM: regular rhythm HEART SOUNDS: S1 normal and S2 normal GI: COMMON NORMALS: normal to inspection, nondistended, normoactive bowel sounds, soft to palpation and non-tender PALPATION: Yes soft Extremity: COMMON NORMALS: no joint enlargement GENERAL: Yes edema (2-3+ lower extremity edema persistent) Neuro: COMMON NORMALS: oriented x3 and moves all extremities Skin: COMMON NORMALS: no rashes or lesions noted GENERAL SKIN EXAM: no rashes or lesions noted Data : 08/31/19 05:05 08/31/19 05:05 A&P Assessment and plan (1) Anemia: Blood stable. Today with increase in hemoglobin likely due to diuresis. Tapering down his steroids. Positive occult immunochemical test. Iron deficiency anemia. Continues on supplementation Reports past history of ibuprofen use, but not currently. PPI twice daily. H. pylori serology negative. Discussed with him if persistent/recurrent anemia or if he develops symptoms of dyspepsia may benefit from follow-up assessment by EGD. Status: Acute Code(s): D64.9 - Anemia, unspecified (2) Congestive heart failure with left ventricular systolic dysfunction: Continue attempts at diuresis. Continues with diuresis. Puts out small amounts of urine. Bladder scan after voiding 200 and reported 29-72 mL. Continue tamsulosin. Limited by renal function. Monitor I&O. ARB. Mobilize. Additional assessment for possible TAVR as recommended by cardiology. Status: Acute Code(s): I50.20 - Unspecified systolic (congestive) heart failure (3) COPD (chronic obstructive pulmonary disease): Decrease prednisone to 5 mg as he has so far been doing well. He is continuing to improve in terms of his breathing. Concern for contribution to hypoxia from COPD, possible pulmonary fibrosis. Due to concern for underlying pneumonia continues empirically on Levaquin. Due to concern for exacerbation of COPD continues on prednisone course. We will try to taper down prednisone as he has been doing better overall, and with positive Hemoccult may be having some GI blood loss. Nebulization. Oxygen support. Status: Acute Code(s): J44.9 - Chronic obstructive pulmonary disease, unspecified (4) Macrocytosis: B12 and folate levels were normal Status: Acute Code(s): D75.89 - Other specified diseases of blood and blood-forming organs (5) Leukocytosis: Unchanged. Status: Acute Code(s): D72.829 - Elevated white blood cell count, unspecified (6) Acute kidney injury: Creatinine appears stabilized. With concern for cardiorenal syndrome per nephrology. With significant proteinuria. Appreciate renal recommendations. Continue ARB. Cardiology discussed arrangements regarding additional work-up for management of aortic stenosis. Status: Acute Code(s): N17.9 - Acute kidney failure, unspecified (7) Elevated troponin: Secondary to aortic stenosis, heart failure. Denies chest pain. Status: Acute Code(s): R79.89 - Other specified abnormal findings of blood chemistry Additional A&P Information HTN: Blood pressure is slightly better. He continues on tamsulosin, metoprolol, Imdur. Losartan. Chronic kidney disease stage III Coronary artery disease with history of previous CABG. Holding aspirin secondary to anemia Type 2 diabetes. Hypoglycemia resolved. Continues on sliding scale insulin. 20 units Lantus nightly. GERD, continue Protonix BPH, continue Flomax Attestations Medical Necessity Statement*: Continue admission for management of CHF, arrangements for follow-up for aortic stenosis. Coding Level of Care Code Acute Customer Retention Specialist for [facility] Fwd Diagnoses Anemia D64.9 Congestive heart failure with left ventricular systolic dysfunction I50.20 COPD (chronic obstructive pulmonary disease) J44.9 Macrocytosis D75.89 Leukocytosis D72.829 Acute kidney injury N17.9 Elevated troponin R79.89
--- NOTE | 2019-08-31 18:59 | PM.PN ---
Subjective Subjective: Interval history: Patient has short nonsustained run off ventricular tachycardia. Patient also has SVT with aberrant conduction mimicking VT. Medications: Reviewed: Yes Medication Review Details: Current Medications Acetaminophen (Tylenol) 650 mg PO Q6H PRN PRN Reason: Mild/Mod Pain Or Temp >/= 101 Albuterol/Ipratropium (Duoneb) 3 ml INHALATION Q6H.RESPIRATORY PRN PRN Reason: SHORTNESS OF BREATH Last Admin: 08/28/19 09:00 Dose: 3 ml Documented by: Atorvastatin Calcium (Lipitor) 20 mg PO DAILY [facility] Last Admin: 08/29/19 08:07 Dose: 20 mg Documented by: Calcitriol (Rocaltrol) 0.25 mcg PO DAILY [facility] Last Admin: 08/29/19 08:07 Dose: 0.25 mcg Documented by: Dextrose (D50w) 25 ml IVP ONCE PRN; Protocol PRN Reason: hypoglycemia protocol Dextrose (D50w) 50 ml IVP PRN PRN; Protocol PRN Reason: hypoglycemia protocol Docusate Sodium (Colace) 100 mg PO BID [facility] Last Admin: 08/29/19 08:01 Dose: 100 mg Documented by: Furosemide (Lasix) 40 mg IVP Q12H [facility] Last Admin: 08/29/19 08:03 Dose: 40 mg Documented by: Glucagon (Glucagen) 1 mg IM ONCE PRN; Protocol PRN Reason: Adult Acute Hypoglycemia Prot. Dextrose (D5w) 500 mls @ 100 mls/hr IV ONCE PRN; Protocol PRN Reason: Adult Acute Hypoglycemia Prot Levofloxacin/Dextrose (Levaquin-D5w) 750 mg in 150 mls @ 150 mls/hr IV Q48H [facility]; Protocol Last Admin: 08/27/19 12:13 Dose: 150 mls/hr Documented by: Ferric Sodium Gluconate 125 mg (/ Sodium Chloride) 110 mls @ 110 mls/hr IV Q24H [facility] Stop: 09/02/19 08:59 Last Admin: 08/29/19 08:08 Dose: 110 mls/hr Documented by: Insulin Aspart (Novolog) 0 unit SUBCUT WM&BEDTIME [facility]; Protocol Last Admin: 08/29/19 07:59 Dose: 8 unit Documented by: Insulin Glargine (Lantus) 10 unit SUBCUT BEDTIME [facility] Last Admin: 08/28/19 22:00 Dose: 10 unit Documented by: Isosorbide Mononitrate (Imdur) 120 mg PO DAILY [facility] Last Admin: 08/29/19 08:01 Dose: 120 mg Documented by: Losartan Potassium (Cozaar) 25 mg PO DAILY [facility] Last Admin: 08/29/19 08:00 Dose: 25 mg Documented by: Metoprolol Tartrate (Lopressor) 50 mg PO BID [facility] Last Admin: 08/29/19 08:01 Dose: 50 mg Documented by: Ondansetron HCl (Zofran) 4 mg IVP Q8H PRN PRN Reason: vomiting, or N/V if npo Pantoprazole Sodium (Protonix) 40 mg PO BID [facility] Last Admin: 08/29/19 08:00 Dose: 40 mg Documented by: Prednisone (Prednisone) 20 mg PO DAILY [facility] Last Admin: 08/29/19 08:01 Dose: 20 mg Documented by: Fluticasone/Salmeterol (Advair Diskus 100-50) 1 puff INHALATION BID.RESPIRATORY [facility] Last Admin: 08/28/19 21:23 Dose: 1 puff Documented by: Tamsulosin HCl (Flomax) 0.4 mg PO DAILY [facility] Last Admin: 08/29/19 08:00 Dose: 0.4 mg Documented by: Trazodone HCl (Desyrel) 100 mg PO BEDTIME PRN PRN Reason: INSOMNIA Last Admin: 08/28/19 21:58 Dose: 100 mg Documented by: Vitals/I&O/Wt Last Vital Signs Temp 98 F 08/31/19 15:29 Pulse 78 08/31/19 15:29 Resp 18 08/31/19 15:29 BP 138/75 08/31/19 15:29 Pulse Ox 97 08/31/19 15:29 08/31/19 08/31/19 08/31/19 06:59 14:59 22:59 Intake Total 480 / 480 Output Total 500 / 3100 875 / 875 600 / 1475 Balance -500 / -2030 -395 / -395 -600 / -995 Weight last 48 hrs Weight 286 lb 4 oz Weight 285 lb 8 oz Physical Exam Narrative: EXAM NARRATIVE: GENERAL: Patient is alert, awake and oriented x3. NECK: No jugular vein distension. HEENT: No cyanosis. No icterus. No pallor. HEART: Regular S1 and S2. No murmur, rub or gallop. LUNGS: Clear to auscultate bilaterally. ABDOMEN: Soft, nontender and nondistended. Positive bowel sounds. No guarding, rebound or tenderness. CENTRAL NERVOUS SYSTEM: Grossly nonfocal. EXTREMITIES: Lower extremities 1+ edema bilaterally. Data : 08/31/19 05:05 08/31/19 05:05 A&P Assessment and plan (1) Coronary artery disease: Stable from a coronary disease perspective. Patient has short run of VT. We will back off on Lasix. Will keep electrolyte imbalance. I will give him magnesium oxide. We will increase metoprolol to 75 mg in the morning and 50 mg in the evening. Status: Acute Code(s): I25.10 - Atherosclerotic heart disease of [place] coronary artery without angina pectoris (2) Aortic stenosis: Patient moderate Aortic stenosis. Once he recovered from the recent event may will consider (right heart catheterization and assessment of aortic valve through CATHETERIZATION or by transesophageal echo will decide regarding aortic valve replacement Status: Acute Code(s): I35.0 - Nonrheumatic aortic (valve) stenosis (3) Congestive heart failure with left ventricular systolic dysfunction: Lower extremity edema has increased however it appeared to be compensated heart failure kulkarni. Advised using compression stocking. Status: Acute Code(s): I50.20 - Unspecified systolic (congestive) heart failure (4) Chronic renal disease: Improving. Status: Acute Code(s): N18.9 - Chronic kidney disease, unspecified (5) History of coronary artery bypass graft: Stable. Continue medicine Status: Acute Code(s): Z95.1 - Presence of aortocoronary bypass graft (6) Acute kidney injury: As per nephrology Status: Acute Code(s): N17.9 - Acute kidney failure, unspecified Additional A&P Information He has been placed back on Lasix 40 mg IV twice daily. We will see what this does for the ensuing 24 to 48 hours. No other changes were made. Attestations Medical Necessity Statement*: As per medicine Coding Level of Care Code Established Pt Acute Trial Court Justice for Jennifer Tuttle Patient Type Established History Expanded Problem Focused Exam Expanded Problem Focused Medical Decision Making Moderate Complexity Diagnoses Coronary artery disease I25.10 Aortic stenosis I35.0 Congestive heart failure with left ventricular systolic dysfunction I50.20 Chronic renal disease N18.9 History of coronary artery bypass graft Z95.1 Acute kidney injury N17.9
[2019-08-31 21:23] LABS: Glucose Point of Care 404 mg/dL (70-110)
[2019-08-31 21:23] LABS: Glucose Point of Care 502 mg/dL (70-110)
[2019-08-31 22:15] LABS: Glucose 330 mg/dL (65-115)
--- NOTE | 2019-08-31 22:16 | PC.NURSE ---
Glucose Glucometer read two values with significant difference. Stat blood glucose lab ordered.
[2019-08-31] MEDS: insulin glargine 100 units/1 mL 20 UNIT SUBCUT (22:35)
[2019-09-01] VITALS (9 sets, daily range): BP systolic 123–155; BP diastolic 71–87; PULSE 72–87; RESP 17–20; TEMP 36.6–37.1; O2SAT 92–98
[2019-09-01 04:44] LABS: Basophils % 0.1 %; Eosinophils # 0.4 10^3/uL (0.0-0.8); Eosinophils % 2.7 %; Hematocrit 29.4 % (42.0-52.0); Hemoglobin 9.2 g/dL (11.7-16.6); Lymphocytes % 6.4 %; Mean Corpuscular HGB Conc 31.3 g/dL (30.0-36.0); Mean Corpuscular Hemoglobin 29.3 pg (28.0-34.0); Mean Corpuscular Volume 93.6 fL (80-94); Mean Platelet Volume 10.6 fL (7.4-10.4); Monocytes # 1.6 10^3/uL (0.2-0.9); Monocytes % 9.7 %; Neutrophils # 12.8 10^3/uL (1.8-7.7); Nucleated Red Blood Cells % 0 %; Platelet Count 284 10^3/cmm (130-400); Red Blood Count 3.14 10^6/uL (4.1-5.3); Red Cell Distribution Width 15.6 % (12.1-15.1)
[2019-09-01 05:11] LABS: Alanine Aminotransferase 21 U/L (0-41); Albumin Level 2.7 g/dL (3.5-5.2); Alkaline Phosphatase 80 IU/L (40-130); Anion Gap 12.6 (5-19); Aspartate Amino Transferase 15 U/L (0-40); Blood Urea Nitrogen 57 mg/dL (8-23); Calcium 9.3 mg/dL (8.5-10.5); Carbon Dioxide 34 mmol/L (22-29); Chloride 97 mmol/L (98-107); Globulin 3.4 g/dL (1.3-4.6); Glucose 160 mg/dL (65-115); Magnesium 2.1 mg/dL (1.7-2.3); Phosphorus 4.3 mg/dL (2.5-4.5); Potassium 3.6 mmol/L (3.5-5.1); Sodium 140 mmol/L (136-145); Total Bilirubin 0.5 mg/dL (0.15-1.2); Total Protein 6.1 g/dL (6.6-8.7)
[2019-09-01 06:40] LABS: Glucose Point of Care 142 mg/dL (70-110)
[2019-09-01] MEDS: magnesium oxide 400 mg tablet PO (09:22)
[2019-09-01] MEDS: metoprolol tartrate 50 mg Tablet PO (09:22)
[2019-09-01] MEDS: docusate sodium 100 mg Capsule PO (09:22)
[2019-09-01] MEDS: isosorbide mononitrate ER 60 mg Tablet 120 MG PO (09:22)
[2019-09-01] MEDS: predniSONE 5 mg Tablet PO (09:23)
[2019-09-01] MEDS: tamsulosin 0.4 mg Capsule 0.8 MG PO (09:23)
[2019-09-01] MEDS: pantoprazole DR 40 mg Tablet PO (09:24)
[2019-09-01] MEDS: atorvastatin 40 mg Tablet 20 MG PO (09:24)
[2019-09-01] MEDS: losartan 50 mg Tablet 25 MG PO (09:24)
[2019-09-01] MEDS: calcitriol 0.25 mcg Capsule PO (09:24)
[2019-09-01] MEDS: FUROsemide 40 mg Tablet PO ×2 (09:29→16:21)
[2019-09-01] MEDS: metOLazone 5 MG Tablet PO (10:00)
--- NOTE | 2019-09-01 10:22 | P.PN_ITS ---
Subjective Subjective: Interval history: Swelling is overall improved with persistent LE edema but this is consistent with his baseline. Breathing is better now and also at baseline. Passing urine normally with no obstruction. Medications: Reviewed: Yes Medication Review Details: Current Medications Acetaminophen (Tylenol) 650 mg PO Q6H PRN PRN Reason: Mild/Mod Pain Or Temp >/= 101 Albuterol/Ipratropium (Duoneb) 3 ml INHALATION Q6H.RESPIRATORY PRN PRN Reason: SHORTNESS OF BREATH Last Admin: 08/28/19 09:00 Dose: 3 ml Documented by: Atorvastatin Calcium (Lipitor) 20 mg PO DAILY [facility] Last Admin: 08/29/19 08:07 Dose: 20 mg Documented by: Calcitriol (Rocaltrol) 0.25 mcg PO DAILY [facility] Last Admin: 08/29/19 08:07 Dose: 0.25 mcg Documented by: Dextrose (D50w) 25 ml IVP ONCE PRN; Protocol PRN Reason: hypoglycemia protocol Dextrose (D50w) 50 ml IVP PRN PRN; Protocol PRN Reason: hypoglycemia protocol Docusate Sodium (Colace) 100 mg PO BID [facility] Last Admin: 08/29/19 08:01 Dose: 100 mg Documented by: Furosemide (Lasix) 40 mg IVP Q12H [facility] Last Admin: 08/29/19 08:03 Dose: 40 mg Documented by: Glucagon (Glucagen) 1 mg IM ONCE PRN; Protocol PRN Reason: Adult Acute Hypoglycemia Prot. Dextrose (D5w) 500 mls @ 100 mls/hr IV ONCE PRN; Protocol PRN Reason: Adult Acute Hypoglycemia Prot Levofloxacin/Dextrose (Levaquin-D5w) 750 mg in 150 mls @ 150 mls/hr IV Q48H [facility]; Protocol Last Admin: 08/27/19 12:13 Dose: 150 mls/hr Documented by: Ferric Sodium Gluconate 125 mg (/ Sodium Chloride) 110 mls @ 110 mls/hr IV Q24H [facility] Stop: 09/02/19 08:59 Last Admin: 08/29/19 08:08 Dose: 110 mls/hr Documented by: Insulin Aspart (Novolog) 0 unit SUBCUT WM&BEDTIME [facility]; Protocol Last Admin: 08/29/19 07:59 Dose: 8 unit Documented by: Insulin Glargine (Lantus) 10 unit SUBCUT BEDTIME [facility] Last Admin: 08/28/19 22:00 Dose: 10 unit Documented by: Isosorbide Mononitrate (Imdur) 120 mg PO DAILY [facility] Last Admin: 08/29/19 08:01 Dose: 120 mg Documented by: Losartan Potassium (Cozaar) 25 mg PO DAILY [facility] Last Admin: 08/29/19 08:00 Dose: 25 mg Documented by: Metoprolol Tartrate (Lopressor) 50 mg PO BID [facility] Last Admin: 08/29/19 08:01 Dose: 50 mg Documented by: Ondansetron HCl (Zofran) 4 mg IVP Q8H PRN PRN Reason: vomiting, or N/V if npo Pantoprazole Sodium (Protonix) 40 mg PO BID [facility] Last Admin: 08/29/19 08:00 Dose: 40 mg Documented by: Prednisone (Prednisone) 20 mg PO DAILY [facility] Last Admin: 08/29/19 08:01 Dose: 20 mg Documented by: Fluticasone/Salmeterol (Advair Diskus 100-50) 1 puff INHALATION BID.RESPIRATORY [facility] Last Admin: 08/28/19 21:23 Dose: 1 puff Documented by: Tamsulosin HCl (Flomax) 0.4 mg PO DAILY [facility] Last Admin: 08/29/19 08:00 Dose: 0.4 mg Documented by: Trazodone HCl (Desyrel) 100 mg PO BEDTIME PRN PRN Reason: INSOMNIA Last Admin: 08/28/19 21:58 Dose: 100 mg Documented by: Vitals/I&O/Wt Last Vital Signs Temp 97.9 F 09/01/19 08:00 Pulse 84 09/01/19 08:59 Resp 18 09/01/19 08:57 BP 123/87 09/01/19 09:24 Pulse Ox 96 09/01/19 08:57 08/31/19 09/01/19 09/01/19 22:59 06:59 14:59 Intake Total 240 / 830 360 / 1190 Output Total 600 / 1475 675 / 2150 Balance -360 / -645 -315 / -960 Weight last 48 hrs Weight 123.887 kg Weight 129.841 kg Physical Exam Const: COMMON NORMALS: no apparent distress, average body habitus and oriented x3 HENMT: COMMON NORMALS: normocephalic and head/scalp atraumatic HEAD & SCALP: normocephalic and atraumatic Eye: COMMON NORMALS: EOMs intact bilaterally Neck/C-Spine: COMMON NORMALS: no JVD Lymph: LYMPHATIC: no lymphadenopathy noted Chest: CHEST: Yes abnormal inspection of the chest Resp: COMMON NORMALS: normal respiratory effort and no retractions AUSCULTATION: rales and diminished lung sounds Cardio: COMMON NORMALS: no JVD and regular rate RATE: regular rate GI: COMMON NORMALS: normal to inspection, nondistended, normoactive bowel sounds Extremity: COMMON NORMALS: normal to inspection and full ROM GENERAL: Yes edema Neuro: COMMON NORMALS: oriented x3 Data : 09/01/19 04:24 09/01/19 04:24 A&P Additional A&P Information Impression: 1. Chronic kidney disease, likely diabetic nephropathy with proteinuria and hy poalbuminemia. On now dose ARB, Renal function stable. 2. Fluid overload overall improved 3. Anemia, iron deficient, receiving IV iron, Hb stable 4. Lower urinary tract symptoms with history of TURP. Renal ultrasound unremarkable. 5. metabolic alkalosis, low normal potassium Recommend: 1. continue po diuretics. work up per Dr Smalls. 2. Close OP F/u - renal issues remain stable and chronic. Will watch labs and Is and Os but will follow peripherally at this time, please call with any concerns, thanks Attestations Medical Necessity Statement*: eval for renal failure Coding Level of Care Code Acute Submarine Operator for Jennifer Tuttle
[2019-09-01 13:34] LABS: Glucose Point of Care 308 mg/dL (70-110)
--- NOTE | 2019-09-01 15:01 | PM.PN ---
Subjective Subjective: Interval history: Continues to feel better. Denies any complaint. No more arrhythmia noted on the telemetry. Medications: Reviewed: Yes Medication Review Details: Current Medications Acetaminophen (Tylenol) 650 mg PO Q6H PRN PRN Reason: Mild/Mod Pain Or Temp >/= 101 Albuterol/Ipratropium (Duoneb) 3 ml INHALATION Q6H.RESPIRATORY PRN PRN Reason: SHORTNESS OF BREATH Last Admin: 08/28/19 09:00 Dose: 3 ml Documented by: Atorvastatin Calcium (Lipitor) 20 mg PO DAILY [facility] Last Admin: 08/29/19 08:07 Dose: 20 mg Documented by: Calcitriol (Rocaltrol) 0.25 mcg PO DAILY [facility] Last Admin: 08/29/19 08:07 Dose: 0.25 mcg Documented by: Dextrose (D50w) 25 ml IVP ONCE PRN; Protocol PRN Reason: hypoglycemia protocol Dextrose (D50w) 50 ml IVP PRN PRN; Protocol PRN Reason: hypoglycemia protocol Docusate Sodium (Colace) 100 mg PO BID [facility] Last Admin: 08/29/19 08:01 Dose: 100 mg Documented by: Furosemide (Lasix) 40 mg IVP Q12H [facility] Last Admin: 08/29/19 08:03 Dose: 40 mg Documented by: Glucagon (Glucagen) 1 mg IM ONCE PRN; Protocol PRN Reason: Adult Acute Hypoglycemia Prot. Dextrose (D5w) 500 mls @ 100 mls/hr IV ONCE PRN; Protocol PRN Reason: Adult Acute Hypoglycemia Prot Levofloxacin/Dextrose (Levaquin-D5w) 750 mg in 150 mls @ 150 mls/hr IV Q48H [facility]; Protocol Last Admin: 08/27/19 12:13 Dose: 150 mls/hr Documented by: Ferric Sodium Gluconate 125 mg (/ Sodium Chloride) 110 mls @ 110 mls/hr IV Q24H [facility] Stop: 09/02/19 08:59 Last Admin: 08/29/19 08:08 Dose: 110 mls/hr Documented by: Insulin Aspart (Novolog) 0 unit SUBCUT WM&BEDTIME [facility]; Protocol Last Admin: 08/29/19 07:59 Dose: 8 unit Documented by: Insulin Glargine (Lantus) 10 unit SUBCUT BEDTIME [facility] Last Admin: 08/28/19 22:00 Dose: 10 unit Documented by: Isosorbide Mononitrate (Imdur) 120 mg PO DAILY [facility] Last Admin: 08/29/19 08:01 Dose: 120 mg Documented by: Losartan Potassium (Cozaar) 25 mg PO DAILY [facility] Last Admin: 08/29/19 08:00 Dose: 25 mg Documented by: Metoprolol Tartrate (Lopressor) 50 mg PO BID [facility] Last Admin: 08/29/19 08:01 Dose: 50 mg Documented by: Ondansetron HCl (Zofran) 4 mg IVP Q8H PRN PRN Reason: vomiting, or N/V if npo Pantoprazole Sodium (Protonix) 40 mg PO BID [facility] Last Admin: 08/29/19 08:00 Dose: 40 mg Documented by: Prednisone (Prednisone) 20 mg PO DAILY [facility] Last Admin: 08/29/19 08:01 Dose: 20 mg Documented by: Fluticasone/Salmeterol (Advair Diskus 100-50) 1 puff INHALATION BID.RESPIRATORY [facility] Last Admin: 08/28/19 21:23 Dose: 1 puff Documented by: Tamsulosin HCl (Flomax) 0.4 mg PO DAILY [facility] Last Admin: 08/29/19 08:00 Dose: 0.4 mg Documented by: Trazodone HCl (Desyrel) 100 mg PO BEDTIME PRN PRN Reason: INSOMNIA Last Admin: 08/28/19 21:58 Dose: 100 mg Documented by: Vitals/I&O/Wt Last Vital Signs Temp 97.9 F 09/01/19 08:00 Pulse 84 09/01/19 08:59 Resp 18 09/01/19 08:57 BP 123/87 09/01/19 09:24 Pulse Ox 96 09/01/19 08:57 09/01/19 09/01/19 09/01/19 06:59 14:59 22:59 Intake Total 360 / 1190 Output Total 675 / 2150 Balance -315 / -960 Weight last 48 hrs Weight 273 lb 2 oz Weight 286 lb 4 oz Physical Exam Narrative: EXAM NARRATIVE: GENERAL: Patient is alert, awake and oriented x3. NECK: No jugular vein distension. HEENT: No cyanosis. No icterus. No pallor. HEART: Regular S1 and S2. No murmur, rub or gallop. LUNGS: Clear to auscultate bilaterally. ABDOMEN: Soft, nontender and nondistended. Positive bowel sounds. No guarding, rebound or tenderness. CENTRAL NERVOUS SYSTEM: Grossly nonfocal. EXTREMITIES: Lower extremities without edema bilaterally. Data : 09/01/19 04:24 09/01/19 04:24 A&P Assessment and plan (1) Coronary artery disease: Stable from a coronary disease perspective. No more arrhythmias. Continue metoprolol 75 mg in the morning and 25 mg in the evening. Patient can follow-up with Linda Santos cardiology nurse practitioner in 7 days and myself in 6 to 8 weeks Status: Acute Code(s): I25.10 - Atherosclerotic heart disease of [place] coronary artery without angina pectoris (2) Aortic stenosis: Patient moderate Aortic stenosis. Once he recovered from the recent event may will consider (right heart catheterization and assessment of aortic valve through CATHETERIZATION or by transesophageal echo will decide regarding aortic valve replacement Status: Acute Code(s): I35.0 - Nonrheumatic aortic (valve) stenosis (3) Congestive heart failure with left ventricular systolic dysfunction: Well compensated. Will continue Lasix at 40 mg twice a day. Potassium chloride will be kept at 20 meq once a day for Status: Acute Code(s): I50.20 - Unspecified systolic (congestive) heart failure (4) Chronic renal disease: Creatinine is at its baseline. Status: Acute Code(s): N18.9 - Chronic kidney disease, unspecified (5) History of coronary artery bypass graft: Stable. Continue medicine Status: Acute Code(s): Z95.1 - Presence of aortocoronary bypass graft (6) Acute kidney injury: Improved Status: Acute Code(s): N17.9 - Acute kidney failure, unspecified Additional A&P Information He has been placed back on Lasix 40 mg IV twice daily. We will see what this does for the ensuing 24 to 48 hours. No other changes were made. Attestations Medical Necessity Statement*: From a cardiovascular perspective patient can be discharged home Coding Level of Care Code Acute Revenue Cycle Administrator for Brittanyg Fwd History Expanded Problem Focused Exam Expanded Problem Focused Medical Decision Making Moderate Complexity Diagnoses Coronary artery disease I25.10 Aortic stenosis I35.0 Congestive heart failure with left ventricular systolic dysfunction I50.20 Chronic renal disease N18.9 History of coronary artery bypass graft Z95.1 Acute kidney injury N17.9
--- NOTE | 2019-09-01 17:07 | PC.NURSE ---
DISCHARGE SUMMARY Patient was given discharge summary. was at bedside to listen to discharge summary. IV was discontinued and vital signs within normal limits. patients home health was given report to. 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 Alert and oriented.
--- NOTE | 2019-09-01 19:12 | P.DS_ITS ---
Discharge Providers Date of Admission: 08/22/19 14:05 Date of Discharge: September 01, 2019 Attending Provider at Admission: Saroj Frances MD Attending Provider at Discharge: Ayo Perera Primary Care Provider: Anton Pak DO Diagnoses at Discharge Discharge Diagnosis (1) Congestive heart failure with left ventricular systolic dysfunction: Status: Acute (2) Acute kidney injury: Status: Acute (3) Aortic stenosis: Status: Acute (4) Coronary artery disease: Status: Acute (5) Chronic renal disease: Status: Acute (6) History of coronary artery bypass graft: Status: Acute Reason for Visit Reason for Visit: Reason For Visit: Shortness of breath Hospital Course Hospital Course: Very pleasant 79-year-old gentleman with history of systolic CHF, COPD, CAD, aortic stenosis, pulmonary hypertension, DM 2, BPH and other medical conditions was admitted for assessment of management after presenting with shortness of breath, with finding of congestive heart failure, COPD and exacerbation, with acute anemia, elevated troponin and acute kidney injury. He received treatment with diuresis, antibiotic for COPD suppression suspected pneumonia, also treated with prednisone, breathing treatments. He is chronically on 3 L oxygen at home and his oxygenation has gradually improved. His diuresis was complicated by acute kidney injury with significant proteinuria. He was assessed by cardiology and nephrology, with concern expressed for possible cardiorenal syndrome secondary to CHF and aortic stenosis. With concern for possible bladder outflow obstruction, Flomax dose was increased, although postvoid residuals showed 20-70 mL. He received 1 unit PRBC transfusion, with finding of positive Hemoccult, has been maintained on PPI, and steroids have been tapered down. H. pylori serology negative. Anemia suspected to steroid-induced gastritis, and in the past he used to take quite a bit of ibuprofen, although not recently. In case of persistent dyspepsia, or recurrent anemia may benefit from additional evaluation by endoscopy as discussed with him. He has done well with regards to improvement in his breathing. He completed his course of antibiotic. He has had persistent fluid overload, severe lower extremity edema, diuresed with IV Lasix, metolazone. Continue 40 mg twice daily Lasix and metolazone once a day on discharge due to still residual significant edema. He was started on an ARB with creatinine remaining stable. He is at high risk of renal deterioration, and so we will request close follow-up with his contact lens inspector Dr. Orozco. He will follow-up with cardiology in office regarding additional work-up for management of aortic stenosis. Physical Exam Const: COMMON NORMALS: no apparent distress and oriented x3 OTHER: Pleasant, in good spirits. HENMT: COMMON NORMALS: oropharynx normal Neck/C-Spine: COMMON NORMALS: no JVD Resp: COMMON NORMALS: normal respiratory effort and clear to auscultation bilaterally AUSCULTATION: clear to auscultation bilaterally Cardio: COMMON NORMALS: no JVD, regular rhythm, S1 normal heart sound, S2 normal heart sound and no murmurs RHYTHM: regular rhythm HEART SOUNDS: S1 normal and S2 normal GI: COMMON NORMALS: normal to inspection, nondistended, normoactive bowel sounds, soft to palpation and non-tender PALPATION: Yes soft Extremity: COMMON NORMALS: no joint enlargement GENERAL: Yes edema (2-3+ lower extremity edema persistent) Neuro: COMMON NORMALS: oriented x3 and moves all extremities Skin: COMMON NORMALS: no rashes or lesions noted GENERAL SKIN EXAM: no rashes or lesions noted Discharge Data Data Completed and Pending: Completed Studies During Hospitalization Category Date Time Status XR chest 1V leo ble 54811 Stat Exams 08/22/19 11:32 Completed CV echo complete* [id number] Routine Ultrasound 08/22/19 15:30 Completed US renal BI with bladder Routine Ultrasound 08/24/19 08:56 Completed Labs from last 24 hours 09/01/19 09/01/19 09/01/19 13:30 06:25 04:24 WBC RBC Hgb Hct MCV MCH MCHC RDW Plt Count MPV Neut % (Auto) Lymph % (Auto) [place] % (Auto) Eos % (Auto) Baso % (Auto) Neut # (Auto) Lymph # (Auto) [place] # (Auto) Eos # (Auto) Baso # (Auto) Nucleated RBC % (a uto) Nucleated RBCs # Sodium 140 Potassium 3.6 Chloride 97 L Carbon Dioxide 34 H Anion Gap 12.6 BUN 57 H Creatinine 2.1 H Glucose 160 H POC Glucose 308 142 Calcium 9.3 Phosphorus 4.3 Magnesium 2.1 Total Bilirubin 0.5 AST 15 ALT 21 Alkaline Phosphata se 80 Total Protein 6.1 L Albumin 2.7 L Globulin 3.4 09/01/19 08/31/19 08/31/19 04:24 21:46 21:19 WBC 16.0 H RBC 3.14 L Hgb 9.2 L Hct 29.4 L MCV 93.6 MCH 29.3 MCHC 31.3 RDW 15.6 H Plt Count 284 MPV 10.6 H Neut % (Auto) 80.0 Lymph % (Auto) 6.4 [place] % (Auto) 9.7 Eos % (Auto) 2.7 Baso % (Auto) 0.1 Neut # (Auto) 12.8 H Lymph # (Auto) 1.0 [place] # (Auto) 1.6 H Eos # (Auto) 0.4 Baso # (Auto) 0.0 Nucleated RBC % (a uto) 0 Nucleated RBCs # 0.0 Sodium Potassium Chloride Carbon Dioxide Anion Gap BUN Creatinine Glucose 330 H POC Glucose 502 Calcium Phosphorus Magnesium Total Bilirubin AST ALT Alkaline Phosphata se Total Protein Albumin Globulin 08/31/19 21:07 WBC RBC Hgb Hct MCV MCH MCHC RDW Plt Count MPV Neut % (Auto) Lymph % (Auto) [place] % (Auto) Eos % (Auto) Baso % (Auto) Neut # (Auto) Lymph # (Auto) [place] # (Auto) Eos # (Auto) Baso # (Auto) Nucleated RBC % (a uto) Nucleated RBCs # Sodium Potassium Chloride Carbon Dioxide Anion Gap BUN Creatinine Glucose POC Glucose 404 Calcium Phosphorus Magnesium Total Bilirubin AST ALT Alkaline Phosphata se Total Protein Albumin Globulin Vitals: Last Vital Signs Temp 98.7 F 09/01/19 16:47 Pulse 87 09/01/19 16:47 Resp 20 H 09/01/19 16:47 BP 123/87 09/01/19 16:47 Pulse Ox 92 09/01/19 16:47 Discharge Plan Discharge Patient Disposition: Home, Self-Care Condition: Stable Prescriptions: New prednisone 5 mg Tablet 5 mg PO DAILY Qty: 3 RF: 0 metolazone 5 mg Tablet 5 mg PO DAILY Qty: 30 RF: 0 tamsulosin 0.4 mg Capsule 0.8 mg PO DAILY Qty: 60 RF: 0 pantoprazole 40 mg Tablet,Delayed Release (Dr/Ec) 40 mg PO BID Qty: 60 RF: 0 losartan 50 mg Tablet 25 mg PO DAILY Qty: 30 RF: 0 furosemide 40 mg Tablet 40 mg PO BID@08,16 Qty: 60 RF: 0 docusate sodium 100 mg Capsule 100 mg PO BID Qty: 60 RF: 0 calcitriol 0.25 mcg Capsule 0.25 mcg PO DAILY Qty: 30 RF: 0 metoprolol tartrate 50 mg tablet See Rx Instructions .ROUTE .COMPLEX Qty: 60 RF: 0 Continued Lipitor 40 mg Tablet 20 mg PO DAILY RF: 0 ipratropium-albuterol 0.5 mg-3 mg(2.5 mg base)/3 mL Solution For Nebulization 3 ml INHALATION QID RF: 0 Tylenol Extra Strength 500 mg Tablet 1,000 mg PO TID PRN (Reason: Pain) RF: 0 isosorbide mononitrate 120 mg Tablet Extended Release 24 Hr 120 mg PO DAILY RF: 0 ferrous sulfate 325 mg (65 mg iron) Tablet 325 mg PO DAILY RF: 0 ProAir HFA 90 mcg/actuation Hfa Aerosol Inhaler 2 puff INHALATION 6XD PRN (Reason: Shortness Of Breath) RF: 0 Symbicort 80-4.5 mcg/actuation Hfa Aerosol Inhaler 2 puff INHALATION BID RF: 0 Lantus Solostar U-100 Insulin 100 unit/mL (3 mL) Insulin Pen See Rx Instructions .ROUTE .COMPLEX RF: 0 Discontinued metolazone 2.5 mg Tablet 2.5 mg PO BID RF: 0 metoprolol tartrate 100 mg Tablet 50 mg PO BID RF: 0 tamsulosin [Flomax] 0.4 mg Capsule 0.4 mg PO DAILY RF: 0 pantoprazole [Protonix] 40 mg Tablet,Delayed Release (Dr/Ec) 40 mg PO DAILY RF: 0 bumetanide 1 mg Tablet See Rx Instructions .ROUTE .COMPLEX RF: 0 cholecalciferol (vitamin D3) [Vitamin D3] 2,000 unit Tablet 4,000 unit PO DAILY RF: 0 potassium chloride 20 mEq Tablet Extended Release 20 meq PO TID RF: 0 Discharge Orders: Discharge Order (Routine); Ordered 09/01/19 Ordered By: Ayo Perera Referrals: [facility] ([facility]) [Outside] Rakesh Orozco MD [Referring] - 1 week (please call Tuesday to set up a follow up appointment [place], CKD, proteinuria, CHF) Daniel Smalls MD [Physician] - 6 Weeks (please call Tuesday to set up a follow up appointment) Anton Pak DO [Primary Care Provider] - 4-7 days (please call Tuesday to set up a follow up appointment) Linda Santos FNP [Nurse Practitioner] - 1 week (please call Tuesday to set up a follow up appointment) Discharge Diet: Cardiac and Diabetic Discharge Activity: Increase activity as tolerated and Oxygen as instructed Activity Restrictions/Additional Instructions: Avoid NSAIDs as they may contribute to inflammation in her stomach, GI bleeding (medications like ibuprofen, Aleve, etc.). Continue oxygen at 3 L/min by nasal cannula. Goal saturation 88-92%. If you experience any decline in the amount of urine you are voiding, difficulty voiding, blood in your urine, increasing shortness of breath, increasing swelling, or other abnormal symptoms, please seek medical attention. Discharge Date/Time: 09/01/19 15:30 Discharge Attestations Time Spent in Discharge Care*: greater than 30 min Quality Metrics Clinical Quality Measures During this hospital stay, did patient experience: None Coding Level of Care Code Acute Electrical Maintenance Supervisor for Jennifer Tuttle Diagnoses Congestive heart failure with left ventricular systolic dysfunction I50.20 Acute kidney injury N17.9 Aortic stenosis I35.0 Coronary artery disease I25.10 Chronic renal disease N18.9 History of coronary artery bypass graft Z95.1
== END 2019-09-01 15:30 | disposition home or self-care (01) | DRG 291 ==
LOC: ER 14:09 → MEDSURG 14:38
PROVIDERS: Internal Medicine Nephrology; Student in an Organized Health Care Education/Training Program; Admitting Provider Internal Medicine; Emergency Provider Emergency Medicine; Family Provider Emergency Medicine Emergency Medical Services; PCP Emergency Medicine Emergency Medical Services; Visit Provider Internal Medicine
DX: I13.0 Hypertensive heart and chronic kidney disease with heart failure and stage 1 through stage 4 chronic kidney disease, or unspecified chronic kidney disease (principal); I50.23 Acute on chronic systolic (congestive) heart failure; J18.9 Pneumonia, unspecified organism; J44.0 Chronic obstructive pulmonary disease with (acute) lower respiratory infection; J44.1 Chronic obstructive pulmonary disease with (acute) exacerbation; N17.9 Acute kidney failure, unspecified; N18.3 Chronic kidney disease, stage 3 (moderate); E11.22 Type 2 diabetes mellitus with diabetic chronic kidney disease; N40.1 Benign prostatic hyperplasia with lower urinary tract symptoms; R39.14 Feeling of incomplete bladder emptying; D50.9 Iron deficiency anemia, unspecified; E11.21 Type 2 diabetes mellitus with diabetic nephropathy; K59.00 Constipation, unspecified; I25.10 Atherosclerotic heart disease of native coronary artery without angina pectoris; M19.90 Unspecified osteoarthritis, unspecified site; K21.9 Gastro-esophageal reflux disease without esophagitis; E78.5 Hyperlipidemia, unspecified; I35.0 Nonrheumatic aortic (valve) stenosis; I27.20 Pulmonary hypertension, unspecified; Z95.1 Presence of aortocoronary bypass graft; Z87.891 Personal history of nicotine dependence; Z99.81 Dependence on supplemental oxygen; J84.10 Pulmonary fibrosis, unspecified; Z79.51 Long term (current) use of inhaled steroids; K29.70 Gastritis, unspecified, without bleeding; T38.0X5A Adverse effect of glucocorticoids and synthetic analogues, initial encounter
CPT/HCPCS: 12345; 36415; 36416; 36430; 51798; 71045; 76770; 76857; 80048; 80053; 81001; 82274; 82310; 82550; 82570; 82607; 82728; 82746; 82947; 82962; 83540; 83550; 83735; 83880; 83970; 84100; 84156; 84300; 84443; 84484; 85025; 86677; 86850; 86900; 87338; 90935; 93005; 93306; 94640; 96372; 96375; 97110; 97116; 97161; 99283; J1650; J1756; J1815; J1940; J1956; J2916; J7512; J7626; P9016; Q3014

== ENCOUNTER 2019-09-02 13:13 | Inpatient (IN) | payer OTHER, SELFPAY ==
[2019-09-02] VITALS (12 sets, daily range): BP systolic 76–157; BP diastolic 54–85; PULSE 87–148; RESP 14–21; TEMP 36.6–37.2; O2SAT 89–100; BMI 35.9
--- NOTE | 2019-09-02 13:15 | ED_ITS ---
Entered by Luca Trammell, acting as scribe for Dallin Alejo MD HPI - Chest Pain General: Chief Complaint: Chest Pain Stated Complaint: A-fib, Weakness Time Seen by Provider: 09/02/19 13:18 History of Present Illness: HPI narrative: 79 yo male presents with chest pain and weakness. Pt states that he is weak and nauseous. Pt was discharged from the hospital yesterday, pt was admitted for difficulty breathing. Pt states that he started feeling weak this morning. MD complaint: chest pain Associated symptoms: Reports dyspnea, nausea and other (weakness); Deny abdominal pain, fever(s) or vomiting Review of Systems Const: Denies: fever, chills, body aches or change in appetite Eyes: Denies: blurry vision or eye discomfort ENMT: Denies: throat pain or dental pain Card: Denies: chest pain Resp: Reports: shortness of breath GI: Reports: nausea; Denies: abdominal pain, vomiting or diarrhea : Denies: painful urination Musc: Denies: neck pain or back pain Skin/Breast: Denies: rash Neuro: Denies: headache Psych: Denies: depression Cuate/Lymph: Denies: easy bruising All/Imm: Denies: hives PFSH ED PFSH: Medical History Anemia BPH (benign prostatic hyperplasia) Central retinal vein occlusion Chronic kidney disease, stage III (moderate) Congestive heart failure with left ventricular systolic dysfunction Constipation COPD (chronic obstructive pulmonary disease) Coronary artery disease DJD (degenerative joint disease) GERD (gastroesophageal reflux disease) Hyperlipidemia Moderate aortic valve stenosis Pulmonary hypertension Type 2 diabetes mellitus Surgical History History of appendectomy History of back surgery History of coronary artery bypass graft History of hernia repair History of neck surgery History of transurethral resection of prostate Social History Smoking and tobacco status: former smoker Alcohol intake: never Physical Exam Const: COMMON NORMALS: no apparent distress, oriented x3 and healthy appearing HENMT: COMMON NORMALS: normocephalic and head/scalp atraumatic HEAD & SCALP: normocephalic and atraumatic Eye: COMMON NORMALS: PERRL and EOMs intact bilaterally PUPIL: Yes PERRL Neck/C-Spine: COMMON NORMALS: full ROM and supple Chest: COMMONS NORMALS: inspection of chest normal and palpation of chest normal Resp: COMMON NORMALS: normal respiratory effort, no retractions, no use of accessory muscles and clear to auscultation bilaterally AUSCULTATION: clear to auscultation bilaterally Cardio: RATE: tachycardic RHYTHM: abnormal rhythm GI: COMMON NORMALS: normal to inspection, nondistended, normoactive bowel sounds, soft to palpation, non-tender and no masses PALPATION: Yes soft Extremity: COMMON NORMALS: normal to inspection and full ROM Neuro: COMMON NORMALS: oriented x3, moves all extremities and no focal motor deficits Psych: COMMON NORMALS: mental status grossly normal, thought process normal and cooperative THOUGHT PROCESS: normal thought process Skin: COMMON NORMALS: no rashes or lesions noted and no wounds GENERAL SKIN EXAM: no rashes or lesions noted Course Vital Signs: Vital signs: Vital Signs Pulse Rate 89 09/02/19 15:30 Respiratory Rate 16 09/02/19 15:30 Blood Pressure 141/81 09/02/19 15:30 Pulse Oximetry 98 09/02/19 15:30 MDM - Chest Pain MDM Narrative: Medical decision making narrative: Patient presents here with A. fib with RVR converted on its own here. His blood pressures improved greatly after that as well. He has had no pain here. His repeat troponin did increase by 700. Patient has a possible N STEMI versus elevated troponin from his A. fib. I spoke to hospitalist and will admit. Patient started on heparin. Lab Data: Labs: Lab Results 09/02/19 09/02/19 09/02/19 Range/Units 13:24 13:24 13:24 WBC 16.9 H (4.0-10.0) 10^3/ uL RBC 3.21 L (4.1-5.3) 10^6/u L Hgb 9.4 L (11.7-16.6) g/dL Hct 30.8 L (42.0-52.0) % MCV 96.0 H (80-94) fL MCH 29.3 (28.0-34.0) pg MCHC 30.5 (30.0-36.0) g/dL RDW 15.7 H (12.1-15.1) % Plt Count 282 (130-400) 10^3/c mm MPV 11.1 H (7.4-10.4) fL Neut % (Auto) 86.9 % Lymph % (Auto) 3.0 % [place] % (Auto) 7.3 % Eos % (Auto) 1.2 % Baso % (Auto) 0.1 % Neut # (Auto) 14.7 H (1.8-7.7) 10^3/u L Lymph # (Auto) 0.5 L (0.8-4.8) 10^3/u L [place] # (Auto) 1.2 H (0.2-0.9) 10^3/u L Eos # (Auto) 0.2 (0.0-0.8) 10^3/u L Baso # (Auto) 0.0 (0.0-0.1) 10^3/u L Nucleated RBC % (a uto) 0 % Nucleated RBCs # 0.0 /100WBC Sodium 136 (136-145) mmol/L Potassium 4.4 (3.5-5.1) mmol/L Chloride 92 L (98-107) mmol/L Carbon Dioxide 29 (22-29) mmol/L Anion Gap 19.4 H (5-19) BUN 63 H (8-23) mg/dL Creatinine 2.8 H (0.7-1.2) mg/dL Glucose 382 H (65-115) mg/dL Calcium 9.0 (8.5-10.5) mg/dL Total Bilirubin 0.4 (0.15-1.2) mg/dL AST 22 (0-40) U/L ALT 21 (0-41) U/L Alkaline Phosphata se 93 (40-130) IU/L Troponin T Baselin e 282 H* (0-15) ng/mL Troponin T 120 Min [place] (0-15) ng/mL Delta Troponin T (0-10) ABS# NT-Pro-B Natriuret Pep 85126 H (0-450) pg/mL Total Protein 5.5 L (6.6-8.7) g/dL Albumin 3.3 L (3.5-5.2) g/dL Globulin 2.2 (1.3-4.6) g/dL 09/02/19 Range/Units 15:29 WBC (4.0-10.0) 10^3/ uL RBC (4.1-5.3) 10^6/u L Hgb (11.7-16.6) g/dL Hct (42.0-52.0) % MCV (80-94) fL MCH (28.0-34.0) pg MCHC (30.0-36.0) g/dL RDW (12.1-15.1) % Plt Count (130-400) 10^3/c mm MPV (7.4-10.4) fL Neut % (Auto) % Lymph % (Auto) % [place] % (Auto) % Eos % (Auto) % Baso % (Auto) % Neut # (Auto) (1.8-7.7) 10^3/u L Lymph # (Auto) (0.8-4.8) 10^3/u L [place] # (Auto) (0.2-0.9) 10^3/u L Eos # (Auto) (0.0-0.8) 10^3/u L Baso # (Auto) (0.0-0.1) 10^3/u L Nucleated RBC % (a uto) % Nucleated RBCs # /100WBC Sodium (136-145) mmol/L Potassium (3.5-5.1) mmol/L Chloride (98-107) mmol/L Carbon Dioxide (22-29) mmol/L Anion Gap (5-19) BUN (8-23) mg/dL Creatinine (0.7-1.2) mg/dL Glucose (65-115) mg/dL Calcium (8.5-10.5) mg/dL Total Bilirubin (0.15-1.2) mg/dL AST (0-40) U/L ALT (0-41) U/L Alkaline Phosphata se (40-130) IU/L Troponin T Baselin e (0-15) ng/mL Troponin T 120 Min [place] 990.6 H (0-15) ng/mL Delta Troponin T 708.6 H* (0-10) ABS# NT-Pro-B Natriuret Pep (0-450) pg/mL Total Protein (6.6-8.7) g/dL Albumin (3.5-5.2) g/dL Globulin (1.3-4.6) g/dL Imaging Data^: CXR: Radiologist's impression: XRay Report Signed Patient: Bakari Crabtree Unit #: [id number] : 1940 Age/Sex: 79 / M ADM Date: 09/02/19 Loc: ER Room/Bed: Attending Dr: Ordering Provider/Ordering MD: Dallin Alejo MD Date of Service: 09/02/19 Procedure(s): XR chest 1V portable [id number] Accession Number(s): [id number] Report Number: [id number] WS: [id number] XR chest 1V portable [id number] REASON FOR EXAM: cp FINDINGS: Clearing of the interstitial edema previously described on August 22, 2019. The heart is slightly smaller. Sternotomy changes and coronary bypass changes. There is left pleural effusion. XR/XR chest 1V portable [id number] IMPRESSION: Small amount of left pleural effusion Resolved pulmonary edema The heart is smaller with coronary bypass changes. EKG Data^: EKG 1: Attestation: I personally reviewed and interpreted this EKG as follows: EKG interpretation date: 09/02/19 EKG interpretation time: 13:27 Interpretation: afib with rvr hr 138 with no s or t wave abnormalities qrs 157 qtc 413 EKG 2: Attestation: I personally reviewed and interpreted this EKG as follows: EKG interpretation date: 09/02/19 EKG interpretation time: 16:26 Interpretation: Normal sinus rhythm heart rate 90 right bundle branch block with no ST or T wave abnormalities QRS 164 QTc 456 Discharge Plan Discharge Patient Disposition: Admitted As Inpatient Admit Provider: Alexia Tidwell Clinical Impression: Non-ST elevation MS (NSTEMI) A-fib Qualifiers: Atrial fibrillation type: unspecified Qualified Code(s): I48.91 - Unspecified atrial fibrillation Condition: Stable Referrals: Anton Pak DO [Primary Care Provider] - Discharge Date/Time: 09/02/19 17:03 Coding Level of Care Code ED Gastrointestinal Technician for Chg Fwd Exam Comprehensive The documentation recorded by the Jp salas Kialy, accurately reflects the service I personally performed and the decisions made by Sapna car Korby, MD Sep 02, 2019 13:13
[2019-09-02] MEDS: sodium chloride 0.9% 500 ML 999 ML IV (13:27)
--- NOTE | 2019-09-02 13:27 | ECG_ITS ---
Measurements Intervals [place] Rate: 111 P: MN: 0 QRS: 160 QRSD: 158 T: 7 QT: 351 QTc: 479 POSSIBLY SINUS TACHYCARDIA WITH PAC'S INDETERMINATE AXIS RIGHT BUNDLE BRANCH BLOCK LEFT POSTERIOR FASCICULAR BLOCK Compared to ECG 08/31/2019 07:32:49 Left posterior fascicular block now present Sinus rhythm no longer present Electronically Signed On 09-03-2019 21:22:39 PRICING MANAGER by Aviva Carrera M.D. [id number]
--- NOTE | 2019-09-02 13:27 | XR_ITS ---
WS: [id number] XR chest 1V portable [id number] REASON FOR EXAM: cp FINDINGS: Clearing of the interstitial edema previously described on August 22, 2019. The heart is slightly smaller. Sternotomy changes and coronary bypass changes. There is left pleural effusion. XR/XR chest 1V portable [id number] IMPRESSION: Small amount of left pleural effusion Resolved pulmonary edema The heart is smaller with coronary bypass changes.
[2019-09-02 13:37] LABS: Basophils % 0.1 %; Eosinophils # 0.2 10^3/uL (0.0-0.8); Eosinophils % 1.2 %; Hematocrit 30.8 % (42.0-52.0); Hemoglobin 9.4 g/dL (11.7-16.6); Lymphocytes # 0.5 10^3/uL (0.8-4.8); Mean Corpuscular HGB Conc 30.5 g/dL (30.0-36.0); Mean Corpuscular Hemoglobin 29.3 pg (28.0-34.0); Mean Platelet Volume 11.1 fL (7.4-10.4); Monocytes # 1.2 10^3/uL (0.2-0.9); Monocytes % 7.3 %; Neutrophils # 14.7 10^3/uL (1.8-7.7); Neutrophils % 86.9 %; Nucleated Red Blood Cells % 0 %; Platelet Count 282 10^3/cmm (130-400); Red Blood Count 3.21 10^6/uL (4.1-5.3); Red Cell Distribution Width 15.7 % (12.1-15.1); White Blood Count 16.9 10^3/uL (4.0-10.0)
[2019-09-02 14:37] LABS: Troponin(5th) Baseline 282 ng/mL (0-15)
[2019-09-02 14:40] LABS: Alanine Aminotransferase 21 U/L (0-41); Albumin Level 3.3 g/dL (3.5-5.2); Alkaline Phosphatase 93 IU/L (40-130); Anion Gap 19.4 (5-19); Aspartate Amino Transferase 22 U/L (0-40); Blood Urea Nitrogen 63 mg/dL (8-23); Carbon Dioxide 29 mmol/L (22-29); Chloride 92 mmol/L (98-107); Globulin 2.2 g/dL (1.3-4.6); Glucose 382 mg/dL (65-115); NT Pro B Type Natriuretic Pept 14689 pg/mL (0-450); Potassium 4.4 mmol/L (3.5-5.1); Sodium 136 mmol/L (136-145); Total Bilirubin 0.4 mg/dL (0.15-1.2); Total Protein 5.5 g/dL (6.6-8.7)
--- NOTE | 2019-09-02 15:26 | PC.NURSE ---
EMD at bedside to update patient
--- NOTE | 2019-09-02 15:27 | ECG_ITS ---
Measurements Intervals [place] Rate: 90 P: 50 [place]: 206 QRS: 204 QRSD: 164 T: 23 QT: 408 QTc: 501 SINUS RHYTHM WITH SINUS ARRHYTHMIA POSSIBLE LEFT ATRIAL ENLARGEMENT [-0.1mV P WAVE IN V1/V2] INDETERMINATE AXIS RIGHT BUNDLE BRANCH BLOCK [120+ ms QRS DURATION, UPRIGHT V1, 40+ ms S IN I/a I/aVL/V4/V5/V6] LEFT POSTERIOR FASCICULAR BLOCK [QRS AXIS > 109, INFERIOR Q] Compared to ECG 08/31/2019 07:32:49 Left posterior fascicular block now present Electronically Signed On 09-03-2019 15:40:47 PROPELLER INSPECTOR by Aviva Carrera M.D. [id number]
--- NOTE | 2019-09-02 15:59 | PC.NURSE ---
Short run of A-rib RVR (rate 150) lasting 5 seconds recorded. This was scanned to chart
[2019-09-02 16:16] LABS: Troponin 5 2HR 990.6 ng/mL (0-15); Troponin 5 2HR Delta 708.6 ABS# (0-10)
--- NOTE | 2019-09-02 16:16 | PC.NURSE ---
Love in lab calls to report a 2 hour trop of 990.6 and 2 hour delta of 708.6.
[2019-09-02] MEDS: heparin drip 25,000 UNIT/500 ML PREMIX 20 UNIT IV (16:47)
[2019-09-02] MEDS: heparin drip 25,000 UNIT/500 ML PREMIX 27.2 UNIT IV (18:03)
--- NOTE | 2019-09-02 18:12 | P.HP_ITS ---
Providers/Chief Complaint Admitting Physician: Alexia Tidwell MD Primary Care Provider: Anton Pak DO Chief Complaint: Generalized weakness, dizziness History of Present Illness Bakari Crabtree is a 79 year old male with PMHx of CAD s/p 5-vessel CABG, COPD, HTN, Hyperlipidemia, CKD stage 3-4, Chronic normocytic anemia, IDDM type II, Moderate to severe aortic stenosis; presents accompanied by his and daughter for evaluation of dizziness, generalized weakness and difficulty ambulating noted earlier today. Patient was discharged from our facility yesterday following a 10-day stay during which time he was treated for acute COPD exacerbation, acute CHF exacerbation, acutely worsening anemia and acute kidney injury. Is oxygen dependent at baseline with a 3 L requirement. He had work-up done during his last admission including echo which showed an ejection fraction of 55% with grade 2 diastolic dysfunction and noted moderate to severe aortic stenosis. He was evaluated by Dr. Smalls with plan for outpatient follow- up. He was also seen by nephrology due to his acutely worsening renal function and was to follow-up with Dr. Orozco on an outpatient basis. Patient did require transfusion of 1 unit of PRBCs during his admission. Per his he seems to be doing well on the arrival home yesterday, patient was able to take a shower with some noted difficulty getting in and out of the shower but with otherwise no other noted difficulties. She had gone to [employer]oroast[employer] earlier this morning and upon her return home she found her in the bathroom, sitting on the toilet unable to get up due to dizziness and weakness in his bilateral lower extremities. She called her granddaughter who is a nursing school who recommended calling for an ambulance as she was unable to get him up on her own. It seems that patient was noted to be in A. fib upon EMS arrival so was brought to the hospital for further evaluation. had checked his blood pressure at home and states that it was 64/38. Upon his arrival in the ER he was noted to be in continued A. fib with RVR, heart rates in the 160s. He converted to a normal sinus rhythm spontaneously. Blood pressure was in the 70s systolic. Further work-up indicates leukocytosis with a white count of 16.9, hemoglobin of 9.4, BUN of 63, creatinine of 2.8, blood glucose of 382, elevated troponin levels with a noted delta greater than 700, BNP greater than 14,000 which is about double what it was during his last admission. Chest x-ray shows a small left pleural effusion but resolved pulmonary edema. ER physician contacted Dr. Smalls who had seen patient during his last admission and he recommended initiati on of a heparin drip and will see the patient for formal consultation tomorrow. Patient seen on his arrival to the floor with and daughter at bedside. He does not appear to be in any distress, currently rate controlled with heart rate in the 90s, normal sinus rhythm. Blood pressures about 141/81. Heparin drip is running. Patient is quite hard of hearing so some collateral information obt ained from family and additional information from review of medical record. I confirmed with the patient and family that they have been no changes made to his medications since he was just discharged from our facility yesterday. He does have some lower extremity edema which states is better than previously noted and he does have some element of chronic lower extremity edema at baseline. He has had difficulty urinating at home and has only had a small amount of output. Denies having had any chest pain or discomfort, syncope, vomiting, abdominal pain. He did have some nausea. notes that he has significant difficulty ambulating due to weakness in his legs. Confirmed code status is DNR/DNI. Patient is being admitted for further work-up and management of NSTEMI as well as for IV diuresis secondary to acute CHF exacerbation. Review of Systems Const: Denies: fever or chills Eyes: Denies: change in vision ENMT: Denies: painful swallowing Card: Reports: edema, swelling of feet/ankles and shortness of breath on exertion; Denies: chest pain, palpitations, lightheadedness, syncope or pre-syncope Resp: Reports: shortness of breath and productive cough (brown sputum) GI: Reports: nausea; Denies: abdominal pain, vomiting, vomiting blood or blood in stool : Reports: difficulty urinating and urinary hesitancy; Denies: painful urination or urinary frequency Musc: Denies: back pain Skin/Breast: Denies: rash Neuro: Reports: weakness in extremities, difficulty walking and dizziness; Denies: numbness in extremities Psych: Reports: visual hallucinations (intermittent); Denies: anxiety Medications/Allergies Allergies Allergy/AdvReac Type Severity Reaction Status Date / Time No Known Allergies Allergy Verified 08/22/19 11:12 PFSH Acute PFSH: Medical History Anemia BPH (benign prostatic hyperplasia) Central retinal vein occlusion Chronic kidney disease, stage III (moderate) Congestive heart failure with left ventricular systolic dysfunction Constipation COPD (chronic obstructive pulmonary disease) Coronary artery disease DJD (degenerative joint disease) GERD (gastroesophageal reflux disease) Hyperlipidemia Moderate aortic valve stenosis Pulmonary hypertension Type 2 diabetes mellitus Surgical History History of appendectomy History of back surgery History of coronary artery bypass graft History of hernia repair History of neck surgery History of transurethral resection of prostate Family History Other Stroke Social History (Updated 09/02/19 @ 18:15 by Alexia Tidwell MD) Smoking and tobacco status: former smoker Alcohol intake: never Substance/Drug Use: never Lives independently: Yes Household members: spouse Vitals/I&O/Wt Last Vital Signs Temp 97.8 F 09/02/19 17:45 Pulse 91 09/02/19 17:45 Resp 21 H 09/02/19 17:45 BP 136/80 09/02/19 17:45 Pulse Ox 98 09/02/19 17:45 Weight last 48 hrs Weight 113.398 kg Physical Exam Const: COMMON NORMALS: no apparent distress and oriented x3 GENERAL APPEARANCE: cooperative and comfortable NUTRITIONAL APPEARANCE: obese morbidly obese ORIENTATION/CONSCIOUSNESS: Yes awake HENMT: COMMON NORMALS: normocephalic, head/scalp atraumatic and moist oral mucous membranes HEAD & SCALP: normocephalic and atraumatic GENERAL EAR: hearing grossly impaired Eye: COMMON NORMALS: PERRL, EOMs intact bilaterally and conjunctivae normal CONJUNCTIVA: Yes conjunctivae normal PUPIL: Yes PERRL Neck/C-Spine: COMMON NORMALS: full ROM GENERAL: Yes normal visual inspection and Yes trachea midline Resp: COMMON NORMALS: normal respiratory effort, no retractions and no use of accessory muscles EFFORT & INSPECTION: Yes able to speak in complete sentences, Yes symmetric chest movement and No tachypneic AUSCULTATION: crackles Laterality: left and diminished lung sounds OTHER: -on 3 L NC Cardio: COMMON NORMALS: regular rate, regular rhythm, S1 normal heart sound and S2 normal heart sound RATE: regular rate RHYTHM: regular rhythm HEART SOUNDS: S1 normal, S2 normal and murmur systolic GI: COMMON NORMALS: normal to inspection, nondistended, normoactive bowel sounds, soft to palpation and non-tender INSPECTION: No abdominal distension and Yes central obesity PALPATION: Yes soft Back/Pelvis: COMMON NORMALS: thoracic and lumbar spine normal to inspection Extremity: COMMON NORMALS: normal to inspection, full ROM and no pedal edema GENERAL: Yes edema (2+ pitting edema of bilateral LEs) OTHER: - Neuro: COMMON NORMALS: oriented x3, moves all extremities, no focal motor deficits and no sensory deficits noted Psych: COMMON NORMALS: mental status grossly normal, thought process normal, cooperative, affect normal and speech normal SPEECH: Yes normal speech THOUGHT PROCESS: normal thought process Skin: COMMON NORMALS: no rashes or lesions noted, no jaundice, no petechiae and no mottling GENERAL SKIN EXAM: no rashes or lesions noted OTHER: - chronic venous stasis dermatitis Data : 09/02/19 13:24 09/02/19 13:24 A&P Assessment and plan (1) Non-ST elevation AR (NSTEMI): -noted elevation of gen 5 troponins with delta > 700, significantly higher than previously noted -telemetry monitoring -started on heparin drip -resume statin, BB, start on aspirin; monitor for bleeding as has known anemia -has not had any chest pain/discomfort -could be related to atrial fibrillation, CHF exacerbation -Dr. Smalls contacted by ED, will see patient in ED -Echo done during most recent admission: EF=55%, G2DD, moderate to severe , trace MR, mild AR -had prior cath done in 07/2018 showing severe 3-vessel CAD, all grafts patent Status: Acute Code(s): I21.4 - Non-ST elevation (NSTEMI) myocardial infarction (2) Congestive heart failure: -has acute on chronic diastolic CHF exacerbation as evidenced by elevated BNP (14,689), LE edema (some of which is chronic), fluid overload on imaging -Echo done during most recent admission: EF=55%, G2DD, moderate to severe , trace MR, mild AR -IV diuresis with Bumex due to renal impairment; hold Lasix and Metolazone -daily weights, monitor Is & Os -monitor renal function, lytes with diuresis Status: Acute Qualifiers: Heart failure chronicity: acute on chronic Heart failure type: diastol ic Qualified Code(s): I50.33 - Acute on chronic diastolic (congestive) heart failure Code(s): I50.9 - Heart failure, unspecified (3) A-fib: -appears to be new onset, no mention of arrhythmia during most recent admission -telemetry monitoring -converted to NSR spontaneously -monitor vital signs -could have been triggered by CHF exacerbation Status: Acute Qualifiers: Atrial fibrillation type: unspecified Qualified Code(s): I48.91 - Unspecified atrial fibrillation Code(s): I48.91 - Unspecified atrial fibrillation (4) Aortic stenosis: -has known moderate to severe aortic stenosis per Echo done last week Status: Acute Qualifiers: Cardiac valve disease etiology: nonrheumatic Qualified Code(s): I35.0 - Nonrheumatic aortic (valve) stenosis Code(s): I35.0 - Nonrheumatic aortic (valve) stenosis (5) Coronary artery disease: -has known CAD s/p 5-vessel CABG -resume statin, long acting nitrate Status: Acute Qualifiers: Coronary Disease-Associated Artery/Lesion type: unspecified vessel or lesion type [place] vs. 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 peripheral neuropathy -check A1c in AM -accucheks, ISS, hypoglycemia precautions Status: Acute Qualifiers: Diabetes mellitus senior living insulin use: with termination clerk use Diabetes mellitus complication status: with kidney complications Diabetes mellitus complication detail: with chronic kidney disease Chronic kidney disease stage: stage 3 (moderate) Qualified Code(s): E11.22 - Type 2 diabetes mellitus with diabetic chronic kidney disease; N18.3 - Chronic kidney disease, stage 3 (moderate); Z79.4 - senior care (current) use of insulin Code(s): E11.9 - Type 2 diabetes mellitus without complications (8) Acute kidney injury: -has NORMAN on CKD stage 3-4; baseline Cr is around 1.8-2.0 -avoid nephrotoxins, renally dose meds -renal US done 08/24 was negative -monitor urine output -was evaluated by Nephrology during last admission -on low dose ACEi, continue with caution Status: Acute Code(s): N17.9 - Acute kidney failure, unspecified Additional A&P Information -Morbid obesity: BMI-36 kg/m2 -HTN -Hyperlipidemia; on statin -GERD -Chronic normocytic anemia; on iron replacement, received 1 unit PRBCs during last admission. Has had GI workup in 04/2019 with EGD and colonoscopy; gastric ulcers and moderate diverticulosis and removal of sessile polyps respectively. Baseline Hg was previously 12, now seems to be 9-10. Monitor H/H with anticoagulation -Oxygen dependent COPD; 3 L NC at baseline; no acute exacerbation currently -SCOOTER -Generalized weakness, deconditioning: PT evaluation, ambulates with walker -Hard of hearing chronically -resume home meds as appropriate -GI ppx with PPI -DVT ppx not needed as on heparin drip -Dispo: home with continued HH services though with deconditioning and generalized weakness may need SNF -Code status: DNR/DNI Attestations Medical Necessity Statement*: Bakari Crabtree's hospital stay will require greater than 2 midnights for management of NSTEMI, on heparin drip pending cardiology evaluation, telemetry monitoring given new onset atrial fibrillation, IV diuresis for acute CHF exacerbation. Time Spent in Patient Care: Greater than 35 minutes (>than 50% of time spent in counselling and/or direct pt care on unit) . Coding Level of Care Code Acute Mud Grinder for g Fwd Diagnoses Non-ST elevation AR (NSTEMI) I21.4 Congestive heart failure I50.33 Heart failure chronicity: acute on chronic Heart failure type: diastolic A-fib I48.91 Atrial fibrillation type: unspecified Aortic stenosis I35.0 Cardiac valve disease etiology: nonrheumatic Coronary artery disease I25.10 Coronary Disease-Associated Artery/Lesion type: unspecified vessel or lesion type [place] vs. transplanted heart: [place] heart Associated angina: angina presence unspecified Hyperlipidemia E78.5 Hyperlipidemia type: unspecified Type 2 diabetes mellitus E11.22; N18.3; Z79.4 Diabetes mellitus senior living insulin use: with termination clerk use Diabetes mellitus complication status: with kidney complications Diabetes mellitus complication detail: with chronic kidney disease Chronic kidney disease stage: stage 3 (moderate) Acute kidney injury N17.9
[2019-09-02] MEDS: bumetanide 0.25 mg/mL SDV 10 mL 1 MG IV (18:52)
[2019-09-02] MEDS: aspirin 325 mg EC Tablet PO (18:52)
--- NOTE | 2019-09-02 19:27 | ECG_ITS ---
Measurements Intervals [place] Rate: 89 P: 50 NC: 206 QRS: 259 QRSD: 169 T: 22 QT: 411 QTc: 500 SINUS RHYTHM POSSIBLE LEFT ATRIAL ENLARGEMENT [-0.1mV P WAVE IN V1/V2] INDETERMINATE AXIS RIGHT BUNDLE BRANCH BLOCK [120+ ms QRS DURATION, UPRIGHT V1, 40+ ms S IN I/aVL/V4/V5/V6] Compared to ECG 08/31/2019 07:32:49 No significant changes Electronically Signed On 09-03-2019 15:39:09 PRODUCT DEVELOPMENT ENGINEER by Aviva Carrera M.D. [id number]
[2019-09-02 20:10] LABS: Troponin 5 6HR 2783 ng/mL (0-15); Troponin 5 6HR Delta 2501 ng/L (0-12)
[2019-09-02 20:57] LABS: Glucose Point of Care 290 mg/dL (70-110)
[2019-09-02] MEDS: atorvastatin 40 mg Tablet PO (21:31)
[2019-09-02 23:10] LABS: Partial Thromboplastin Time 100.9 SECONDS (23.9-36.7)
--- NOTE | 2019-09-02 23:21 | PC.NURSE ---
Current ptt at 100.9. Heparin gtt at 27.2ml/hr. Decreased heparin gtt by 3ml/hr to current rate of 24.2ml/hr as per protocol. Verified dose and change with Shelbie Bansal RN.
--- NOTE | 2019-09-02 23:58 | ECG_ITS ---
Measurements Intervals [place] Rate: 143 P: 252 MO: 118 QRS: 198 QRSD: 159 T: 0 QT: 219 QTc: 338 POSSIBLE ATRIAL FLUTTER RIGHT AXIS DEVIATION RIGHT BUNDLE BRANCH BLOCK AND POSSIBLE RIGHT VENTRICULAR HYPERTROPHY ST DEPRESSION, CONSIDER SUBENDOCARDIAL INJURY Compared to ECG 08/31/2019 07:32:49 ST (T wave) deviation now present Sinus rhythm no longer present Indeterminate axis no longer present Electronically Signed On 09-03-2019 20:56:18 LIQUID HYDROGEN PLANT OPERATOR by Aviva Carrera M.D. [id number]
[2019-09-03] VITALS (11 sets, daily range): BP systolic 104–159; BP diastolic 54–97; PULSE 59–145; RESP 15–21; TEMP 36.4–36.8; O2SAT 97–100
[2019-09-03] MEDS: metoprolol tartrate 1 mg/1 mL SDV 5 mL 5 MG IV ×2 (00:09→01:54)
--- NOTE | 2019-09-03 00:15 | PC.NURSE ---
Patient heart increased and sustained at 130s to 150s. Dr James was informed and came to floor to see patient. Received order to give 5mg IV Metoprolol now which has been given. Current heart rate at 130s. Patient denies any pain or discomforts at this time. Patient pleasant just would like to get some sleep. No other distress observed. Will continue to monitor
[2019-09-03] MEDS: metoprolol tartrate 1 mg/1 mL SDV 5 mL 2.5 MG IV (00:25)
[2019-09-03] MEDS: FUROsemide 10 mg/mL SDV 4mL 40 MG IVP (00:47)
--- NOTE | 2019-09-03 00:53 | PC.NURSE ---
Patient heart rate continues in the 140s to 170s. Dr James has been down to see patient. Orders were received. Started cardizem gtt at 10ml/hr and gave other medications as documented for heart rate. Patient continues to deny any discomforts at this time. No distress observed.
--- NOTE | 2019-09-03 02:47 | PC.NURSE ---
Patient converted to NSR with heart rate 59-62bpm.. Patient stated, I don't feel right. Patient unable to describe how he does feel. Denies pain, SOB, dizziness. No distress observed. Cardizem gtt off at 0230. Informed Dr James. Instructed patient again on medications to decrease heart rate. Patient verbalized complete understanding. Will continue to monitor.
--- NOTE | 2019-09-03 03:03 | PM.EVENT ---
Event Note Event Note: Called earlier this evening at ~8pm that patient's 6 hr troponin beckwith trended up to 2783 with delta 2501, remains on heparin drip, no current chest pain. Called at ~11:45 pm that patient's HR is now running between 140-160mmhg. Given metoprolol 5mg without any significant change, HR trending up to 170, remaining over the next 30min. Cardizem 10mg and then 15mg given ~45 min apart. Patient reports being asymptomatic, on exam with mild wheezing and infraaxillary rales. 02 sat 97%. Metoprolol 5mg repeated at ~2am for HR 160-170. Additional lasix 40mg given. Now converted to sinus rhythm @59bpm, Bp 104/55mmhg
[2019-09-03] MEDS: acetaminophen 325 mg Tablet 650 MG PO ×2 (03:26→15:58)
[2019-09-03] MEDS: bumetanide 0.25 mg/mL SDV 10 mL 1 MG IV ×2 (05:57→18:00)
[2019-09-03 06:02] LABS: Basophils % 0.2 %; Eosinophils # 0.3 10^3/uL (0.0-0.8); Hematocrit 29.2 % (42.0-52.0); Hemoglobin 8.8 g/dL (11.7-16.6); Lymphocytes # 0.8 10^3/uL (0.8-4.8); Lymphocytes % 4.5 %; Mean Corpuscular HGB Conc 30.1 g/dL (30.0-36.0); Mean Corpuscular Hemoglobin 28.6 pg (28.0-34.0); Mean Corpuscular Volume 94.8 fL (80-94); Mean Platelet Volume 11.3 fL (7.4-10.4); Monocytes # 1.8 10^3/uL (0.2-0.9); Monocytes % 10.4 %; Neutrophils # 14.2 10^3/uL (1.8-7.7); Nucleated Red Blood Cells % 0 %; Platelet Count 269 10^3/cmm (130-400); Red Blood Count 3.08 10^6/uL (4.1-5.3); Red Cell Distribution Width 15.7 % (12.1-15.1); White Blood Count 17.3 10^3/uL (4.0-10.0)
[2019-09-03 06:17] LABS: Glucose Point of Care 140 mg/dL (70-110)
[2019-09-03 06:22] LABS: Partial Thromboplastin Time 84.6 SECONDS (23.9-36.7)
[2019-09-03 06:25] LABS: Anion Gap 18.4 (5-19); Blood Urea Nitrogen 66 mg/dL (8-23); Calcium 9.3 mg/dL (8.5-10.5); Carbon Dioxide 29 mmol/L (22-29); Chloride 95 mmol/L (98-107); Glucose 134 mg/dL (65-115); Magnesium 2.1 mg/dL (1.7-2.3); Osmolality Calculated 289 mOsm/kg (285-295); Phosphorus 4.1 mg/dL (2.5-4.5); Potassium 3.4 mmol/L (3.5-5.1); Sodium 139 mmol/L (136-145)
[2019-09-03 06:26] LABS: Chol HDL Ratio 2.32 mg/dL (1.0-5.00); Cholesterol 109 mg/dL (0-200); HDL Cholesterol 47 mg/dL (60-100); LDL Cholesterol Calculated 46 mg/dL (50-129); LDL HDL Ratio 0.98 RATIO (0.00-3.22); Triglycerides 81 mg/dL (0-150)
[2019-09-03 06:36] LABS: Estmated Average Glucose 140; Hemoglobin A1C 6.5 % (4.0-6.0)
--- NOTE | 2019-09-03 06:38 | PC.NURSE ---
Current ptt 84.6 on heparin gtt. Decreased gtt to 23.2. Verified dose and change by MISHA Baugh. Next ptt due at 1235.
[2019-09-03] MEDS: losartan 50 mg Tablet 25 MG PO (08:46)
[2019-09-03] MEDS: pantoprazole DR 40 mg Tablet PO (08:47)
[2019-09-03] MEDS: aspirin 81 mg EC Tablet PO (08:47)
[2019-09-03] MEDS: tamsulosin 0.4 mg Capsule 0.8 MG PO (08:47)
[2019-09-03] MEDS: calcitriol 0.25 mcg Capsule PO (08:47)
[2019-09-03] MEDS: metoprolol tartrate 50 mg Tablet PO ×2 (08:47→18:00)
[2019-09-03] MEDS: isosorbide mononitrate ER 60 mg Tablet 120 MG PO (08:47)
[2019-09-03] MEDS: ferrous sulfate EC 325 mg Tablet PO (08:47)
[2019-09-03] MEDS: docusate sodium 100 mg Capsule PO ×2 (08:48→18:00)
--- NOTE | 2019-09-03 08:50 | PC.NURSE ---
nurse at bedside administering meds no needs at this time.
[2019-09-03 12:25] LABS: Glucose Point of Care 268 mg/dL (70-110)
[2019-09-03 12:56] LABS: Partial Thromboplastin Time 60.8 SECONDS (23.9-36.7)
--- NOTE | 2019-09-03 13:08 | P.PN_ITS ---
Subjective Subjective: Interval history: Noted overnight events, including paroxsymal atrial fibrillation, converted to NSR and is off Cardizem drip as of early this AM. Had 800 mL urine output and has had an additional 850 mL so far today. Reviewed repeat CXR showing resolved pulmonary edema, small L pleural effusion. Troponins trended up with noted delta > 2500. Heparin drip running. Resting in bed, family at bedside, no complaints currently. Remains in sinus rhythm. Medications: Reviewed: Yes Medication Review Details: Active Medications Generic Name Dose Route Start Last Admin Trade Name Freq PRN Reason Stop Dose Admin Acetaminophen 650 mg 09/02/19 18:02 09/03/19 03:26 Tylenol PO 650 mg Q6H PRN Administration Mild/Mod Pain Or Temp >/= 101 Albuterol/Ipratrop ium 3 ml 09/02/19 18:07 Duoneb INHALATION Q6H.RESPIRATORY P RN SHORTNESS OF INDU TH Aspirin 81 mg 09/03/19 09:00 09/03/19 08:47 Aspirin Ec PO 81 mg DAILY SHOLA Administration Atorvastatin Calci um 40 mg 09/02/19 21:00 09/02/19 21:31 Lipitor PO 40 mg BEDTIME SHOLA Administration Bumetanide 1 mg 09/02/19 18:15 09/03/19 05:57 Bumex IV 1 mg Q12H SHOLA Administration Calcitriol 0.25 mcg 09/03/19 09:00 09/03/19 08:47 Rocaltrol PO 0.25 mcg DAILY SHOLA Administration Dextrose 25 ml 09/02/19 18:07 D50w IVP ONCE PRN hypoglycemia prot ocol Protocol Dextrose 50 ml 09/02/19 18:07 D50w IVP PRN PRN hypoglycemia prot ocol Protocol Docusate Sodium 100 mg 09/03/19 09:00 09/03/19 08:48 Colace PO 100 mg BID SHOLA Administration Ferrous Sulfate 325 mg 09/03/19 08:00 09/03/19 08:47 Ferrous Sulfate PO 325 mg BREAKFAST SHOLA Administration Glucagon 1 mg 09/02/19 18:07 Glucagen IM ONCE PRN Adult Acute Hypog lycemia Prot. Protocol Heparin Sodium (Be ef Lung) 0 unit 09/02/19 17:14 Heparin IV PRN PRN Heparin weight-ba se protocol Protocol Heparin Sodium/Sod ium Chloride 25,000 unit in 50 0 mls @ 0 mls/hr 09/02/19 17:15 09/03/19 06:36 Heparin Drip IV 10.23 unit/kg/hr .Q0M SHOLA 23.2 mls/hr Titration Protocol Per Protocol Dextrose 500 mls @ 100 mls /hr 09/02/19 18:07 D5w IV ONCE PRN Adult Acute Hypog lycemia Prot Protocol Diltiazem HCl 125 mg/ Sodium 125 mls @ 0 mls/h r 09/03/19 00:30 09/03/19 02:30 Chloride IV 0 mg/hr .Q0M SHOLA 0 mls/hr Titration Protocol Per Protocol Insulin Aspart 0 unit 09/02/19 21:00 09/03/19 12:09 Novolog SUBCUT 10 unit WM&BEDTIME SHOLA Administration Protocol Isosorbide Mononit rate 120 mg 09/03/19 09:00 09/03/19 08:47 Imdur PO 120 mg DAILY SHOLA Administration Losartan Potassium 25 mg 09/03/19 09:00 09/03/19 08:46 Cozaar PO 25 mg DAILY SHOLA Administration Metoprolol Tartrat e 50 mg 09/03/19 09:00 09/03/19 08:47 Lopressor PO 50 mg BID SHOLA Administration Pantoprazole Sodiu m 40 mg 09/03/19 09:00 09/03/19 08:47 Protonix PO 40 mg DAILY SHOLA Administration Tamsulosin HCl 0.8 mg 09/03/19 09:00 09/03/19 08:47 Flomax PO 0.8 mg DAILY SHOLA Administration No Known Allergies Allergy (Verified 08/22/19 11:12) Vitals/I&O/Wt Last Vital Signs Temp 97.6 F 09/03/19 11:29 Pulse 83 09/03/19 11:29 Resp 16 09/03/19 11:29 BP 148/78 09/03/19 11:29 Pulse Ox 100 09/03/19 11:29 09/02/19 09/03/19 09/03/19 22:59 06:59 14:59 Intake Total 343.010 / 343.010 360 / 360 Output Total 225 / 225 575 / 800 850 / 850 Balance -225 / -225 -231.990 / -456.990 -490 / -490 Weight last 48 hrs Weight 121.427 kg Weight 113.398 kg Physical Exam Const: COMMON NORMALS: no apparent distress and oriented x3 GENERAL APPEARANCE: cooperative and comfortable NUTRITIONAL APPEARANCE: obese morb idly obese ORIENTATION/CONSCIOUSNESS: Yes awake HENMT: COMMON NORMALS: normocephalic, head/scalp atraumatic and moist oral mucous membranes HEAD & SCALP: normocephalic and atraumatic GENERAL EAR: hearing grossly impaired Eye: COMMON NORMALS: PERRL, EOMs intact bilaterally and conjunctivae normal CONJUNCTIVA: Yes conjunctivae normal PUPIL: Yes PERRL Neck/C-Spine: COMMON NORMALS: full ROM GENERAL: Yes normal visual inspection and Yes trachea midline Resp: COMMON NORMALS: normal respiratory effort, no retractions and no use of accessory muscles EFFORT & INSPECTION: Yes able to speak in complete sentences, Yes symmetric chest movement and No tachypneic AUSCULTATION: crack les Laterality: left and diminished lung sounds OTHER: -on 2 L NC Cardio: COMMON NORMALS: regular rate, regular rhythm, S1 normal heart sound and S2 normal heart sound RATE: regular rate RHYTHM: regular rhythm HEART SOUNDS: S1 normal, S2 normal and murmur systolic GI: COMMON NORMALS: normal to inspection, nondistended, normoactive bowel sounds, soft to palpation and non-tender INSPECTION: No abdominal distension and Yes central obesity PALPATION: Yes soft Back/Pelvis: COMMON NORMALS: thoracic and lumbar spine normal to inspection Extremity: COMMON NORMALS: normal to inspection, full ROM and no pedal edema GENERAL: Yes edema (2+ pitting edema of bilateral LEs) Neuro: COMMON NORMALS: oriented x3, moves all extremities, no focal motor deficits and no sensory deficits noted Psych: COMMON NORMALS: mental status grossly normal, thought process normal, cooperative, affect normal and speech normal SPEECH: Yes normal speech THOUGHT PROCESS: normal thought process Skin: COMMON NORMALS: no rashes or lesions noted, no jaundice, no petechiae and no mottling GENERAL SKIN EXAM: no rashes or lesions noted OTHER: - chronic venous stasis dermatitis Data : 09/03/19 05:31 09/03/19 05:31 A&P Assessment and plan (1) Non-ST elevation OR (NSTEMI): -noted elevation of gen 5 troponins with delta > 2500, significantly higher than previously noted -telemetry monitoring -on heparin drip -on statin, BB, aspirin; monitor for bleeding as has known anemia -has not had any chest pain/discomfort -could be related to atrial fibrillation, CHF exacerbation -Cardiology consult requested; Dr. Orodnez will see the patient -Echo done during most recent admission: EF=55%, G2DD, moderate to severe , trace MR, mild RI -had prior cath done in 07/2018 showing severe 3-vessel CAD, all grafts patent Status: Acute Code(s): I21.4 - Non-ST elevation (NSTEMI) myocardial infarction (2) Congestive heart failure: -has acute on chronic diastolic CHF exacerbation as evidenced by elevated BNP (14,689), LE edema (some of which is chronic), fluid overload on imaging -Echo done during most recent admission: EF=55%, G2DD, moderate to severe , trace MR, mild RI -IV diuresis with Bumex due to renal impairment; hold Lasix and Metolazone; got dose of Lasix last night -daily weights, monitor Is & Os -continue to monitor renal function, lytes with diuresis Status: Acute Qualifiers: Heart failure chronicity: acute on chronic Heart failure type: diastolic Qualified Code(s): I50.33 - Acute on chronic diastolic (congestive) heart failure Code(s): I50.9 - Heart failure, unspecified (3) A-fib: -appears to be new onset, no mention of arrhythmia during most recent admission, likely paroxysmal given overnight events -telemetry monitoring -converted to NSR spontaneously initially and then required short time on cardizem drip that has since been weaned off -VSS, continue to monitor -could have been triggered by CHF exacerbation Status: Acute Qualifiers: Atrial fibrillation type: unspecified Qualified Code(s): I48.91 - Unspecified atrial fibrillation Code(s): I48.91 - Unspecified atrial fibrillation (4) Aortic stenosis: -has known moderate to severe aortic stenosis per Echo done last week Status: Acute Qualifiers: Cardiac valve disease etiology: nonrheumatic Qualified Code(s): I35.0 - Nonrheumatic aortic (valve) stenosis Code(s): I35.0 - Nonrheumatic aortic (valve) stenosis (5) Coronary artery disease: -has known CAD s/p 5-vessel CABG -on statin, long acting nitrate Status: Acute Qualifiers: Associated angina: angina presence unspecified Coronary Disease- Associated Artery/Lesion type: unspecified vessel or lesion type [place] vs. 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 -A1c at goal-6.4 -accucheks, ISS, hypoglycemia precautions Status: Acute Qualifiers: Chronic kidney disease stage: stage 3 (moderate) Diabetes mellitus complication detail: with chronic kidney disease Diabetes mellitus complication status: with kidney complications Diabetes mellitus alf insulin use: with qm nurse use Qualified Code(s): E11.22 - Type 2 diabetes mellitus with diabetic chronic kidney disease; N18.3 - Chronic kidney disease, stage 3 (moderate); Z79.4 - 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 Code(s): E11.9 - Type 2 diabetes mellitus without complications (8) Acute kidney injury: -has 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 Has had GI workup in 04/2019 with EGD and colonoscopy; gastric ulcers and moderate diverticulosis and removal of sessile polyps respectively. Baseline Hg was previously 12, now seems to be 9-10. Monitor H/H with anticoagulation -Oxygen dependent COPD; 3 L NC at baseline; no acute exacerbation currently -SCOOTER -Generalized weakness, deconditioning: PT evaluation appreciated, d/c home recommended, ambulates with walker -Hard of hearing chronically -continue meds as ordered -GI ppx with PPI -DVT ppx not needed as on heparin drip -Dispo: home with continued HH services though with deconditioning and generalized weakness may need SNF -Code status: DNR/DNI Attestations Medical Necessity Statement*: Patient requires hospitalization for continued IV diuresis, management of NSTEMI pending cardiology evaluation. Time Spent in Patient Care: Greater than 35 minutes (>than 50% of time spent in counselling and/or direct pt care on unit) . Coding Level of Care Code Acute Management Professor for Chg Fwd Exam Comprehensive Diagnoses Non-ST elevation OR (NSTEMI) I21.4 Congestive heart failure I50.33 Heart failure chronicity: acute on chronic Heart failure type: diastolic A-fib I48.91 Atrial fibrillation type: unspecified Aortic stenosis I35.0 Cardiac valve disease etiology: nonrheumatic Coronary artery disease I25.10 Associated angina: angina presence unspecified Coronary Disease-Associated Artery/Lesion type: unspecified vessel or lesion type [place] vs. transplanted heart: [place] heart Hyperlipidemia E78.5 Hyperlipidemia type: unspecified Type 2 diabetes mellitus E11.22; N18.3; Z79.4 Chronic kidney disease stage: stage 3 (moderate) Diabetes mellitus complication detail: with chronic kidney disease Diabetes mellitus complication status: with kidney complications Diabetes mellitus alf insulin use: with qm nurse use Acute kidney injury N17.9
--- NOTE | 2019-09-03 13:59 | PC.NURSE ---
during heparin verification, heparin dose noted to be incorrect per protocol. drip was running at 23.3 ml/hr. the correct dose should have been 35 ml/hr. upon further investigation it was found that initial heparin dose from ER was incorrect. rate adjusted to correct dose. call placed to dr. de jesus to notify. no new orders received.
[2019-09-03] MEDS: heparin drip 25,000 UNIT/500 ML PREMIX 79.4 UNIT IV (14:11)
[2019-09-03 17:01] LABS: Glucose Point of Care 291 mg/dL (70-110)
--- NOTE | 2019-09-03 18:49 | P.CONIM_ITS ---
Providers/Reason For Consult Consulting Physican/Specialty*: MARIEL Ordonez MD/cardiology Reason for Consult*: Atrial fibrillation with rapid ventricular rate, elevated troponin I, history of coronary artery disease Attending Physician: Alexia Tidwell MD Primary Care Provider: Anton Pak DO History of Present Illness History of Present Illness Bakari Crabtree is a 79 year old male is admitted to the hospital through the emergency room, where he presented with complaints of extreme fatigue and nausea. This patient is known to have coronary disease, coronary bypass surgery, multiple hospital admissions for decompensated heart failure. He was discharged in the hospital a couple of days ago where he was admitted with progressive shortness of breath, worsening kidney function and worsening anemia. He was treated with diuretics and other symptomatic measures. He was discharged home in fairly stable condition. Yesterday the patient was complaining of extreme fatigue and nausea. When his checked his blood pressure, it was 60 mmHg, systolic. His heart rate was in the 1 40-1 50 range. He was brought to the hospital for further evaluation and management. His blood pressure gradually improved. The arrhythmia spontaneously converted to sinus rhythm. Currently he is on a Cardizem drip. His blood pressure seems to be staying in the normal range. Patient denies any chest pain or any unusual shortness of breath. His troponin T was found to be markedly elevated. Chest x-ray showed only minimal fluid on the left side. He has no fever or chills. No significant cough. He had multiple hospital admissions in the past for decompensated heart failure. Also is known to have chronic kidney disease with intermittently worsening kidney function. Also has a history of chronic anemia. He has a moderately severe aortic valve stenosis. Most recent cardiac authorization was done in July 2018. He had a patent bypass grafts at that time. All the [place] vessels were totally occluded at that time. Review of Systems Narrative: CONSTITUTIONAL: No fever or chills. Fatigue as mentioned above EYES: No blurring of vision or other visual disturbances lately. ENT: No hoarseness of voice, auditory disturbances or sore throat. CARDIOVASCULAR: As mentioned above. RESPIRATORY: Shortness of breath with exertion. GASTROINTESTINAL: Patient presented with the nausea which has improved since hospital admission GENITOURINARY: His urine output is decreasing. Chronic kidney disease INTEGUMENTARY: No skin rashes or history of skin cancer. NEURO: No transient ischemic attacks or amaurosis. PSYCHIATRIC: No history of psychosis or major depression. HEMATOLOGIC: History of chronic anemia ENDOCRINE: No history of polyuria or polydipsia. MUSCULOSKELETAL: N degenerative joint disease LLERGY/IMMUNOLOGY: As mentioned above. Meds/Allergies Home Medications and Allergies Home Medications Medication Instructions Recorded Confirmed Type Lantus Solostar U-100 Insulin See Rx Instructions .ROUTE .COMPLEX 08/22/19 09/02/19 History Symbicort 2 puff INHALATION BID 08/22/19 09/02/19 History acetaminophen [Tylenol Extra 1,000 mg PO TID PRN 08/22/19 09/02/19 History Strength] albuterol sulfate [ProAir HFA] 2 puff INHALATION 6XD PRN 08/22/19 09/02/19 History atorvastatin [Lipitor] 20 mg PO DAILY 08/22/19 09/02/19 History ferrous sulfate 325 mg PO DAILY 08/22/19 09/02/19 History ipratropium-albuterol 3 ml INHALATION QID 08/22/19 09/02/19 History isosorbide mononitrate 120 mg PO DAILY 08/22/19 09/02/19 History Allergies Allergy/AdvReac Type Severity Reaction Status Date / Time No Known Allergies Allergy Verified 08/22/19 11:12 Current Medications Current Medications Generic Name Dose Route Start Last Admin Trade Name Freq PRN Reason Stop Dose Admin Acetaminophen 650 mg 09/02/19 18:02 09/03/19 15:58 Tylenol PO 650 mg Q6H PRN Administration Mild/Mod Pain Or Temp >/= 101 Aspirin 81 mg 09/03/19 09:00 09/03/19 08:47 Aspirin Ec PO 81 mg DAILY SHOLA Administration Atorvastatin Calcium 40 mg 09/02/19 21:00 09/02/19 21:31 Lipitor PO 40 mg BEDTIME SHOLA Administration Bumetanide 1 mg 09/02/19 18:15 09/03/19 18:00 Bumex IV 1 mg Q12H SHOLA Administration Calcitriol 0.25 mcg 09/03/19 09:00 09/03/19 08:47 Rocaltrol PO 0.25 mcg DAILY SHOLA Administration Docusate Sodium 100 mg 09/03/19 09:00 09/03/19 18:00 Colace PO 100 mg BID SHOLA Administration Ferrous Sulfate 325 mg 09/03/19 08:00 09/03/19 08:47 Ferrous Sulfate PO 325 mg BREAKFAST SHOLA Administration Heparin Sodium/Sodium Chloride 25,000 unit in 500 mls @ 0 mls/hr 09/02/19 17:15 09/03/19 14:11 Heparin Drip IV 35 unit/kg/hr .Q0M SHOLA 79.4 mls/hr Administration Protocol Per Protocol Diltiazem HCl 125 mg/ Sodium 125 mls @ 0 mls/hr 09/03/19 00:30 09/03/19 02:30 Chloride IV 0 mg/hr .Q0M SHOLA 0 mls/hr Titration Protocol Per Protocol Insulin Aspart 0 unit 09/02/19 21:00 09/03/19 17:33 Novolog SUBCUT 10 unit WM&BEDTIME SHOLA Administration Protocol Isosorbide Mononitrate 120 mg 09/03/19 09:00 09/03/19 08:47 Imdur PO 120 mg DAILY SHOLA Administration Losartan Potassium 25 mg 09/03/19 09:00 09/03/19 08:46 Cozaar PO 25 mg DAILY SHOLA Administration Metoprolol Tartrate 50 mg 09/03/19 09:00 09/03/19 18:00 Lopressor PO 50 mg BID SHOLA Administration Pantoprazole Sodium 40 mg 09/03/19 09:00 09/03/19 08:47 Protonix PO 40 mg DAILY SHOLA Administration Tamsulosin HCl 0.8 mg 09/03/19 09:00 09/03/19 08:47 Flomax PO 0.8 mg DAILY SHOLA Administration PFSH Acute PFSH: Medical History Acute kidney injury superimposed on chronic kidney disease Anemia Aortic valve stenosis, acquired Atherosclerotic heart disease of [place] coronary artery with other forms of angina pectoris BPH (benign prostatic hyperplasia) Central retinal vein occlusion Chronic disease anemia Chronic kidney disease, stage III (moderate) Congestive heart failure with left ventricular systolic dysfunction Constipation COPD (chronic obstructive pulmonary disease) Coronary artery disease DJD (degenerative joint disease) GERD (gastroesophageal reflux disease) Hyperlipidemia Intermittent atrial fibrillation Moderate aortic valve stenosis Pulmonary hypertension Type 2 diabetes mellitus Surgical History History of appendectomy History of back surgery History of coronary artery bypass graft History of hernia repair History of neck surgery History of transurethral resection of prostate Family History Other Stroke Social History Smoking and tobacco status: former smoker Alcohol intake: never Substance/Drug Use: never Lives independently: Yes Household members: spouse Vitals/I&O/Wt Last Vital Signs Temp 98.3 F 09/03/19 15:10 Pulse 79 09/03/19 15:10 Resp 16 09/03/19 15:10 BP 141/73 09/03/19 15:10 Pulse Ox 100 09/03/19 15:10 09/03/19 09/03/19 09/03/19 06:59 14:59 22:59 Intake Total 343.010 / 343.010 535.933 / 535.933 540 / 1075.933 Output Total 575 / 800 950 / 950 300 / 1250 Balance -231.990 / -456.990 -414.067 / -414.067 240 / -174.067 Weight last 48 hrs Weight 268 lb Weight 267 lb 11.2 oz Weight 250 lb Physical Exam Narrative: EXAM NARRATIVE: GENERAL: The patient is alert and oriented times three. Not in any acute distress. Hard of hearing HEENT: Moderate pallor, no or lymphadenopathy. The pupils are reactant to light. Oral cavity: There are no mucous membrane lesions. Funduscopic examination: The fundus is not visualized NECK: Trachea appears to be central. No masses noted. No JVD or thyromegaly appreciated. No carotid bruit. RESPIRATORY: Chest is symmetrical. No intercostals muscle retraction or any accessory muscle activation. There is no chest wall tenderness. Breath sounds are heard bilaterally. No rales or rhonchi heard. No evidence of any consolidation. Cardiac expiratory wheezing BREASTS: Deferred. HEART: The PMI could not be palpated no palpable precordial events. S1 is variable and S2 is normal. No S3 or S4 heard. No pericardial rub or any click heard. ABDOMEN: No vessel pulsations or distention. No tenderness. No organomegaly appreciated. No abdominal bruit. Bowel sounds are normally heard. : Deferred. RECTAL: Deferred. LYMPHATIC: No lymphadenopathy noted in the neck or groin. EXTREMITIES: No edema or cyanosis. No clubbing. The pulses are symmetrical bilaterally. The radial, femoral, dorsalis pedis and the posterior tibial pulses are palpated and found to be in relatively low volume e and amplitude. MUSCULOSKELETAL: No acute joint deformities or swelling SKIN: There are no significant skin rash noted. NEUROPSYCHIATRIC: The patient is alert and oriented x3. Appears to be in a good mood. The higher functions are grossly within normal limits. No tremors or rigidity noted. Data Labs: Other Labs: Abnormal lab results 09/02/19 09/02/19 09/03/19 Range/Units 19:34 22:48 05:31 WBC 17.3 H (4.0-10.0) 10^3/ uL RBC 3.08 L (4.1-5.3) 10^6/u L Hgb 8.8 L (11.7-16.6) g/dL Hct 29.2 L (42.0-52.0) % MCV 94.8 H (80-94) fL RDW 15.7 H (12.1-15.1) % MPV 11.3 H (7.4-10.4) fL Neut # (Auto) 14.2 H (1.8-7.7) 10^3/u L [place] # (Auto) 1.8 H (0.2-0.9) 10^3/u L APTT 100.9 H (23.9-36.7) SECO NDS Potassium (3.5-5.1) mmol/L Chloride (98-107) mmol/L BUN (8-23) mg/dL Creatinine (0.7-1.2) mg/dL Glucose (65-115) mg/dL Hemoglobin A1c (4.0-6.0) % Troponin I 6 Hour 2783 H (0-15) ng/mL Troponin I Hi Sens Del 2501 H* (0-12) ng/L LDL Cholesterol, C alc (50-129) mg/dL HDL Cholesterol (60-100) mg/dL 09/03/19 09/03/19 09/03/19 Range/Units 05:31 05:31 05:31 WBC (4.0-10.0) 10^3/ uL RBC (4.1-5.3) 10^6/u L Hgb (11.7-16.6) g/dL Hct (42.0-52.0) % MCV (80-94) fL RDW (12.1-15.1) % MPV (7.4-10.4) fL Neut # (Auto) (1.8-7.7) 10^3/u L [place] # (Auto) (0.2-0.9) 10^3/u L APTT (23.9-36.7) SECO NDS Potassium 3.4 L (3.5-5.1) mmol/L Chloride 95 L (98-107) mmol/L BUN 66 H (8-23) mg/dL Creatinine 2.8 H (0.7-1.2) mg/dL Glucose 134 H (65-115) mg/dL Hemoglobin A1c 6.5 H (4.0-6.0) % Troponin I 6 Hour (0-15) ng/mL Troponin I Hi Sens Del (0-12) ng/L LDL Cholesterol, C alc 46 L (50-129) mg/dL HDL Cholesterol 47 L (60-100) mg/dL 09/03/19 09/03/19 09/03/19 Range/Units 05:31 12:37 18:47 WBC (4.0-10.0) 10^3/ uL RBC (4.1-5.3) 10^6/u L Hgb (11.7-16.6) g/dL Hct (42.0-52.0) % MCV (80-94) fL RDW (12.1-15.1) % MPV (7.4-10.4) fL Neut # (Auto) (1.8-7.7) 10^3/u L [place] # (Auto) (0.2-0.9) 10^3/u L APTT 84.6 H 60.8 H 121.8 H D (23.9-36.7) SECO NDS Potassium (3.5-5.1) mmol/L Chloride (98-107) mmol/L BUN (8-23) mg/dL Creatinine (0.7-1.2) mg/dL Glucose (65-115) mg/dL Hemoglobin A1c (4.0-6.0) % Troponin I 6 Hour (0-15) ng/mL Troponin I Hi Sens Del (0-12) ng/L LDL Cholesterol, C alc (50-129) mg/dL HDL Cholesterol (60-100) mg/dL EKG^: EKG 1: My Interpretation: EKG revealed sinus rhythm with a right bundle branch block. Possible old inferior wall TN. Possible left atrial enlargement. Other Data: Other data: Echocardiogram on 08/22/2019 1-Mildly increased left ventricular cavity size. Normal left ventricular systolic function. Left ventricular ejection fraction is estimated at 55 %. Grade II/IV diastolic dysfunction, moderately elevated filling pressures. 2-Moderately increased left atrial size. 3-Severely thickened mitral valve. Severe mitral annular calcification. No mitral valve stenosis. Trace mitral valve regurgitation. 4-Severe aortic valve calcification. Moderate to severe aortic valve stenosis, mean gradient 16.9 mmHg, ANTHONY 0.99 cm squared. 5-Mild pulmonary valve regurgitation. 6-There is no pericardial effusion. 7-When compared to the prior echocardiogram dated 07/21/2018 there is worsening of aortic stenosis from moderate 1.2 cm squared to moderate to severe 0.99 cm2 now. Renal ultrasound Normal kidney dimensions. No obvious vascular abnormalities Unremarkable urinary bladder Chest x-ray revealed Borderline cardiac silhouette with no definite lung infiltrate. Atelectasis in the right lower lobe area. Slightly increased pulmonary vascular markings. Cardiac catheterization on 08/09/2018 revealed LAD has 0% stenosis. LM: Severe 95% stenosis, ELI: 3 flow. LM to pLAD: Severe 100% stenosis, ELI: 3 flow. pCIRC: Severe 100% stenosis, ELI: 3 flow. mRCA to dRCA: Severe 100% stenosis, ELI: 3 flow. Three grafts visualized. SVG to mCIRC with a y-graft to Diag: patent. SVG to RPAV: patent. Coronary angiography shows right dominance. Patent PRESTON to LAD. Shortness of breath and chest pain patient underwent stress test which was positive it is a reason patient was bringing today for left heart catheterization A&P Assessment and plan (1) Non-ST elevation TN (NSTEMI): Most likely the patient had a non-ST elevation myocardial infarction. Hemodynamically seems to be stable. He may require a repeat coronary angiogram to decide on further management. However since he is stable with no significant chest pain and also in view of the worsening kidney function, we may hold off on any invasive procedures at this time. A repeat limited 2D echocardiogram would be helpful to evaluate LV function. After reviewing the echocardiogram, further recommendations will be made Status: Acute Code(s): I21.4 - Non-ST elevation (NSTEMI) myocardial infarction (2) Atherosclerotic heart disease of [place] coronary artery with other forms of angina pectoris: Patient is known to have severe three-vessel coronary disease. He had a cardiac cauterization in July 2018. At that time, he was found to have total occlusion of all the [place] vessels. He had a PRESTON to the LAD which was patent. A saphenous venous Y graft to the obtuse marginal and diagonal artery was found to be patent. The saphenous venous graft to the PDA branch of the right coronary artery also was found to be patent. Based on the angiogram findings, it was decided to treat him medically at that time. Status: Acute Code(s): I25.118 - Atherosclerotic heart disease of [place] coronary artery with other forms of angina pectoris (3) Congestive heart failure with left ventricular systolic dysfunction: Patient has a history of multiple hospital admission for decompensated heart failure. He may be carefully treated with diuretics and afterload reducing agents. Status: Acute Code(s): I50.20 - Unspecified systolic (congestive) heart failure (4) Acute kidney injury superimposed on chronic kidney disease: He has a history of stage III kidney disease. His kidney function may be closely monitored. Status: Acute Code(s): N17.9 - Acute kidney failure, unspecified; N18.9 - Chronic kidney disease, unspecified (5) Intermittent atrial fibrillation: Patient does seems to be highly symptomatic with atrial fibrillation. According to his , the systolic blood pressure was in the 60s, when the heart rate was in the 1 40-1 50 range at home. Because of the highly symptomatic arrhythmia, we may start him on amiodarone to maintain the sinus rhythm. Status: Acute Code(s): I48.0 - Paroxysmal atrial fibrillation (6) Chronic disease anemia: May continue on the current management. He has no evidence of any active bleed. His hemoglobin hematocrit need to be closely monitored. Status: Acute Code(s): D63.8 - Anemia in other chronic diseases classified elsewhere (7) Aortic valve stenosis, acquired: The aortic valve stenosis appears to be moderately severe. This needs to be further evaluated, once his acute conditions are properly addressed. Status: Acute Code(s): I35.0 - Nonrheumatic aortic (valve) stenosis Additional A&P Information Her problems are leukocytosis Mild hypokalemia Type 2 diabetes Based on the patient clinical progress and the results of the above, further recommendations will be made. Thank you for the opportunity to eval this patient make these recommendations. Consult Attestations Medical Necessity Statement: Patient requires continued hospital stay for close monitoring and further management Coding Level of Care Code Acute Mold Clamper for jair Tuttle Diagnoses Non-ST elevation TN (NSTEMI) I21.4 Atherosclerotic heart disease of [place] coronary artery with other forms of angina pectoris I25.118 Congestive heart failure with left ventricular systolic dysfunction I50.20 Acute kidney injury superimposed on chronic kidney disease N17.9; N18.9 Intermittent atrial fibrillation I48.0 Chronic disease anemia D63.8 Aortic valve stenosis, acquired I35.0
[2019-09-03 19:22] LABS: Partial Thromboplastin Time 121.8 SECONDS (23.9-36.7)
--- NOTE | 2019-09-03 19:49 | PC.NURSE ---
Patient current ptt 121.8. Heparin gtt protocol. Decreased gtt from 35ml/hr observed on pump with MISHA Kim. Changed to 32ml/hr at this time. Noted on titration record that gtt had been running at 79.4ml/hr. This was incorrect documentation. IV pump was set at appropriate rate of 35ml/hr again verified by MISHA Kim.
[2019-09-03 20:31] LABS: Glucose Point of Care 337 mg/dL (70-110)
[2019-09-03] MEDS: atorvastatin 40 mg Tablet PO (20:36)
[2019-09-03] MEDS: amiodarone 200 mg Tablet 400 MG PO (20:36)
--- NOTE | 2019-09-03 21:23 | PC.NURSE ---
Corrected infusion rate of heparin gtt. Based on calculations gtt should be running at 27ml/hr. changed per protocol. Verified calculations and changed with Christy Kim.
[2019-09-04] VITALS (57 sets, daily range): BP systolic 120–150; BP diastolic 64–74; PULSE 70–83; RESP 16–18; TEMP 36.6–37.1; O2SAT 93–100
[2019-09-04 02:05] LABS: Basophils % 0.1 %; Eosinophils # 0.5 10^3/uL (0.0-0.8); Eosinophils % 3.4 %; Hematocrit 24.6 % (42.0-52.0); Hemoglobin 7.8 g/dL (11.7-16.6); Lymphocytes # 1.2 10^3/uL (0.8-4.8); Lymphocytes % 8.2 %; Mean Corpuscular HGB Conc 31.7 g/dL (30.0-36.0); Mean Corpuscular Volume 94.6 fL (80-94); Mean Platelet Volume 11.6 fL (7.4-10.4); Monocytes # 1.6 10^3/uL (0.2-0.9); Monocytes % 10.7 %; Neutrophils # 11.2 10^3/uL (1.8-7.7); Neutrophils % 76.9 %; Nucleated Red Blood Cells % 0 %; Platelet Count 220 10^3/cmm (130-400); Red Cell Distribution Width 15.6 % (12.1-15.1); White Blood Count 14.6 10^3/uL (4.0-10.0)
[2019-09-04 02:13] LABS: Partial Thromboplastin Time 70.6 SECONDS (23.9-36.7)
[2019-09-04 02:33] LABS: Anion Gap 16.7 (5-19); Blood Urea Nitrogen 65 mg/dL (8-23); Calcium 9.2 mg/dL (8.5-10.5); Carbon Dioxide 30 mmol/L (22-29); Chloride 92 mmol/L (98-107); Glucose 224 mg/dL (65-115); Osmolality Calculated 286 mOsm/kg (285-295); Potassium 3.7 mmol/L (3.5-5.1); Sodium 135 mmol/L (136-145)
--- NOTE | 2019-09-04 04:00 | PC.NURSE ---
PTT 70.6 this am. No change to gtt required.
[2019-09-04] MEDS: acetaminophen 325 mg Tablet 650 MG PO (04:39)
[2019-09-04] MEDS: amiodarone 200 mg Tablet 400 MG PO ×3 (04:39→21:11)
[2019-09-04] MEDS: bumetanide 0.25 mg/mL SDV 10 mL 1 MG IV ×2 (04:40→18:27)
[2019-09-04 06:44] LABS: Glucose Point of Care 231 mg/dL (70-110)
[2019-09-04] MEDS: heparin drip 25,000 UNIT/500 ML PREMIX 27 UNIT IV (06:54)
--- NOTE | 2019-09-04 07:00 | USCV_ITS ---
Bakari Crabtree Age: 79 Gender: M : 1940 Exam Date: 09/04/2019 06:31 Ordering Phys: Alisia Ordonez MD ([email or web address]) Technologist: Emiliano Siddiqui Exam Location: [facility] [place] Indication: ELEVATED TROP BP: 143 / 74 HR: 80 Rhythm: Sinus Technical Quality: Adequate MEASUREMENTS (Male / Female) Normal Values 2D ECHO LVOT Diameter 2.0 cm LV Ejection Fraction MOD 2C 37.3 % LV Ejection Fraction 2C AL 37.6 % LA Diameter 5.3 cm LA Width 4.2 cm LA Height 6.1 cm RA Width 4.3 cm RA Height 5.7 cm M-MODE LV Diastolic Diameter MM 6.3 cm 4.2 - 5.9 / 3.9 - 5.3 cm LV Systolic Diameter MM 4.6 cm LV Ejection Fraction MM Teich 50.9 % IVS Diastolic Thickness MM 1.0 cm 0.6 - 1.0 / 0.6 - 0.9 cm IVS Systolic Thickness MM 1.6 cm LVPW Diastolic Thickness MM 1.1 cm 0.6 - 1.0 / 0.6 - 0.9 cm LVPW Systolic Thickness MM 1.8 cm RV Diastolic Diameter MM 2.0 cm Aortic Annulus Diameter 3.5 cm LA Ao Ratio MM 1.5 MV E Point Septal Separation 1.7 cm FINDINGS Left Ventricle Normal LV size with a diminished ejection fraction of around 40%. Diffuse hypokinesia of the inferolateral wall segments. Mild hypokinesia of the apical segments. Right Ventricle Possibly of normal size ejection fraction Right Atrium Mildly increased right atrial size. Left Atrium Moderately increased left atrial size. Mitral Valve Moderate mitral annular calcification. Aortic Valve Thickened aortic valve. Tricuspid Valve Thickened tricuspid valve Pulmonic Valve Could not be visualized well Pericardium No pericardial effusion. Aorta Normal aortic annulus size. CONCLUSIONS Normal LV size with a diminished ejection fraction of around 40%. Diffuse hypokinesia of the inferolateral wall segments. Mild hypokinesia of the apical segments. Moderately increased left atrial size. Mildly increased right atrial size. Moderate mitral annular calcification. Taken aortic, mitral and tricuspid valves. There is no pericardial effusion. There are no intracardiac masses. Compared to the study from 08/22/2019, the hypokinesia in the inferolateral wall segments appears to be new Dr Alisia Ordonez MD FACC (Electronically Signed) Final Date: 04 September 2019 13:32 S
[2019-09-04] MEDS: ferrous sulfate EC 325 mg Tablet PO (07:49)
[2019-09-04 08:59] LABS: Partial Thromboplastin Time 110.1 SECONDS (23.9-36.7)
[2019-09-04] MEDS: docusate sodium 100 mg Capsule PO ×2 (09:42→18:27)
[2019-09-04] MEDS: losartan 50 mg Tablet 25 MG PO (09:42)
[2019-09-04] MEDS: calcitriol 0.25 mcg Capsule PO (09:42)
[2019-09-04] MEDS: aspirin 81 mg EC Tablet PO (09:43)
[2019-09-04] MEDS: tamsulosin 0.4 mg Capsule 0.8 MG PO (09:43)
[2019-09-04] MEDS: pantoprazole DR 40 mg Tablet PO (09:44)
[2019-09-04] MEDS: metoprolol tartrate 50 mg Tablet PO ×2 (09:45→18:27)
[2019-09-04] MEDS: isosorbide mononitrate ER 60 mg Tablet 120 MG PO (09:45)
--- NOTE | 2019-09-04 10:36 | P.PN_ITS ---
Subjective Subjective: Interval history: AM labs noted, slight improvement in renal function, drop in Hg. Had 1250 mL urine output overnight. Heparin drip continues. Started on Amiodarone. Limited Echo done, report pending. Patient seen and examined, at bedside, seems to be in good spirits and denies any complaints currently. Medications: Reviewed: Yes Medication Review Details: Active Medications Generic Name Dose Route Start Last Admin Trade Name Freq PRN Reason Stop Dose Admin Acetaminophen 650 mg 09/02/19 18:02 09/04/19 04:39 Tylenol PO 650 mg Q6H PRN Administration Mild/Mod Pain Or Temp >/= 101 Albuterol/Ipratrop ium 3 ml 09/02/19 18:07 Duoneb INHALATION Q6H.RESPIRATORY P RN SHORTNESS OF INDU TH Amiodarone HCl 400 mg 09/03/19 19:45 09/04/19 04:39 Cordarone PO 400 mg Q8H SHOLA Administration Aspirin 81 mg 09/03/19 09:00 09/04/19 09:43 Aspirin Ec PO 81 mg DAILY SHOLA Administration Atorvastatin Calci um 40 mg 09/02/19 21:00 09/03/19 20:36 Lipitor PO 40 mg BEDTIME SHOLA Administration Bumetanide 1 mg 09/02/19 18:15 09/04/19 04:40 Bumex IV 1 mg Q12H SHOLA Administration Calcitriol 0.25 mcg 09/03/19 09:00 09/04/19 09:42 Rocaltrol PO 0.25 mcg DAILY SHOLA Administration Dextrose 25 ml 09/02/19 18:07 D50w IVP ONCE PRN hypoglycemia prot ocol Protocol Dextrose 50 ml 09/02/19 18:07 D50w IVP PRN PRN hypoglycemia prot ocol Protocol Docusate Sodium 100 mg 09/03/19 09:00 09/04/19 09:42 Colace PO 100 mg BID SHOLA Administration Ferrous Sulfate 325 mg 09/03/19 08:00 09/04/19 07:49 Ferrous Sulfate PO 325 mg BREAKFAST SHOLA Administration Glucagon 1 mg 09/02/19 18:07 Glucagen IM ONCE PRN Adult Acute Hypog lycemia Prot. Protocol Heparin Sodium (Be ef Lung) 0 unit 09/02/19 17:14 Heparin IV PRN PRN Heparin weight-ba se protocol Protocol Heparin Sodium/Sod ium Chloride 25,000 unit in 50 0 mls @ 0 mls/hr 09/02/19 17:15 09/04/19 06:54 Heparin Drip IV 11.9 unit/kg/hr .Q0M SHOLA 27 mls/hr Administration Protocol Per Protocol Dextrose 500 mls @ 100 mls /hr 09/02/19 18:07 D5w IV ONCE PRN Adult Acute Hypog lycemia Prot Protocol Diltiazem HCl 125 mg/ Sodium 125 mls @ 0 mls/h r 09/03/19 00:30 09/03/19 02:30 Chloride IV 0 mg/hr .Q0M SHOLA 0 mls/hr Titration Protocol Per Protocol Insulin Aspart 0 unit 09/02/19 21:00 09/04/19 07:46 Novolog SUBCUT 8 unit WM&BEDTIME SHOLA Administration Protocol Isosorbide Mononit rate 120 mg 09/03/19 09:00 09/04/19 09:45 Imdur PO 120 mg DAILY SHOLA Administration Losartan Potassium 25 mg 09/03/19 09:00 09/04/19 09:42 Cozaar PO 25 mg DAILY SHOLA Administration Metoprolol Tartrat e 50 mg 09/03/19 09:00 09/04/19 09:45 Lopressor PO 50 mg BID SHOLA Administration Pantoprazole Sodiu m 40 mg 09/03/19 09:00 09/04/19 09:44 Protonix PO 40 mg DAILY SHOLA Administration Tamsulosin HCl 0.8 mg 09/03/19 09:00 09/04/19 09:43 Flomax PO 0.8 mg DAILY SHOLA Administration No Known Allergies Allergy (Verified 08/22/19 11:12) Vitals/I&O/Wt Last Vital Signs Temp 98.7 F 09/04/19 08:00 Pulse 80 09/04/19 10:27 Resp 17 09/04/19 10:27 BP 150/74 09/04/19 08:00 Pulse Ox 98 09/04/19 10:27 09/03/19 09/04/19 09/04/19 22:59 06:59 14:59 Intake Total 1040.000 / 1575.933 680 / 680 Output Total 500 / 1450 1050 / 2500 Balance 540.000 / 125.933 -1050 / -924.067 680 / 680 Weight last 48 hrs Weight 121.835 kg Weight 121.563 kg Weight 121.427 kg Weight 113.398 kg Physical Exam Const: COMMON NORMALS: no apparent distress and oriented x3 GENERAL APPEARANCE: cooperative and comfortable NUTRITIONAL APPEARANCE: obese morbidly obese ORIENTATION/CONSCIOUSNESS: Yes awake HENMT: COMMON NORMALS: normocephalic, head/scalp atraumatic and moist oral mucous membranes HEAD & SCALP: normocephalic and atraumatic GENERAL EAR: hearing grossly impaired Eye: COMMON NORMALS: PERRL, EOMs intact bilaterally and conjunctivae normal CONJUNCTIVA: Yes conjunctivae normal PUPIL: Yes PERRL Neck/C-Spine: COMMON NORMALS: full ROM GENERAL: Yes normal visual inspection and Yes trachea midline Resp: COMMON NORMALS: normal respiratory effort, no retractions and no use of accessory muscles EFFORT & INSPECTION: Yes able to speak in complete sentences, Yes symmetric chest movement and No tachypneic AUSCULTATION: crackles Laterality: left and diminished lung sounds OTHER: -on 3 L NC Cardio: COMMON NORMALS: regular rate, regular rhythm, S1 normal heart sound and S2 normal heart sound RATE: regular rate RHYTHM: regular rhythm HEART SOUNDS: S1 normal, S2 normal and murmur systolic GI: COMMON NORMALS: normal to inspection, nondistended, normoactive bowel sounds, soft to palpation and non-tender INSPECTION: No abdominal distension and Yes central obesity PALPATION: Yes soft Back/Pelvis: COMMON NORMALS: thoracic and lumbar spine normal to inspection Extremity: COMMON NORMALS: normal to inspection, full ROM and no pedal edema GENERAL: Yes edema (1+ pitting edema of bilateral LEs, MENDOZA hose on) Neuro: COMMON NORMALS: oriented x3, moves all extremities, no focal motor de ficits and no sensory deficits noted Psych: COMMON NORMALS: mental status grossly normal, thought process normal, cooperative, affect normal and speech normal SPEECH: Yes normal speech THOUGHT PROCESS: normal thought process Skin: COMMON NORMALS: no rashes or lesions noted, no jaundice, no petechiae and no mottling GENERAL SKIN EXAM: no rashes or lesions noted OTHER: - chronic venous stasis dermatitis Data : 09/04/19 14:18 09/04/19 01:34 A&P Assessment and plan (1) Non-ST elevation MD (NSTEMI): -noted elevation of gen 5 troponins with delta > 2500, significantly higher than previously noted -telemetry monitoring -on heparin drip -on statin, BB, aspirin; monitor for bleeding as has known anemia -has not had any chest pain/discomfort -could be related to atrial fibrillation, CHF exacerbation -Cardiology consult by Dr. José Luis buckner -Echo done during most recent admission: EF=55%, G2DD, moderate to severe , trace MR, mild [place]. Limited echo-EF=40%, hypokinesia of the inferolateral wall segments, mild hypokinesia of the apical segments -had prior cath done in 07/2018 showing severe 3-vessel CAD, all grafts patent Status: Acute Code(s): I21.4 - Non-ST elevation (NSTEMI) myocardial infarction (2) Congestive heart failure: -has acute on chronic diastolic CHF exacerbation as evidenced by elevated BNP (14,689), LE edema (some of which is chronic), fluid overload on imaging -Echo done during most recent admission: EF=55%, G2DD, moderate to severe , trace MR, mild [place] -IV diuresis with Bumex due to renal impairment; hold Lasix and Metolazone; got dose of Lasix last night -daily weights, monitor Is & Os -continue to monitor renal function, lytes with diuresis Status: Acute Qualifiers: Heart failure chronicity: acute on chronic Heart failure type: diastolic Qualified Code(s): I50.33 - Acute on chronic diastolic (congestive) heart failure Code(s): I50.9 - Heart failure, unspecified (3) A-fib: -appears to be new onset, no mention of arrhythmia during most recent admission, likely paroxysmal given overnight events -telemetry monitoring -converted to NSR spontaneously initially and then required short time on cardizem drip that has since been weaned off -VSS, continue to monitor -could have been triggered by CHF exacerbation -started on Amiodarone 400 mg TID Status: Acute Qualifiers: Atrial fibrillation type: unspecified Qualified Code(s): I48.91 - Unspecified atrial fibrillation Code(s): I48.91 - Unspecified atrial fibrillation (4) Aortic stenosis: -has known moderate to severe aortic stenosis per Echo done last week Status: Chronic Qualifiers: Cardiac valve disease etiology: nonrheumatic Qualified Code(s): I35.0 - Nonrheumatic aortic (valve) stenosis Code(s): I35.0 - Nonrheumatic aortic (valve) stenosis (5) Coronary artery disease: -has known CAD s/p 5-vessel CABG -on statin, long acting nitrate Status: Chronic Qualifiers: Associated angina: angina presence unspecified Coronary Disease- Associated Artery/Lesion type: unspecified vessel or lesion type [place] vs. 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 -A1c at goal-6.4 -accucheks, ISS, hypoglycemia precautions Status: Chronic Qualifiers: Chronic kidney disease stage: stage 3 (moderate) Diabetes mellitus complication detail: with chronic kidney disease Diabetes mellitus complication status: with kidney complications Diabetes mellitus rodent exterminator insulin use: with rodent exterminator use Qualified Code(s): E11.22 - Type 2 diabetes mellitus with diabetic chronic kidney disease; N18.3 - Chronic kidney disease, stage 3 (moderate); Z79.4 - intermediate (current) use of insulin Code(s): E11.9 - Type 2 diabetes mellitus without complications (8) Acute kidney injury: -has 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 Has had GI workup in 04/2019 with EGD and colonoscopy; gastric ulcers and moderate diverticulosis and removal of sessile polyps respectively. Baseline Hg was previously 12, now seems to be 9-10. Monitor H/H with anticoagulation -Oxygen dependent COPD; 3 L NC at baseline; no acute exacerbation currently -SCOOTER -Generalized weakness, deconditioning: PT evaluation appreciated, d/c home recommended, ambulates with walker -Hard of hearing chronically -continue meds as ordered -GI ppx with PPI -DVT ppx not needed as on heparin drip -Dispo: home with continued HH services -Code status: DNR/DNI Attestations Medical Necessity Statement*: Patient requires hospitalization for continued treatment of NSTEMI, on heparin drip, as well as NORMAN and atrial fibrillation, started on amiodarone. Time Spent in Patient Care: Greater than 35 minutes (>than 50% of time spent in counselling and/or direct pt care on unit) . Coding Level of Care Code Acute Inorganic Chemistry Professor for g Fwd Exam Comprehensive Diagnoses Non-ST elevation MD (NSTEMI) I21.4 Congestive heart failure I50.33 Heart failure chronicity: acute on chronic Heart failure type: diastolic A-fib I48.91 Atrial fibrillation type: unspecified Aortic stenosis I35.0 Cardiac valve disease etiology: nonrheumatic Coronary artery disease I25.10 Associated angina: angina presence unspecified Coronary Disease-Associated Artery/Lesion type: unspecified vessel or lesion type [place] vs. transplanted heart: [place] heart Hyperlipidemia E78.5 Hyperlipidemia type: unspecified Type 2 diabetes mellitus E11.22; N18.3; Z79.4 Chronic kidney disease stage: stage 3 (moderate) Diabetes mellitus complication detail: with chronic kidney disease Diabetes mellitus complication status: with kidney complications Diabetes mellitus mcfp insulin use: with rodent exterminator use Acute kidney injury N17.9
--- NOTE | 2019-09-04 11:12 | PM.PN ---
Subjective Subjective: Interval history: Patient converted to sinus rhythm. Patient was started on amiodarone. He is feeling much better. Medications: Reviewed: Yes Medication Review Details: Active Medications Generic Name Dose Route Start Last Admin Trade Name Freq PRN Reason Stop Dose Admin Acetaminophen 650 mg 09/02/19 18:02 09/04/19 04:39 Tylenol PO 650 mg Q6H PRN Administration Mild/Mod Pain Or Temp >/= 101 Albuterol/Ipratrop ium 3 ml 09/02/19 18:07 Duoneb INHALATION Q6H.RESPIRATORY P RN SHORTNESS OF INDU TH Amiodarone HCl 400 mg 09/03/19 19:45 09/04/19 04:39 Cordarone PO 400 mg Q8H SHOLA Administration Aspirin 81 mg 09/03/19 09:00 09/04/19 09:43 Aspirin Ec PO 81 mg DAILY SHOLA Administration Atorvastatin Calci um 40 mg 09/02/19 21:00 09/03/19 20:36 Lipitor PO 40 mg BEDTIME SHOLA Administration Bumetanide 1 mg 09/02/19 18:15 09/04/19 04:40 Bumex IV 1 mg Q12H SHOLA Administration Calcitriol 0.25 mcg 09/03/19 09:00 09/04/19 09:42 Rocaltrol PO 0.25 mcg DAILY SHOLA Administration Dextrose 25 ml 09/02/19 18:07 D50w IVP ONCE PRN hypoglycemia prot ocol Protocol Dextrose 50 ml 09/02/19 18:07 D50w IVP PRN PRN hypoglycemia prot ocol Protocol Docusate Sodium 100 mg 09/03/19 09:00 09/04/19 09:42 Colace PO 100 mg BID SHOLA Administration Ferrous Sulfate 325 mg 09/03/19 08:00 09/04/19 07:49 Ferrous Sulfate PO 325 mg BREAKFAST SHOLA Administration Glucagon 1 mg 09/02/19 18:07 Glucagen IM ONCE PRN Adult Acute Hypog lycemia Prot. Protocol Heparin Sodium (Be ef Lung) 0 unit 09/02/19 17:14 Heparin IV PRN PRN Heparin weight-ba se protocol Protocol Heparin Sodium/Sod ium Chloride 25,000 unit in 50 0 mls @ 0 mls/hr 09/02/19 17:15 09/04/19 06:54 Heparin Drip IV 11.9 unit/kg/hr .Q0M SHOLA 27 mls/hr Administration Protocol Per Protocol Dextrose 500 mls @ 100 mls /hr 09/02/19 18:07 D5w IV ONCE PRN Adult Acute Hypog lycemia Prot Protocol Diltiazem HCl 125 mg/ Sodium 125 mls @ 0 mls/h r 09/03/19 00:30 09/03/19 02:30 Chloride IV 0 mg/hr .Q0M SHOLA 0 mls/hr Titration Protocol Per Protocol Insulin Aspart 0 unit 09/02/19 21:00 09/04/19 07:46 Novolog SUBCUT 8 unit WM&BEDTIME SHOLA Administration Protocol Isosorbide Mononit rate 120 mg 09/03/19 09:00 09/04/19 09:45 Imdur PO 120 mg DAILY SHOLA Administration Losartan Potassium 25 mg 09/03/19 09:00 09/04/19 09:42 Cozaar PO 25 mg DAILY SHOLA Administration Metoprolol Tartrat e 50 mg 09/03/19 09:00 09/04/19 09:45 Lopressor PO 50 mg BID SHOLA Administration Pantoprazole Sodiu m 40 mg 09/03/19 09:00 09/04/19 09:44 Protonix PO 40 mg DAILY SHOLA Administration Tamsulosin HCl 0.8 mg 09/03/19 09:00 09/04/19 09:43 Flomax PO 0.8 mg DAILY SHOLA Administration No Known Allergies Allergy (Verified 08/22/19 11:12) Vitals/I&O/Wt Last Vital Signs Temp 98.7 F 09/04/19 08:00 Pulse 80 09/04/19 10:27 Resp 17 09/04/19 10:27 BP 150/74 09/04/19 08:00 Pulse Ox 98 09/04/19 10:27 09/03/19 09/04/19 09/04/19 22:59 06:59 14:59 Intake Total 1040.000 / 1575.933 680 / 680 Output Total 500 / 1450 1050 / 2500 Balance 540.000 / 125.933 -1050 / -924.067 680 / 680 Weight last 48 hrs Weight 268 lb 9.6 oz Weight 268 lb Weight 267 lb 11.2 oz Weight 250 lb Physical Exam Narrative: EXAM NARRATIVE: GENERAL: Patient is alert, awake and oriented x3. NECK: No jugular vein distension. HEENT: No cyanosis. No icterus. No pallor. HEART: Regular S1 and S2. 2/6 sys murmur, rub or gallop. LUNGS: Clear to auscultate bilaterally. ABDOMEN: Soft, nontender and nondistended. Positive bowel sounds. No guarding, rebound or tenderness. CENTRAL NERVOUS SYSTEM: Grossly nonfocal. EXTREMITIES: Lower extremities without edema bilaterally. Data : 09/04/19 01:34 09/04/19 01:34 A&P Assessment and plan (1) Non-ST elevation [place] (NSTEMI): Patient has worsening of renal function. He is stable, he denies any chest pain. We will continue to manage him medically as he is very high risk for contrast-induced nephropathy and worsening of renal failure leading to dialysis Status: Acute Code(s): I21.4 - Non-ST elevation (NSTEMI) myocardial infarction (2) Atherosclerotic heart disease of [place] coronary artery with other forms of angina pectoris: Continue to treat him medically since patient has patent prior all 3 grafts nearly 1 year ago however he has chronically occluded [place] vessels. Due to worsening of creatinine and renal function will continue to treat him medically since he is stable denies any chest pain. Status: Acute Code(s): I25.118 - Atherosclerotic heart disease of [place] coronary artery with other forms of angina pectoris (3) Congestive heart failure with left ventricular systolic dysfunction: Appears to be compensated. Continue current regimen Status: Acute Code(s): I50.20 - Unspecified systolic (congestive) heart failure (4) Acute kidney injury superimposed on chronic kidney disease: Continue to monitor. Status: Acute Code(s): N17.9 - Acute kidney failure, unspecified; N18.9 - Chronic kidney disease, unspecified (5) Intermittent atrial fibrillation: Patient is in sinus rhythm. Continue amiodarone. Status: Acute Code(s): I48.0 - Paroxysmal atrial fibrillation (6) Chronic disease anemia: As per medicine. Will keep hemoglobin around 10 Status: Acute Code(s): D63.8 - Anemia in other chronic diseases classified elsewhere (7) Aortic valve stenosis, acquired: Moderate aortic stenosis. We will continue to monitor him closely for possible TAVR in the future Status: Acute Code(s): I35.0 - Nonrheumatic aortic (valve) stenosis Additional A&P Information Her problems are leukocytosis Mild hypokalemia Type 2 diabetes Based on the patient clinical progress and the results of the above, further recommendations will be made. Thank you for the opportunity to eval this patient make these recommendations. Attestations Medical Necessity Statement*: Require continuation hospitalization for loading of antiarrhythmics Coding Level of Care Code Established Pt Acute Salesforce Consultant for Chg Fwd Patient Type Established History Expanded Problem Focused Exam Expanded Problem Focused Medical Decision Making High Complexity Diagnoses Non-ST elevation OK (NSTEMI) I21.4 Atherosclerotic heart disease of [place] coronary artery with other forms of angina pectoris I25.118 Congestive heart failure with left ventricular systolic dysfunction I50.20 Acute kidney injury superimposed on chronic kidney disease N17.9; N18.9 Intermittent atrial fibrillation I48.0 Chronic disease anemia D63.8 Aortic valve stenosis, acquired I35.0
[2019-09-04 11:22] LABS: Glucose Point of Care 294 mg/dL (70-110)
[2019-09-04 14:28] LABS: Hematocrit 25.2 % (42.0-52.0); Hemoglobin 7.7 g/dL (11.7-16.6)
[2019-09-04 16:21] LABS: Partial Thromboplastin Time 47.1 SECONDS (23.9-36.7)
[2019-09-04 16:42] LABS: Glucose Point of Care 283 mg/dL (70-110)
[2019-09-04 20:00] LABS: Glucose Point of Care 245 mg/dL (70-110)
[2019-09-04] MEDS: insulin glargine 100 units/1 mL 10 UNIT SUBCUT (21:10)
[2019-09-04] MEDS: zolpidem 5 mg Tablet PO (21:11)
[2019-09-04] MEDS: atorvastatin 40 mg Tablet PO (21:11)
[2019-09-05] VITALS (8 sets, daily range): BP systolic 119–144; BP diastolic 60–81; PULSE 68–82; RESP 15–23; TEMP 36.4–36.8; O2SAT 98–100
--- NOTE | 2019-09-05 00:57 | PC.NURSE ---
PTT at 64. No change required per heparin gtt protocol.
[2019-09-05] MEDS: heparin drip 25,000 UNIT/500 ML PREMIX 22 UNIT IV (03:49)
[2019-09-05 03:57] LABS: Basophils % 0.2 %; Eosinophils # 0.4 10^3/uL (0.0-0.8); Eosinophils % 3.3 %; Hematocrit 28.3 % (42.0-52.0); Hemoglobin 8.6 g/dL (11.7-16.6); Lymphocytes % 7.5 %; Mean Corpuscular HGB Conc 30.4 g/dL (30.0-36.0); Mean Corpuscular Hemoglobin 30.4 pg (28.0-34.0); Mean Platelet Volume 11.1 fL (7.4-10.4); Monocytes # 1.3 10^3/uL (0.2-0.9); Monocytes % 10.3 %; Neutrophils # 9.9 10^3/uL (1.8-7.7); Neutrophils % 77.8 %; Nucleated Red Blood Cells % 0 %; Platelet Count 216 10^3/cmm (130-400); Red Blood Count 2.83 10^6/uL (4.1-5.3); Red Cell Distribution Width 15.6 % (12.1-15.1); White Blood Count 12.7 10^3/uL (4.0-10.0)
[2019-09-05 04:12] LABS: Anion Gap 16.5 (5-19); Blood Urea Nitrogen 59 mg/dL (8-23); Calcium 8.8 mg/dL (8.5-10.5); Carbon Dioxide 28 mmol/L (22-29); Chloride 94 mmol/L (98-107); Glucose 201 mg/dL (65-115); Osmolality Calculated 284 mOsm/kg (285-295); Potassium 3.5 mmol/L (3.5-5.1); Sodium 135 mmol/L (136-145)
[2019-09-05] MEDS: amiodarone 200 mg Tablet 400 MG PO ×3 (05:40→21:34)
[2019-09-05] MEDS: bumetanide 0.25 mg/mL SDV 10 mL 1 MG IV (05:41)
[2019-09-05 06:42] LABS: Glucose Point of Care 214 mg/dL (70-110)
[2019-09-05 07:55] LABS: Partial Thromboplastin Time 36.2 SECONDS (23.9-36.7)
[2019-09-05] MEDS: pantoprazole DR 40 mg Tablet PO (07:58)
[2019-09-05] MEDS: losartan 50 mg Tablet 25 MG PO (07:58)
[2019-09-05] MEDS: calcitriol 0.25 mcg Capsule PO (07:58)
[2019-09-05] MEDS: ferrous sulfate EC 325 mg Tablet PO (07:59)
[2019-09-05] MEDS: aspirin 81 mg EC Tablet PO (08:00)
[2019-09-05] MEDS: docusate sodium 100 mg Capsule PO ×2 (08:00→17:25)
[2019-09-05] MEDS: metoprolol tartrate 50 mg Tablet PO ×2 (08:00→17:25)
[2019-09-05] MEDS: isosorbide mononitrate ER 60 mg Tablet 120 MG PO (08:00)
[2019-09-05] MEDS: tamsulosin 0.4 mg Capsule 0.8 MG PO (08:01)
--- NOTE | 2019-09-05 09:24 | PC.SOCIAL ---
IMM Update Pg 2 of IMM Given and explained to patient who verbalized understanding. Signed, dated, timed, and placed in chart. Copy provided to patient.
[2019-09-05] MEDS: acetaminophen 325 mg Tablet 650 MG PO (09:35)
--- NOTE | 2019-09-05 09:52 | P.PN_ITS ---
Subjective Subjective: Interval history: Had 750 mL urine output overnight, on heparin drip (day 4), AM labs noted, improved Hg and renal function. Patient seen and examined, resting comfortably in bed, seems to be in good spirits, no complaints currently. Got some sleep last night though not as much as he would have liked. Remains in sinus rhythm per telemetry review. Medications: Reviewed: Yes Medication Review Details: Active Medications Generic Name Dose Route Start Last Admin Trade Name Freq PRN Reason Stop Dose Admin Acetaminophen 650 mg 09/02/19 18:02 09/05/19 09:35 Tylenol PO 650 mg Q6H PRN Administration Mild/Mod Pain Or Temp >/= 101 Albuterol/Ipratrop ium 3 ml 09/02/19 18:07 Duoneb INHALATION Q6H.RESPIRATORY P RN SHORTNESS OF INDU TH Amiodarone HCl 400 mg 09/03/19 19:45 09/05/19 05:40 Cordarone PO 400 mg Q8H SHOLA Administration Aspirin 81 mg 09/03/19 09:00 09/05/19 08:00 Aspirin Ec PO 81 mg DAILY SHOLA Administration Atorvastatin Calci um 40 mg 09/02/19 21:00 09/04/19 21:11 Lipitor PO 40 mg BEDTIME SHOLA Administration Bumetanide 1 mg 09/02/19 18:15 09/05/19 05:41 Bumex IV 1 mg Q12H SHOLA Administration Calcitriol 0.25 mcg 09/03/19 09:00 09/05/19 07:58 Rocaltrol PO 0.25 mcg DAILY SHOLA Administration Dextrose 25 ml 09/02/19 18:07 D50w IVP ONCE PRN hypoglycemia prot ocol Protocol Dextrose 50 ml 09/02/19 18:07 D50w IVP PRN PRN hypoglycemia prot ocol Protocol Docusate Sodium 100 mg 09/03/19 09:00 09/05/19 08:00 Colace PO 100 mg BID SHOLA Administration Ferrous Sulfate 325 mg 09/03/19 08:00 09/05/19 07:59 Ferrous Sulfate PO 325 mg BREAKFAST SHOLA Administration Glucagon 1 mg 09/02/19 18:07 Glucagen IM ONCE PRN Adult Acute Hypog lycemia Prot. Protocol Heparin Sodium (Be ef Lung) 0 unit 09/02/19 17:14 Heparin IV PRN PRN Heparin weight-ba se protocol Protocol Heparin Sodium/Sod ium Chloride 25,000 unit in 50 0 mls @ 0 mls/hr 09/02/19 17:15 09/05/19 09:31 Heparin Drip IV 11.9 unit/kg/hr .Q0M SHOLA 27 mls/hr Titration Protocol Per Protocol Dextrose 500 mls @ 100 mls /hr 09/02/19 18:07 D5w IV ONCE PRN Adult Acute Hypog lycemia Prot Protocol Diltiazem HCl 125 mg/ Sodium 125 mls @ 0 mls/h r 09/03/19 00:30 09/03/19 02:30 Chloride IV 0 mg/hr .Q0M SHOLA 0 mls/hr Titration Protocol Per Protocol Insulin Aspart 0 unit 09/02/19 21:00 09/05/19 07:56 Novolog SUBCUT 6 unit WM&BEDTIME SHOLA Administration Protocol Insulin Aspart 10 unit 09/05/19 07:00 09/05/19 07:57 Novolog SUBCUT 10 unit AC SHOLA Administration Insulin Glargine 10 unit 09/04/19 21:00 09/04/19 21:10 Lantus SUBCUT 10 unit BEDTIME SHOLA Administration Isosorbide Mononit rate 120 mg 09/03/19 09:00 09/05/19 08:00 Imdur PO 120 mg DAILY SHOLA Administration Losartan Potassium 25 mg 09/03/19 09:00 09/05/19 07:58 Cozaar PO 25 mg DAILY SHOLA Administration Metoprolol Tartrat e 50 mg 09/03/19 09:00 09/05/19 08:00 Lopressor PO 50 mg BID SHOLA Administration Pantoprazole Sodiu m 40 mg 09/03/19 09:00 09/05/19 07:58 Protonix PO 40 mg DAILY SHOLA Administration Tamsulosin HCl 0.8 mg 09/03/19 09:00 09/05/19 08:01 Flomax PO 0.8 mg DAILY SHOLA Administration Zolpidem Tartrate 5 mg 09/04/19 19:02 09/04/19 21:11 Ambien PO 5 mg BEDTIME PRN Administration INSOMNIA No Known Allergies Allergy (Verified 08/22/19 11:12) Vitals/I&O/Wt Last Vital Signs Temp 98.0 F 09/05/19 07:37 Pulse 78 09/05/19 07:37 Resp 23 H 09/05/19 07:37 BP 143/73 09/05/19 07:58 Pulse Ox 100 09/05/19 07:37 09/04/19 09/05/19 09/05/19 22:59 06:59 14:59 Intake Total 139.333 / 1771.783 239.8 / 2011.583 615.4 / 615.4 Output Total 300 / 600 550 / 1150 150 / 150 Balance -160.667 / 1171.783 -310.2 / 861.583 465.4 / 465.4 Weight last 48 hrs Weight 123.967 kg Weight 121.835 kg Weight 121.563 kg Physical Exam Const: COMMON NORMALS: no apparent distress and oriented x3 GENERAL APPEARANCE: cooperative and comfortable NUTRITIONAL APPEARANCE: obese morbidly obese ORIENTATION/CONSCIOUSNESS: Yes awake HENMT: COMMON NORMALS: normocephalic, head/scalp atraumatic and moist oral mucous membranes HEAD & SCALP: normocephalic and atraumatic GENERAL EAR: hearing grossly impaired Eye: COMMON NORMALS: PERRL, EOMs intact bilaterally and conjunctivae normal CONJUNCTIVA: Yes conjunctivae normal PUPIL: Yes PERRL Neck/C-Spine: COMMON NORMALS: full ROM GENERAL: Yes normal visual inspection and Yes trachea midline Resp: COMMON NORMALS: normal respiratory effort, no retractions and no use of accessory muscles EFFORT & INSPECTION: Yes able to speak in complete sentences, Yes symmetric chest movement and No tachypneic AUSCULTATION: diminished lung sounds OTHER: -on 2 L NC Cardio: COMMON NORMALS: regular rate, regular rhythm, S1 normal heart sound a nd S2 normal heart sound RATE: regular rate RHYTHM: regular rhythm HEART SOUNDS: S1 normal, S2 normal and murmur systolic GI: COMMON NORMALS: normal to inspection, nondistended, normoactive bowel sounds, soft to palpation and non-tender INSPECTION: No abdominal distension and Yes central obesity PALPATION: Yes soft Back/Pelvis: COMMON NORMALS: thoracic and lumbar spine normal to inspection Extremity: COMMON NORMALS: normal to inspection, full ROM and no pedal edema GENERAL: Yes edema (trace edema of bilateral LE; M[place] hose on) Neuro: COMMON NORMALS: oriented x3, moves all extremities, no focal motor deficits and no sensory deficits noted Psych: COMMON NORMALS: mental status grossly normal, thought process normal, cooperative, affect normal and speech normal SPEECH: Yes normal speech THOUGHT PROCESS: normal thought process Skin: COMMON NORMALS: no rashes or lesions noted, no jaundice, no petechiae and no mottling GENERAL SKIN EXAM: no rashes or lesions noted OTHER: - chronic venous stasis dermatitis Data : 09/05/19 03:23 09/05/19 03:23 A&P Assessment and plan (1) Non-ST elevation [place] (NSTEMI): -noted elevation of gen 5 troponins with delta > 2500, significantly h igher than previously noted -telemetry monitoring -on heparin drip -on statin, BB, aspirin; monitor for bleeding as has known anemia -has not had any chest pain/discomfort -could be related to atrial fibrillation, CHF exacerbation -Cardiology consult by Dr. Ordonez/Dr. Smalls appreciated -Echo done during most recent admission: EF=55%, G2DD, moderate to severe , trace MR, mild DE. Limited echo-EF=40%, hypokinesia of the inferolateral wall segments, mild hypokinesia of the apical segments -had prior cath done in 07/2018 showing severe 3-vessel CAD, all grafts patent -poor candidate for intervention given CKD and anemia Status: Acute Code(s): I21.4 - Non-ST elevation (NSTEMI) myocardial infarction (2) Congestive heart failure: -has acute on chronic diastolic CHF exacerbation as evidenced by elevated BNP (14,689), LE edema (some of which is chronic), fluid overload on imaging -Echo done during most recent admission: EF=55%, G2DD, moderate to severe , trace MR, mild DE -IV diuresis with Bumex due to renal impairment; hold Lasix and Metolazone; will switch to oral Bumex as better compensated clinically -daily weights, monitor Is & Os -continue to monitor renal function, lytes with diuresis Status: Acute Qualifiers: Heart failure chronicity: acute on chronic Heart failure type: diastolic Qualified Code(s): I50.33 - Acute on chronic diastolic (congestive) heart failure Code(s): I50.9 - Heart failure, unspecified (3) A-fib: -appears to be new onset, no mention of arrhythmia during most recent admission, likely paroxysmal given overnight events -telemetry monitoring -converted to NSR spontaneously initially and then required short time on cardizem drip that has since been weaned off -VSS, continue to monitor -could have been triggered by CHF exacerbation -on Amiodarone 400 mg TID Status: Acute Qualifiers: Atrial fibrillation type: unspecified Qualified Code(s): I48.91 - Unspecified atrial fibrillation Code(s): I48.91 - Unspecified atrial fibrillation (4) Aortic stenosis: -has known moderate to severe aortic stenosis per Echo done last week Status: Chronic Qualifiers: Cardiac valve disease etiology: nonrheumatic Qualified Code(s): I35.0 - Nonrheumatic aortic (valve) stenosis Code(s): I35.0 - Nonrheumatic aortic (valve) stenosis (5) Coronary artery disease: -has known CAD s/p 5-vessel CABG -on statin, long acting nitrate Status: Chronic Qualifiers: Associated angina: angina presence unspecified Coronary Disease- Associated Artery/Lesion type: unspecified vessel or lesion type [place] vs. 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 -A1c at goal-6.4 -accucheks, ISS, hypoglycemia precautions Status: Chronic Qualifiers: Chronic kidney disease stage: stage 3 (moderate) Diabetes mellitus complication detail: with chronic kidney disease Diabetes mellitus complication status: with kidney complications Diabetes mellitus ad terminal makeup operator insulin use: with residential use Qualified Code(s): E11.22 - Type 2 diabetes mellitus with diabetic chronic kidney disease; N18.3 - Chronic kidney disease, stage 3 (moderate); 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 Code(s): E11.9 - Type 2 diabetes mellitus without complications (8) Acute kidney injury: -has NORMAN on CKD stage 3-4; baseline Cr is around 1.8-2.0 -avoid nephrotoxins, renally dose meds -renal US done 08/24 was negative -continue to monitor urine output -was evaluated by Nephrology during last admission -on low dose ACEi, continue with caution Status: Acute Code(s): N17.9 - Acute kidney failure, unspecified Additional A&P Information -Morbid obesity: BMI-39 kg/m2 -HTN -Hyperlipidemia; on statin -GERD -Chronic normocytic anemia; on iron replacement, received 1 unit PRBCs during last admission. Has had GI workup in 04/2019 with EGD and colonoscopy; gastric ulcers and moderate diverticulosis and removal of sessile polyps respectively. Baseline Hg was previously 12, now seems to be 9-10. Monitor H/H with anticoagulation, improved today (7.7->8.6). 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 Time Spent in Patient Care: Greater than 35 minutes (>than 50% of time spent in counselling and/or direct pt care on unit) . Coding Level of Care Code Acute Insurance Producer for Chg Fwd Exam Comprehensive Diagnoses Non-ST elevation HI (NSTEMI) I21.4 Congestive heart failure I50.33 Heart failure chronicity: acute on chronic Heart failure type: diastolic A-fib I48.91 Atrial fibrillation type: unspecified Aortic stenosis I35.0 Cardiac valve disease etiology: nonrheumatic Coronary artery disease I25.10 Associated angina: angina presence unspecified Coronary Disease-Associated Artery/Lesion type: unspecified vessel or lesion type [place] vs. transplanted heart: [place] heart Hyperlipidemia E78.5 Hyperlipidemia type: unspecified Type 2 diabetes mellitus E11.22; N18.3; Z79.4 Chronic kidney disease stage: stage 3 (moderate) Diabetes mellitus complication detail: with chronic kidney disease Diabetes mellitus complication status: with kidney complications Diabetes mellitus residential insulin use: with ad terminal makeup operator use Acute kidney injury N17.9
[2019-09-05 11:34] LABS: Glucose Point of Care 324 mg/dL (70-110)
--- NOTE | 2019-09-05 12:21 | PM.PN ---
Subjective Subjective: Interval history: Remains in sinus rhythm. He denies any complain Medications: Reviewed: Yes Medication Review Details: Active Medications Generic Name Dose Route Start Last Admin Trade Name Freq PRN Reason Stop Dose Admin Acetaminophen 650 mg 09/02/19 18:02 09/05/19 09:35 Tylenol PO 650 mg Q6H PRN Administration Mild/Mod Pain Or Temp >/= 101 Albuterol/Ipratrop ium 3 ml 09/02/19 18:07 Duoneb INHALATION Q6H.RESPIRATORY P RN SHORTNESS OF INDU TH Amiodarone HCl 400 mg 09/03/19 19:45 09/05/19 05:40 Cordarone PO 400 mg Q8H SHOLA Administration Aspirin 81 mg 09/03/19 09:00 09/05/19 08:00 Aspirin Ec PO 81 mg DAILY SHOLA Administration Atorvastatin Calci um 40 mg 09/02/19 21:00 09/04/19 21:11 Lipitor PO 40 mg BEDTIME SHOLA Administration Bumetanide 1 mg 09/02/19 18:15 09/05/19 05:41 Bumex IV 1 mg Q12H SHOLA Administration Calcitriol 0.25 mcg 09/03/19 09:00 09/05/19 07:58 Rocaltrol PO 0.25 mcg DAILY SHOLA Administration Dextrose 25 ml 09/02/19 18:07 D50w IVP ONCE PRN hypoglycemia prot ocol Protocol Dextrose 50 ml 09/02/19 18:07 D50w IVP PRN PRN hypoglycemia prot ocol Protocol Docusate Sodium 100 mg 09/03/19 09:00 09/05/19 08:00 Colace PO 100 mg BID SHOLA Administration Ferrous Sulfate 325 mg 09/03/19 08:00 09/05/19 07:59 Ferrous Sulfate PO 325 mg BREAKFAST SHOLA Administration Glucagon 1 mg 09/02/19 18:07 Glucagen IM ONCE PRN Adult Acute Hypog lycemia Prot. Protocol Heparin Sodium (Be ef Lung) 0 unit 09/02/19 17:14 Heparin IV PRN PRN Heparin weight-ba se protocol Protocol Heparin Sodium/Sod ium Chloride 25,000 unit in 50 0 mls @ 0 mls/hr 09/02/19 17:15 09/05/19 09:31 Heparin Drip IV 11.9 unit/kg/hr .Q0M SHOLA 27 mls/hr Titration Protocol Per Protocol Dextrose 500 mls @ 100 mls /hr 09/02/19 18:07 D5w IV ONCE PRN Adult Acute Hypog lycemia Prot Protocol Diltiazem HCl 125 mg/ Sodium 125 mls @ 0 mls/h r 09/03/19 00:30 09/03/19 02:30 Chloride IV 0 mg/hr .Q0M SHOLA 0 mls/hr Titration Protocol Per Protocol Insulin Aspart 0 unit 09/02/19 21:00 09/05/19 07:56 Novolog SUBCUT 6 unit WM&BEDTIME SHOLA Administration Protocol Insulin Aspart 10 unit 09/05/19 07:00 09/05/19 07:57 Novolog SUBCUT 10 unit AC SHOLA Administration Insulin Glargine 10 unit 09/04/19 21:00 09/04/19 21:10 Lantus SUBCUT 10 unit BEDTIME SHOLA Administration Isosorbide Mononit rate 120 mg 09/03/19 09:00 09/05/19 08:00 Imdur PO 120 mg DAILY SHOLA Administration Losartan Potassium 25 mg 09/03/19 09:00 09/05/19 07:58 Cozaar PO 25 mg DAILY SHOLA Administration Metoprolol Tartrat e 50 mg 09/03/19 09:00 09/05/19 08:00 Lopressor PO 50 mg BID SHOLA Administration Pantoprazole Sodiu m 40 mg 09/03/19 09:00 09/05/19 07:58 Protonix PO 40 mg DAILY SHOLA Administration Tamsulosin HCl 0.8 mg 09/03/19 09:00 09/05/19 08:01 Flomax PO 0.8 mg DAILY SHOLA Administration Zolpidem Tartrate 5 mg 09/04/19 19:02 09/04/19 21:11 Ambien PO 5 mg BEDTIME PRN Administration INSOMNIA No Known Allergies Allergy (Verified 08/22/19 11:12) Vitals/I&O/Wt Last Vital Signs Temp 98.0 F 09/05/19 07:37 Pulse 80 09/05/19 11:09 Resp 19 H 09/05/19 11:09 BP 144/74 09/05/19 11:09 Pulse Ox 100 09/05/19 11:09 09/04/19 09/05/19 09/05/19 22:59 06:59 14:59 Intake Total 139.333 / 1771.783 239.8 / 2011.583 615.4 / 615.4 Output Total 300 / 600 550 / 1150 350 / 350 Balance -160.667 / 1171.783 -310.2 / 861.583 265.4 / 265.4 Weight last 48 hrs Weight 273 lb 4.8 oz Weight 268 lb 9.6 oz Weight 268 lb Physical Exam Narrative: EXAM NARRATIVE: GENERAL: Patient is alert, awake and oriented x3. NECK: No jugular vein distension. HEENT: No cyanosis. No icterus. No pallor. HEART: Regular S1 and S2. 2/6 sys murmur, rub or gallop. LUNGS: Clear to auscultate bilaterally. ABDOMEN: Soft, nontender and nondistended. Positive bowel sounds. No guarding, rebound or tenderness. CENTRAL NERVOUS SYSTEM: Grossly nonfocal. EXTREMITIES: Lower extremities without edema bilaterally. Data : 09/05/19 03:23 09/05/19 03:23 A&P Assessment and plan (1) Non-ST elevation [place] (NSTEMI): Patient remained stable. Continue current regimen no intervention at this point Due to Renal failure and high possibility of contrast induced nephropathy. Status: Acute Code(s): I21.4 - Non-ST elevation (NSTEMI) myocardial infarction (2) Atherosclerotic heart disease of [place] coronary artery with other forms of angina pectoris: Continue to treat him medically since patient has patent prior all 3 grafts nearly 1 year ago however he has chronically occluded [place] vessels. Due to worsening of creatinine and renal function will continue to treat him medically since he is stable denies any chest pain. Status: Acute Code(s): I25.118 - Atherosclerotic heart disease of [place] coronary artery with other forms of angina pectoris (3) Congestive heart failure with left ventricular systolic dysfunction: Appears to be compensated. We will switch patient to by mouth diuretics Status: Acute Code(s): I50.20 - Unspecified systolic (congestive) heart failure (4) Acute kidney injury superimposed on chronic kidney disease: Slightly improved. Continue to monitor Status: Acute Code(s): N17.9 - Acute kidney failure, unspecified; N18.9 - Chronic kidney disease, unspecified (5) Intermittent atrial fibrillation: Patient is in sinus rhythm. Continue amiodarone.Patient is on heparin. May not be a good candidate for anticoagulation Due to chronic anemia and possible GI bleed Status: Acute Code(s): I48.0 - Paroxysmal atrial fibrillation (6) Chronic disease anemia: As per medicine. Will keep hemoglobin around 10 Status: Acute Code(s): D63.8 - Anemia in other chronic diseases classified elsewhere (7) Aortic valve stenosis, acquired: Moderate aortic stenosis. We will continue to monitor him closely for possible TAVR in the future Status: Acute Code(s): I35.0 - Nonrheumatic aortic (valve) stenosis Additional A&P Information Her problems are leukocytosis Mild hypokalemia Type 2 diabetes Based on the patient clinical progress and the results of the above, further recommendations will be made. Thank you for the opportunity to eval this patient make these recommendations. Attestations Medical Necessity Statement*: Required continuation hospitalization for above defined care Coding Level of Care Code Established Pt Acute It Security Specialist for Chg Fwd Patient Type Established History Expanded Problem Focused Exam Expanded Problem Focused Medical Decision Making Moderate Complexity Diagnoses Non-ST elevation [place] (NSTEMI) I21.4 Atherosclerotic heart disease of [place] coronary artery with other forms of angina pectoris I25.118 Congestive heart failure with left ventricular systolic dysfunction I50.20 Acute kidney injury superimposed on chronic kidney disease N17.9; N18.9 Intermittent atrial fibrillation I48.0 Chronic disease anemia D63.8 Aortic valve stenosis, acquired I35.0
[2019-09-05] MEDS: bumetanide 1 mg Tablet 2 MG PO (13:53)
[2019-09-05 15:56] LABS: Partial Thromboplastin Time 109.6 SECONDS (23.9-36.7)
[2019-09-05 16:33] LABS: Glucose Point of Care 232 mg/dL (70-110)
[2019-09-05] MEDS: insulin glargine 100 units/1 mL 10 UNIT SUBCUT (21:30)
[2019-09-05] MEDS: heparin drip 25,000 UNIT/500 ML PREMIX 27 UNIT IV (21:32)
[2019-09-05] MEDS: atorvastatin 40 mg Tablet PO (21:33)
[2019-09-05] MEDS: zolpidem 5 mg Tablet PO (21:34)
[2019-09-05 21:39] LABS: Glucose Point of Care 216 mg/dL (70-110)
[2019-09-06] VITALS (8 sets, daily range): BP systolic 115–160; BP diastolic 60–81; PULSE 61–90; RESP 7–20; TEMP 36.6–36.8; O2SAT 92–99
--- NOTE | 2019-09-06 00:10 | PC.NURSE ---
Received phone call from lab stating that the PTT will have to be redrawn secondary to first specimen clotting. Will monitor
[2019-09-06 00:47] LABS: Partial Thromboplastin Time 47.4 SECONDS (23.9-36.7)
[2019-09-06] MEDS: heparin 5,000 unit/mL INJ 1 mL IV (01:35)
--- NOTE | 2019-09-06 02:15 | PC.NURSE ---
Sitting on side of bed. Denies complaints. States, I just can't get comfortable is all. Archiebert given per patient request. Will monitor.
[2019-09-06] MEDS: amiodarone 200 mg Tablet 400 MG PO ×3 (05:08→21:43)
--- NOTE | 2019-09-06 06:12 | PC.NURSE ---
Patient has not slept very well this shift. Has been sitting on side of the bed most of this shift. Denies pain. Just couldn't get comfortable. Will monitor.
[2019-09-06 06:38] LABS: Glucose Point of Care 304 mg/dL (70-110)
--- NOTE | 2019-09-06 08:00 | PM.PN ---
Subjective Subjective: Interval history: Poor sleep last night seems to spend most of his day sleeping which is likely contributing to this. Labs noted, stable hemoglobin, stable renal function. Had urine output of 950 mL. at bedside, resting well, no complaints currently, heparin drip discontinued this morning. Maintain normal sinus rhythm by telemetry review. Medications: Reviewed: Yes Medication Review Details: Active Medications Generic Name Dose Route Start Last Admin Trade Name Freq PRN Reason Stop Dose Admin Acetaminophen 650 mg 09/02/19 18:02 09/05/19 09:35 Tylenol PO 650 mg Q6H PRN Administration Mild/Mod Pain Or Temp >/= 101 Albuterol/Ipratrop ium 3 ml 09/02/19 18:07 Duoneb INHALATION Q6H.RESPIRATORY P RN SHORTNESS OF INDU TH Amiodarone HCl 400 mg 09/03/19 19:45 09/06/19 05:08 Cordarone PO 400 mg Q8H SHOLA Administration Aspirin 81 mg 09/03/19 09:00 09/05/19 08:00 Aspirin Ec PO 81 mg DAILY SHOLA Administration Atorvastatin Calci um 40 mg 09/02/19 21:00 09/05/19 21:33 Lipitor PO 40 mg BEDTIME SHOLA Administration Bumetanide 2 mg 09/05/19 12:35 09/05/19 13:53 Bumex PO 2 mg DAILY SHOLA Administration Calcitriol 0.25 mcg 09/03/19 09:00 09/05/19 07:58 Rocaltrol PO 0.25 mcg DAILY SHOLA Administration Dextrose 25 ml 09/02/19 18:07 D50w IVP ONCE PRN hypoglycemia prot ocol Protocol Dextrose 50 ml 09/02/19 18:07 D50w IVP PRN PRN hypoglycemia prot ocol Protocol Docusate Sodium 100 mg 09/03/19 09:00 09/05/19 17:25 Colace PO 100 mg BID SHOLA Administration Ferrous Sulfate 325 mg 09/03/19 08:00 09/05/19 07:59 Ferrous Sulfate PO 325 mg BREAKFAST SHOLA Administration Glucagon 1 mg 09/02/19 18:07 Glucagen IM ONCE PRN Adult Acute Hypog lycemia Prot. Protocol Heparin Sodium (Be ef Lung) 0 unit 09/02/19 17:14 09/06/19 01:35 Heparin IV 2,500 unit PRN PRN Administration Heparin weight-ba se protocol Protocol Heparin Sodium/Sod ium Chloride 25,000 unit in 50 0 mls @ 0 mls/hr 09/02/19 17:15 09/06/19 01:39 Heparin Drip IV 22 unit/kg/hr .Q0M SHOLA 49.9 mls/hr Titration Protocol Per Protocol Dextrose 500 mls @ 100 mls /hr 09/02/19 18:07 D5w IV ONCE PRN Adult Acute Hypog lycemia Prot Protocol Diltiazem HCl 125 mg/ Sodium 125 mls @ 0 mls/h r 09/03/19 00:30 09/03/19 02:30 Chloride IV 0 mg/hr .Q0M SHOLA 0 mls/hr Titration Protocol Per Protocol Insulin Aspart 0 unit 09/02/19 21:00 09/05/19 21:34 Novolog SUBCUT 6 unit WM&BEDTIME SHOLA Administration Protocol Insulin Aspart 15 unit 09/06/19 11:00 Novolog SUBCUT AC SHOLA Insulin Glargine 20 unit 09/06/19 21:00 Lantus SUBCUT BEDTIME SHOLA Isosorbide Mononit rate 120 mg 09/03/19 09:00 09/05/19 08:00 Imdur PO 120 mg DAILY SHOLA Administration Losartan Potassium 25 mg 09/03/19 09:00 09/05/19 07:58 Cozaar PO 25 mg DAILY SHOLA Administration Metoprolol Tartrat e 50 mg 09/03/19 09:00 09/05/19 17:25 Lopressor PO 50 mg BID SHOLA Administration Pantoprazole Sodiu m 40 mg 09/03/19 09:00 09/05/19 07:58 Protonix PO 40 mg DAILY SHOLA Administration Tamsulosin HCl 0.8 mg 09/03/19 09:00 09/05/19 08:01 Flomax PO 0.8 mg DAILY SHOLA Administration Zolpidem Tartrate 5 mg 09/04/19 19:02 09/05/19 21:34 Ambien PO 5 mg BEDTIME PRN Administration INSOMNIA No Known Allergies Allergy (Verified 08/22/19 11:12) Vitals/I&O/Wt Last Vital Signs Temp 98.3 F 09/06/19 04:00 Pulse 87 09/06/19 07:36 Resp 18 09/06/19 07:36 BP 121/67 09/06/19 07:36 Pulse Ox 92 09/06/19 07:36 09/05/19 09/06/19 09/06/19 22:59 06:59 14:59 Intake Total 564.45 / 1679.85 261.15 / 1941.00 Output Total 550 / 1150 650 / 1800 400 / 400 Balance 14.45 / 529.85 -388.85 / 141.00 -400 / -400 Weight last 48 hrs Weight 121.608 kg Weight 123.967 kg Physical Exam Const: COMMON NORMALS: no apparent distress and oriented x3 GENERAL APPEARANCE: cooperative and comfortable NUTRITIONAL APPEARANCE: obese morbidly obese ORIENTATION/CONSCIOUSNESS: Yes awake HENMT: COMMON NORMALS: normocephalic, head/scalp atraumatic and moist oral mucous membranes HEAD & SCALP: normocephalic and atraumatic GENERAL EAR: hearing grossly impaired Eye: COMMON NORMALS: PERRL, EOMs intact bilaterally and conjunctivae normal CONJUNCTIVA: Yes conjunctivae normal PUPIL: Yes PERRL Neck/C-Spine: COMMON NORMALS: full ROM GENERAL: Yes normal visual inspection and Yes trachea midline Resp: COMMON NORMALS: normal respiratory effort, no retractions and no use of accessory muscles EFFORT & INSPECTION: Yes able to speak in complete sentences, Yes symmetric chest movement and No tachypneic AUSCULTATION: diminished lung sounds OTHER: -on 2 L NC Cardio: COMMON NORMALS: regular rate, regular rhythm, S1 normal heart sound and S2 normal heart sound RATE: regular rate RHYTHM: regular rhythm HEART SOUNDS: S1 normal, S2 normal and murmur systolic GI: COMMON NORMALS: normal to inspection, nondistended, normoactive bowel sounds, soft to palpation and non-tender INSPECTION: No abdominal distension and Yes central obesity PALPATION: Yes soft Back/Pelvis: COMMON NORMALS: thoracic and lumbar spine normal to inspection Extremity: COMMON NORMALS: normal to inspection, full ROM and no pedal edema GENERAL: Yes edema (trace edema of bilateral LE; MENDOZA hose on) Neuro: COMMON NORMALS: oriented x3, moves all extremities, no focal motor deficits and no sensory deficits noted Psych: COMMON NORMALS: mental status grossly normal, thought process normal, cooperative, affect normal and speech normal SPEECH: Yes normal speech THOUGHT PROCESS: normal thought process Skin: COMMON NORMALS: no rashes or lesions noted, no jaundice, no petechiae and no mottling GENERAL SKIN EXAM: no rashes or lesions noted OTHER: -chronic venous stasis dermatitis Data : 09/06/19 07:34 09/06/19 07:34 A&P Assessment and plan (1) Non-ST elevation [place] (NSTEMI): -noted elevation of gen 5 troponins with delta > 2500, significantly higher than previously noted -telemetry monitoring -d/c heparin drip -on statin, BB, aspirin; monitor for bleeding as has known anemia -has not had any chest pain/discomfort -could be related to atrial fibrillation, CHF exacerbation -Cardiology consult by Dr. Ordonez/Dr. Smalls appreciated -Echo done during most recent admission: EF=55%, G2DD, moderate to severe , trace MR, mild WI. Limited echo-EF=40%, hypokinesia of the inferolateral wall segments, mild hypokinesia of the apical segments -had prior cath done in 07/2018 showing severe 3-vessel CAD, all grafts patent -poor candidate for intervention given CKD and anemia Status: Acute Code(s): I21.4 - Non-ST elevation (NSTEMI) myocardial infarction (2) Congestive heart failure: -has acute on chronic diastolic CHF exacerbation as evidenced by elevated BNP (14,689), LE edema (some of which is chronic), fluid overload on imaging -Echo done during most recent admission: EF=55%, G2DD, moderate to severe , trace MR, mild WI -off IV diuresis with Bumex due to renal impairment; hold Lasix and Metolazone; switched to oral Bumex as better compensated clinically -daily weights, monitor Is & Os -continue to monitor renal function, lytes with diuresis Status: Acute Qualifiers: Heart failure chronicity: acute on chronic Heart failure type: diastolic Qualified Code(s): I50.33 - Acute on chronic diastolic (congestive) heart failure Code(s): I50.9 - Heart failure, unspecified (3) A-fib: -appears to be new onset, no mention of arrhythmia during most recent admission, likely paroxysmal given overnight events -telemetry monitoring -converted to NSR spontaneously initially and then required short time on cardizem drip that has since been weaned off -VSS, continue to monitor -could have been triggered by CHF exacerbation -on Amiodarone 400 mg TID Status: Acute Qualifiers: Atrial fibrillation type: unspecified Qualified Code(s): I48.91 - Unspecified atrial fibrillation Code(s): I48.91 - Unspecified atrial fibrillation (4) Aortic stenosis: -has known moderate to severe aortic stenosis per Echo done last week Status: Chronic Qualifiers: Cardiac valve disease etiology: nonrheumatic Qualified Code(s): I35.0 - Nonrheumatic aortic (valve) stenosis Code(s): I35.0 - Nonrheumatic aortic (valve) stenosis (5) Coronary artery disease: -has known CAD s/p 5-vessel CABG -on statin, long acting nitrate Status: Chronic Qualifiers: Associated angina: angina presence unspecified Coronary Disease-Associated Artery/Lesion type: unspecified vessel or lesion type [place] vs. 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 -A1c at goal-6.4 -accucheks, ISS, hypoglycemia precautions Status: Chronic Qualifiers: Chronic kidney disease stage: stage 3 (moderate) Diabetes mellitus complication detail: with chronic kidney disease Diabetes mellitus complication status: with kidney complications Diabetes mellitus mcfp insulin use: with saxophone teacher use Qualified Code(s): E11.22 - Type 2 diabetes mellitus with diabetic chronic kidney disease; N18.3 - Chronic kidney disease, stage 3 (moderate); Z79.4 - residential (current) use of insulin Code(s): E11.9 - Type 2 diabetes mellitus without complications (8) Acute kidney injury: -has NORMAN on CKD stage 3-4; baseline Cr is around 1.8-2.0 -avoid nephrotoxins, renally dose meds -renal US done 08/24 was negative -continue to monitor urine output -was evaluated by Nephrology during last admission -on low dose ACEi, continue with caution Status: Acute Code(s): N17.9 - Acute kidney failure, unspecified Additional A&P Information -Morbid obesity: BMI-39 kg/m2 -HTN -Hyperlipidemia; on statin -GERD -Chronic normocytic anemia; on iron replacement, received 1 unit PRBCs during last admission. Has had GI workup in 04/2019 with EGD and colonoscopy; gastric ulcers and moderate diverticulosis and removal of sessile polyps respectively. Baseline Hg was previously 12, now seems to be 9-10. Monitor H/H with anticoagulation, improved today (7.7->8.6). Would need to diurese if need for blood transfusion due to risk of fluid overload -Oxygen dependent COPD; 3 L NC at baseline; no acute exacerbation currently -SCOOTER -Generalized weakness, deconditioning: PT evaluation appreciated, d/c home recommended, ambulates with walker -Hard of hearing chronically -continue meds as ordered -GI ppx with PPI -DVT ppx not needed as on heparin drip -Dispo: home with continued HH services ([facility]) -Code status: DNR/DNI Attestations Medical Necessity Statement*: Patient requires hospitalization for continued management of NSTEMI, as well as acute CHF exacerbation. Time Spent in Patient Care: Greater than 35 minutes (>than 50% of time spent in counselling and/or direct pt care on unit). Coding Level of Care Code Acute Cad Application Support Specialist for Chg Fwd Exam Comprehensive Diagnoses Non-ST elevation [place] (NSTEMI) I21.4 Congestive heart failure I50.33 Heart failure chronicity: acute on chronic Heart failure type: diastolic A-fib I48.91 Atrial fibrillation type: unspecified Aortic stenosis I35.0 Cardiac valve disease etiology: nonrheumatic Coronary artery disease I25.10 Associated angina: angina presence unspecified Coronary Disease-Associated Artery/Lesion type: unspecified vessel or lesion type [place] vs. transplanted heart: [place] heart Hyperlipidemia E78.5 Hyperlipidemia type: unspecified Type 2 diabetes mellitus E11.22; N18.3; Z79.4 Chronic kidney disease stage: stage 3 (moderate) Diabetes mellitus complication detail: with chronic kidney disease Diabetes mellitus complication status: with kidney complications Diabetes mellitus saxophone teacher insulin use: with mcfp use Acute kidney injury N17.9
[2019-09-06 08:12] LABS: Basophils % 0.3 %; Eosinophils # 0.3 10^3/uL (0.0-0.8); Eosinophils % 2.3 %; Hematocrit 27.7 % (42.0-52.0); Hemoglobin 8.7 g/dL (11.7-16.6); Lymphocytes # 0.9 10^3/uL (0.8-4.8); Lymphocytes % 6.8 %; Mean Corpuscular HGB Conc 31.4 g/dL (30.0-36.0); Mean Corpuscular Hemoglobin 29.6 pg (28.0-34.0); Mean Corpuscular Volume 94.2 fL (80-94); Mean Platelet Volume 11.7 fL (7.4-10.4); Monocytes % 7.8 %; Neutrophils # 10.6 10^3/uL (1.8-7.7); Neutrophils % 81.9 %; Nucleated Red Blood Cells % 0 %; Platelet Count 213 10^3/cmm (130-400); Red Blood Count 2.94 10^6/uL (4.1-5.3); Red Cell Distribution Width 15.5 % (12.1-15.1); White Blood Count 12.9 10^3/uL (4.0-10.0)
[2019-09-06 08:31] LABS: Anion Gap 17.7 (5-19); Blood Urea Nitrogen 57 mg/dL (8-23); Calcium 9.3 mg/dL (8.5-10.5); Carbon Dioxide 29 mmol/L (22-29); Chloride 92 mmol/L (98-107); Glucose 249 mg/dL (65-115); Osmolality Calculated 287 mOsm/kg (285-295); Potassium 3.7 mmol/L (3.5-5.1); Sodium 135 mmol/L (136-145)
[2019-09-06] MEDS: ferrous sulfate EC 325 mg Tablet PO (09:57)
[2019-09-06] MEDS: tamsulosin 0.4 mg Capsule 0.8 MG PO (09:58)
[2019-09-06] MEDS: bumetanide 1 mg Tablet 2 MG PO (09:58)
[2019-09-06] MEDS: losartan 50 mg Tablet 25 MG PO (09:58)
[2019-09-06] MEDS: aspirin 81 mg EC Tablet PO (09:58)
[2019-09-06] MEDS: isosorbide mononitrate ER 60 mg Tablet 120 MG PO (09:58)
[2019-09-06] MEDS: metoprolol tartrate 50 mg Tablet PO ×2 (09:59→17:36)
[2019-09-06] MEDS: pantoprazole DR 40 mg Tablet PO (09:59)
[2019-09-06] MEDS: calcitriol 0.25 mcg Capsule PO (09:59)
[2019-09-06] MEDS: docusate sodium 100 mg Capsule PO ×2 (09:59→17:36)
[2019-09-06 11:19] LABS: Glucose Point of Care 223 mg/dL (70-110)
[2019-09-06] MEDS: heparin 5,000 unit/mL INJ 1 mL 5000 UNIT SUBCUT ×2 (11:43→21:44)
[2019-09-06] MEDS: acetaminophen 325 mg Tablet 650 MG PO (13:47)
--- NOTE | 2019-09-06 16:24 | PC.OT ---
OT TREATMENT ATTEMPTED. PATIENT REPORTS THAT HE DOESN'T FEEL UP TO IT THIS AFTERNOON . AGREEABLE TO ATTEMPT TOMORROW.
[2019-09-06 16:42] LABS: Glucose Point of Care 155 mg/dL (70-110)
[2019-09-06] MEDS: zolpidem 5 mg Tablet PO (21:43)
[2019-09-06] MEDS: insulin glargine 100 units/1 mL 20 UNIT SUBCUT (21:44)
[2019-09-06] MEDS: atorvastatin 40 mg Tablet PO (21:44)
[2019-09-07] VITALS: BP 129/57; PULSE 68; RESP 8; TEMP 36.8; O2SAT 98
[2019-09-07 00:52] LABS: Glucose Point of Care 214 mg/dL (70-110)
[2019-09-07 03:49] LABS: Basophils % 0.4 %; Eosinophils # 0.4 10^3/uL (0.0-0.8); Eosinophils % 3.2 %; Hematocrit 26.7 % (42.0-52.0); Hemoglobin 8.1 g/dL (11.7-16.6); Lymphocytes # 1.1 10^3/uL (0.8-4.8); Lymphocytes % 10.3 %; Mean Corpuscular HGB Conc 30.3 g/dL (30.0-36.0); Mean Corpuscular Hemoglobin 29.9 pg (28.0-34.0); Mean Corpuscular Volume 98.5 fL (80-94); Mean Platelet Volume 11.4 fL (7.4-10.4); Monocytes # 1.2 10^3/uL (0.2-0.9); Monocytes % 10.7 %; Neutrophils # 8.2 10^3/uL (1.8-7.7); Neutrophils % 74.4 %; Nucleated Red Blood Cells % 0 %; Platelet Count 195 10^3/cmm (130-400); Red Blood Count 2.71 10^6/uL (4.1-5.3); Red Cell Distribution Width 15.7 % (12.1-15.1)
[2019-09-07 04:00] VITALS: BP 168/71; PULSE 75; RESP 10; TEMP 36.8; O2SAT 98
[2019-09-07 04:11] LABS: Anion Gap 16.6 (5-19); Blood Urea Nitrogen 58 mg/dL (8-23); Carbon Dioxide 29 mmol/L (22-29); Chloride 94 mmol/L (98-107); Glucose 152 mg/dL (65-115); Osmolality Calculated 284 mOsm/kg (285-295); Potassium 3.6 mmol/L (3.5-5.1); Sodium 136 mmol/L (136-145)
[2019-09-07] MEDS: heparin 5,000 unit/mL INJ 1 mL 5000 UNIT SUBCUT ×2 (04:28→13:16)
[2019-09-07] MEDS: amiodarone 200 mg Tablet 400 MG PO ×2 (04:28→13:17)
--- NOTE | 2019-09-07 06:24 | P.DS_ITS ---
Discharge Providers Date of Admission: 09/02/19 16:30 Date of Discharge: September 07, 2019 Attending Provider at Admission: Alexia Tidwell MD Attending Provider at Discharge: Alexia Tidwell MD Primary Care Provider: Anton Pak DO Diagnoses at Discharge Discharge Diagnosis (1) Non-ST elevation [place] (NSTEMI): Status: Acute Problem details: -noted elevation of gen 5 troponins with delta > 2500, significantly higher than previously noted -telemetry monitoring -d/c heparin drip -on statin, BB, aspirin; monitor for bleeding as has known anemia -has not had any chest pain/discomfort -could be related to atrial fibrillation, CHF exacerbation -Cardiology consult by Dr. Ordonez/Dr. Smalls appreciated -Echo done during most recent admission: EF=55%, G2DD, moderate to severe , trace MR, mild VT. Limited echo-EF=40%, hypokinesia of the inferolateral wall segments, mild hypokinesia of the apical segments -had prior cath done in 07/2018 showing severe 3-vessel CAD, all grafts patent -poor candidate for intervention given CKD and anemia Status: Acute Code(s): I21.4 - Non-ST elevation (NSTEMI) myocardial infarction (2) Congestive heart failure: -has acute on chronic diastolic CHF exacerbation as evidenced by elevated BNP (14,689), LE edema (some of which is chronic), fluid overload on imaging -Echo done during most recent admission: EF=55%, G2DD, moderate to severe , trace MR, mild VT -off IV diuresis with Bumex due to renal impairment; hold Lasix and Metolazone; switched to oral Bumex as better compensated clinically -daily weights, monitor Is & Os -continue to monitor renal function, lytes with diuresis (2) Congestive heart failure: Status: Acute Problem details: -has acute on chronic diastolic CHF exacerbation as evidenced by elevated BNP (14,689), LE edema (some of which is chronic), fluid overload on imaging -Echo done during most recent admission: EF=55%, G2DD, moderate to severe , trace MR, mild VT -off IV diuresis with Bumex due to renal impairment; hold Lasix and Metolazone; switched to oral Bumex as better compensated clinically -daily weights, monitor Is & Os -continue to monitor renal function, lytes with diuresis Qualifiers: Heart failure chronicity: acute on chronic Heart failure type: diastolic Qualified Code(s): I50.33 - Acute on chronic diastolic (congestive) heart failure (3) A-fib: Status: Resolved Problem details: -appears to be new onset, no mention of arrhythmia during most recent admission, likely paroxysmal given overnight events -telemetry monitoring -converted to NSR spontaneously initially and then required short time on cardiz em drip that has since been weaned off -VSS, continue to monitor -could have been triggered by CHF exacerbation -on Amiodarone 400 mg TID; transition to once daily dosing of Amiodarone 400 mg Qualifiers: Atrial fibrillation type: unspecified Qualified Code(s): I48.91 - Unspecified atrial fibrillation (4) Aortic stenosis: Status: Chronic Problem details: -has known moderate to severe aortic stenosis per Echo done last week Qualifiers: Cardiac valve disease etiology: nonrheumatic Qualified Code(s): I35.0 - Nonrheumatic aortic (valve) stenosis (5) Coronary artery disease: Status: Chronic Problem details: -has known CAD s/p 5-vessel CABG -on statin, long acting nitrate Qualifiers: Associated angina: angina presence unspecified Coronary Disease- Associated Artery/Lesion type: unspecified vessel or lesion type [place] vs. 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 -A1c at goal-6.4 -accucheks, ISS, hypoglycemia precautions Qualifiers: Chronic kidney disease stage: stage 3 (moderate) Diabetes mellitus complication detail: with chronic kidney disease Diabetes mellitus complication status: with kidney complications Diabetes mellitus long term care pharmacist insulin use: with care home use Qualified Code(s): E11.22 - Type 2 diabetes mellitus with diabetic chronic kidney disease; N18.3 - Chronic kidney disease, stage 3 (moderate); Z79.4 - [facility] (current) use of insulin (8) Acute kidney injury: Status: Acute Problem details: -has NORMAN on CKD stage 3-4; baseline Cr is around 1.8-2.0 -avoid nephrotoxins, renally dose meds -renal US done 08/24 was negative -continue to monitor urine output -was evaluated by Nephrology during last admission; will need close follow up with Dr. Orozco -on low dose ACEi, will need to hold for now given noted increase in Cr today Other Information Additional DC diagnoses/information: -Morbid obesity: BMI-39 kg/m2 -HTN -Hyperlipidemia; on statin -GERD -Chronic normocytic anemia; on iron replacement, received 1 unit PRBCs during last admission. Has had GI workup in 04/2019 with EGD and colonoscopy; gastric ulcers and moderate diverticulosis and removal of sessile polyps respectively. Baseline Hg was previously 12, now seems to be 9-10. Monitor H/H with anticoagulation, improved today (7.7->8.6). 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 fib with RVR. He initially spontaneously converted in the ER but overnight redeveloped A. fib with RVR requiring Cardizem drip. This was weaned off after several hours and patient maintained sinus rhythm particularly with addition of oral amiodarone per cardiology recommendations. Patient had recently been discharged from our facility following a 10-day stay during which time he was treated for acute CHF exacerbation, acute COPD exacerbation, acutely worsening anemia requiring transfusion of 1 unit of PRBCs as well as acute kidney injury. He did have mild acute CHF exacerbation that required some IV diuresis. He was found to have elevated troponins and was started on a heparin drip. Given the aforementioned issues conservative medical management was recommended rather than intervention particularly due to risk of worsening renal function. Once better clinically compensated he was transitioned to oral diuretics. Bumex was chosen due to acute kidney injury. His hemoglobin has stayed stable within the 8-9 range which is slightly lower than his prior baseline but he has not required transfusion of any additional blood products. He does have known moderate to severe aortic stenosis that may require further evaluation with JEREL, he will need to follow-up with cardiology on this. He will require close follow-up with Dr. Orozco for further monitoring of his renal function. I discussed disposition with patient and his family given patient's overall generalized weakness and deconditioning given his to consecutive hospital stays. They have decided on returning home with home health services including physical therapy. They understand that there is a risk of patient not doing well at home and requiring readmission but would like to try this for now. He has been maintained on supplemental oxygen, his baseline is 3 L. He has had noted difficulty with sleep at night likely due to sleeping during most of the day. Discharge Summary: -Patient to follow-up with primary care physician within 1 week -Patient to follow-up with Dr. Smalls in 6 weeks -Patient to follow-up with Dr. Orozco as soon as next available appointment Physical Exam Const: COMMON NORMALS: no apparent distress and oriented x3 GENERAL APPEARANCE: cooperative and comfortable NUTRITIONAL APPEARANCE: obese morbidly obese ORIENTATION/CONSCIOUSNESS: Yes awake HENMT: COMMON NORMALS: normocephalic, head/scalp atraumatic and moist oral mucous membranes HEAD & SCALP: normocephalic and atraumatic GENERAL EAR: hearing grossly impaired Eye: COMMON NORMALS: PERRL, EOMs intact bilaterally and conjunctivae normal CONJUNCTIVA: Yes conjunctivae normal PUPIL: Yes PERRL Neck/C-Spine: COMMON NORMALS: full ROM GENERAL: Yes normal visual inspection and Yes trachea midline Resp: COMMON NORMALS: normal respiratory effort, no retractions and no use of accessory muscles EFFORT & INSPECTION: Yes able to speak in complete sentences, Yes symmetric chest movement and No tachypneic AUSCULTATION: diminished lung sounds OTHER: -on 2 L NC Cardio: COMMON NORMALS: regular rate, regular rhythm, S1 normal heart sound an d S2 normal heart sound RATE: regular rate RHYTHM: regular rhythm HEART SOUNDS: S1 normal, S2 normal and murmur systolic GI: COMMON NORMALS: normal to inspection, nondistended, normoactive bowel sounds, soft to palpation and non-tender INSPECTION: No abdominal distension and Yes central obesity PALPATION: Yes soft Back/Pelvis: COMMON NORMALS: thoracic and lumbar spine normal to inspection Extremity: COMMON NORMALS: normal to inspection, full ROM and no pedal edema GENERAL: Yes edema (trace edema of bilateral LE; MEND[place] hose on) Neuro: COMMON NORMALS: oriented x3, moves all extremities, no focal motor deficits and no sensory deficits noted Psych: COMMON NORMALS: mental status grossly normal, thought process normal, cooperative, affect normal and speech normal SPEECH: Yes normal speech THOUGHT PROCESS: normal thought process Skin: COMMON NORMALS: no rashes or lesions noted, no jaundice, no petechiae and no mottling GENERAL SKIN EXAM: no rashes or lesions noted OTHER: - chronic venous stasis dermatitis Discharge Data Data Completed and Pending: Completed Studies During Hospitalization Category Date Time Status XR chest 1V leo ble [id number] Stat Exams 09/02/19 13:27 Completed CV echo limited 9 3308 Routine Ultrasound 09/04/19 07:00 Completed Labs from last 24 hours 09/07/19 09/07/19 09/06/19 03:24 03:24 20:55 WBC 11.0 H RBC 2.71 L Hgb 8.1 L Hct 26.7 L MCV 98.5 H MCH 29.9 MCHC 30.3 RDW 15.7 H Plt Count 195 MPV 11.4 H Neut % (Auto) 74.4 Lymph % (Auto) 10.3 [place] % (Auto) 10.7 Eos % (Auto) 3.2 Baso % (Auto) 0.4 Neut # (Auto) 8.2 H Lymph # (Auto) 1.1 [place] # (Auto) 1.2 H Eos # (Auto) 0.4 Baso # (Auto) 0.0 Nucleated RBC % (a uto) 0 Nucleated RBCs # 0.0 APTT Sodium 136 Potassium 3.6 Chloride 94 L Carbon Dioxide 29 Anion Gap 16.6 BUN 58 H Creatinine 2.9 H Glucose 152 H POC Glucose 214 Calculated Osmolal ity 284 L Calcium 9.0 09/06/19 09/06/19 09/06/19 16:26 11:15 07:34 WBC RBC Hgb Hct MCV MCH MCHC RDW Plt Count MPV Neut % (Auto) Lymph % (Auto) [place] % (Auto) Eos % (Auto) Baso % (Auto) Neut # (Auto) Lymph # (Auto) [place] # (Auto) Eos # (Auto) Baso # (Auto) Nucleated RBC % (a uto) Nucleated RBCs # APTT 31.0 Sodium Potassium Chloride Carbon Dioxide Anion Gap BUN Creatinine Glucose POC Glucose 155 223 Calculated Osmolal ity Calcium 09/06/19 09/06/19 09/06/19 07:34 07:34 06:18 WBC 12.9 H RBC 2.94 L Hgb 8.7 L Hct 27.7 L MCV 94.2 H MCH 29.6 MCHC 31.4 RDW 15.5 H Plt Count 213 MPV 11.7 H Neut % (Auto) 81.9 Lymph % (Auto) 6.8 [place] % (Auto) 7.8 Eos % (Auto) 2.3 Baso % (Auto) 0.3 Neut # (Auto) 10.6 H Lymph # (Auto) 0.9 [place] # (Auto) 1.0 H Eos # (Auto) 0.3 Baso # (Auto) 0.0 Nucleated RBC % (a uto) 0 Nucleated RBCs # 0.0 APTT Sodium 135 L Potassium 3.7 Chloride 92 L Carbon Dioxide 29 Anion Gap 17.7 BUN 57 H Creatinine 2.5 H Glucose 249 H POC Glucose 304 Calculated Osmolal ity 287 Calcium 9.3 Vitals: Last Vital Signs Temp 98.3 F 09/07/19 04:00 Pulse 75 09/07/19 04:00 Resp 10 L 09/07/19 04:00 BP 168/71 09/07/19 04:00 Pulse Ox 98 09/07/19 04:00 Discharge Plan Discharge Patient Disposition: Home Health Service Condition: Stable Prescriptions: New bumetanide 1 mg Tablet 2 mg PO DAILY 30 Days Qty: 60 RF: 0 ferrous sulfate 325 mg (65 mg iron) Tablet,Delayed Release (Dr/Ec) 325 mg PO BREAKFAST 30 Days Qty: 30 RF: 0 Pacerone 200 mg Tablet 400 mg PO DAILY Qty: 30 RF: 5 potassium chloride 20 mEq tablet extended release 20 meq PO DAILY Qty: 30 RF: 5 Continued ipratropium-albuterol 0.5 mg-3 mg(2.5 mg base)/3 mL Solution For Nebulization 3 ml INHALATION QID RF: 0 isosorbide mononitrate 120 mg Tablet Extended Release 24 Hr 120 mg PO DAILY RF: 0 ferrous sulfate 325 mg (65 mg iron) Tablet 325 mg PO DAILY RF: 0 albuterol sulfate [ProAir HFA] 90 mcg/actuation Hfa Aerosol Inhaler 2 puff INHALATION 6XD PRN (Reason: Shortness Of Breath) RF: 0 Symbicort 80-4.5 mcg/actuation Hfa Aerosol Inhaler 2 puff INHALATION BID RF: 0 Lantus Solostar U-100 Insulin 100 unit/mL (3 mL) Insulin Pen See Rx Instructions .ROUTE .COMPLEX RF: 0 tamsulosin 0.4 mg Capsule 0.8 mg PO DAILY Qty: 60 RF: 0 pantoprazole 40 mg Tablet,Delayed Release (Dr/Ec) 40 mg PO BID Qty: 60 RF: 0 docusate sodium 100 mg Capsule 100 mg PO BID Qty: 60 RF: 0 calcitriol 0.25 mcg Capsule 0.25 mcg PO DAILY Qty: 30 RF: 0 Changed Lipitor 40 mg Tablet 40 mg PO BEDTIME 30 Days Qty: 30 RF: 0 Tylenol Extra Strength 500 mg Tablet 500 mg PO TID PRN (Reason: Pain) Qty: 0 RF: 0 metoprolol tartrate 50 mg tablet 50 mg PO BID 30 Days Qty: 60 RF: 0 Held losartan 50 mg Tablet 25 mg PO DAILY Qty: 30 RF: 0 Hold Instructions: Hold until follow up with primary care physician Discontinued prednisone 5 mg Tablet 5 mg PO DAILY Qty: 3 RF: 0 metolazone 5 mg Tablet 5 mg PO DAILY Qty: 30 RF: 0 furosemide 40 mg Tablet 40 mg PO BID@08,16 Qty: 60 RF: 0 Discharge Orders: Discharge Order (Routine); Ordered 09/07/19 Ordered By: Alexia Tidwell Referrals: [facility] – [place] Care ([facility]) [Outside] Rakesh Orozco MD [Referring] - 7-10 days (Follow up on CKD stage 3) Daniel Smalls MD [Physician] - 6 Weeks (You have an appointment with Dr. Smalls on November 14, at 3:30pm. If you have any questions or concerns please call the office. ) Anton Pak, [Primary Care Provider] - 4-7 days (Post-hospital discharge follow up. ) Linda Santos FNP [Nurse Practitioner] - 7-10 days (You have an appointment with Linda Santos on September 12, at 9:00am. If you have any questions or concerns please call the office. ) Discharge Diet: Cardiac and Diabetic Discharge Activity: Use walker/crutches as instructed Patient Instructions: COPD, Type 2 Diabetes, Iron Supplements (By mouth), Bumetanide (By mouth), Potassium Chloride (By mouth), Amiodarone (By mouth), Congestive Heart Failure, Hypertension, Myocardial Infarction (DC), Heart Failure (DC), Atrial Fibrillation (DC), Anemia (DC), Hyperlipidemia (DC), COPD Stoplight, Post Heart Attack Stoplight Discharge Attestations Time Spent in Discharge Care*: greater than 30 min Specific Discharge Activities: Specific discharge activities: educating patient, educating and/or supporting family/caregiver, discussing with pcp/other providers, discussing with lining caser/social workers/dc planners, documenting/other paperwork and evaluating patient/reviewing data Status at Discharge: Cognitive status at discharge: cognitively intact , Behavioral status at discharge: cooperative , Functional status at discharge: uses cane/walker Overall status at discharge: patient is back to baseline Quality Metrics Clinical Quality Measures During this hospital stay, did patient experience: None Coding Level of Care Code Acute Spinneret Person for g Fwd Exam Comprehensive Diagnoses Non-ST elevation LA (NSTEMI) I21.4 Congestive heart failure I50.33 Heart failure chronicity: acute on chronic Heart failure type: diastolic A-fib I48.91 Atrial fibrillation type: unspecified Aortic stenosis I35.0 Cardiac valve disease etiology: nonrheumatic Coronary artery disease I25.10 Associated angina: angina presence unspecified Coronary Disease-Associated Artery/Lesion type: unspecified vessel or lesion type [place] vs. transplanted heart: [place] heart Hyperlipidemia E78.5 Hyperlipidemia type: unspecified Type 2 diabetes mellitus E11.22; N18.3; Z79.4 Chronic kidney disease stage: stage 3 (moderate) Diabetes mellitus complication detail: with chronic kidney disease Diabetes mellitus complication status: with kidney complications Diabetes mellitus care home insulin use: with long term care pharmacist use Acute kidney injury N17.9
[2019-09-07 06:29] LABS: Glucose Point of Care 162 mg/dL (70-110)
[2019-09-07 08:00] VITALS: BP 134/68; PULSE 79; RESP 12; TEMP 36.5; O2SAT 98
[2019-09-07 08:30] VITALS: BP 134/68
[2019-09-07] MEDS: bumetanide 1 mg Tablet 2 MG PO (08:30)
[2019-09-07] MEDS: losartan 50 mg Tablet 25 MG PO (08:30)
[2019-09-07] MEDS: aspirin 81 mg EC Tablet PO (08:30)
[2019-09-07] MEDS: isosorbide mononitrate ER 60 mg Tablet 120 MG PO (08:30)
[2019-09-07] MEDS: metoprolol tartrate 50 mg Tablet PO (08:31)
[2019-09-07] MEDS: tamsulosin 0.4 mg Capsule 0.8 MG PO (08:31)
[2019-09-07] MEDS: docusate sodium 100 mg Capsule PO (08:31)
[2019-09-07] MEDS: ferrous sulfate EC 325 mg Tablet PO (08:31)
[2019-09-07] MEDS: pantoprazole DR 40 mg Tablet PO (08:31)
[2019-09-07] MEDS: calcitriol 0.25 mcg Capsule PO (08:31)
--- NOTE | 2019-09-07 09:41 | P.PN_ITS ---
Subjective Subjective: Interval history: Continues to be in sinus rhythm. Overall feeling better heart rate is under control. Medications: Reviewed: Yes Medication Review Details: Active Medications Generic Name Dose Route Start Last Admin Trade Name Freq PRN Reason Stop Dose Admin Acetaminophen 650 mg 09/02/19 18:02 09/05/19 09:35 Tylenol PO 650 mg Q6H PRN Administration Mild/Mod Pain Or Temp >/= 101 Albuterol/Ipratrop ium 3 ml 09/02/19 18:07 Duoneb INHALATION Q6H.RESPIRATORY P RN SHORTNESS OF INDU TH Amiodarone HCl 400 mg 09/03/19 19:45 09/06/19 05:08 Cordarone PO 400 mg Q8H SHOLA Administration Aspirin 81 mg 09/03/19 09:00 09/05/19 08:00 Aspirin Ec PO 81 mg DAILY SHOLA Administration Atorvastatin Calci um 40 mg 09/02/19 21:00 09/05/19 21:33 Lipitor PO 40 mg BEDTIME SHOLA Administration Bumetanide 2 mg 09/05/19 12:35 09/05/19 13:53 Bumex PO 2 mg DAILY HSOLA Administration Calcitriol 0.25 mcg 09/03/19 09:00 09/05/19 07:58 Rocaltrol PO 0.25 mcg DAILY SHOLA Administration Dextrose 25 ml 09/02/19 18:07 D50w IVP ONCE PRN hypoglycemia prot ocol Protocol Dextrose 50 ml 09/02/19 18:07 D50w IVP PRN PRN hypoglycemia prot ocol Protocol Docusate Sodium 100 mg 09/03/19 09:00 09/05/19 17:25 Colace PO 100 mg BID SHOLA Administration Ferrous Sulfate 325 mg 09/03/19 08:00 09/05/19 07:59 Ferrous Sulfate PO 325 mg BREAKFAST SHOLA Administration Glucagon 1 mg 09/02/19 18:07 Glucagen IM ONCE PRN Adult Acute Hypog lycemia Prot. Protocol Heparin Sodium (Be ef Lung) 0 unit 09/02/19 17:14 09/06/19 01:35 Heparin IV 2,500 unit PRN PRN Administration Heparin weight-ba se protocol Protocol Heparin Sodium/Sod ium Chloride 25,000 unit in 50 0 mls @ 0 mls/hr 09/02/19 17:15 09/06/19 01:39 Heparin Drip IV 22 unit/kg/hr .Q0M SHOLA 49.9 mls/hr Titration Protocol Per Protocol Dextrose 500 mls @ 100 mls /hr 09/02/19 18:07 D5w IV ONCE PRN Adult Acute Hypog lycemia Prot Protocol Diltiazem HCl 125 mg/ Sodium 125 mls @ 0 mls/h r 09/03/19 00:30 09/03/19 02:30 Chloride IV 0 mg/hr .Q0M SHOLA 0 mls/hr Titration Protocol Per Protocol Insulin Aspart 0 unit 09/02/19 21:00 09/05/19 21:34 Novolog SUBCUT 6 unit WM&BEDTIME SHOLA Administration Protocol Insulin Aspart 15 unit 09/06/19 11:00 Novolog SUBCUT AC SHOLA Insulin Glargine 20 unit 09/06/19 21:00 Lantus SUBCUT BEDTIME SHOLA Isosorbide Mononit rate 120 mg 09/03/19 09:00 09/05/19 08:00 Imdur PO 120 mg DAILY SHOLA Administration Losartan Potassium 25 mg 09/03/19 09:00 09/05/19 07:58 Cozaar PO 25 mg DAILY SHOLA Administration Metoprolol Tartrat e 50 mg 09/03/19 09:00 09/05/19 17:25 Lopressor PO 50 mg BID SHOLA Administration Pantoprazole Sodiu m 40 mg 09/03/19 09:00 09/05/19 07:58 Protonix PO 40 mg DAILY SHOLA Administration Tamsulosin HCl 0.8 mg 09/03/19 09:00 09/05/19 08:01 Flomax PO 0.8 mg DAILY SHOLA Administration Zolpidem Tartrate 5 mg 09/04/19 19:02 09/05/19 21:34 Ambien PO 5 mg BEDTIME PRN Administration INSOMNIA No Known Allergies Allergy (Verified 08/22/19 11:12) Vitals/I&O/Wt Last Vital Signs Temp 97.7 F 09/07/19 08:00 Pulse 79 09/07/19 08:00 Resp 12 09/07/19 08:00 BP 134/68 09/07/19 08:30 Pulse Ox 98 09/07/19 08:00 09/06/19 09/07/19 09/07/19 22:59 06:59 14:59 Intake Total 220 / 580 100 / 680 480 / 480 Output Total 350 / 750 350 / 1100 375 / 375 Balance -130 / -170 -250 / -420 105 / 105 Weight last 48 hrs Weight 268 lb 6.4 oz Weight 268 lb 1.6 oz Physical Exam Narrative: EXAM NARRATIVE: GENERAL: Patient is alert, awake and oriented x3. NECK: No jugular vein distension. HEENT: No cyanosis. No icterus. No pallor. HEART: Regular S1 and S2. 2/6 sys murmur, rub or gallop. LUNGS: Clear to auscultate bilaterally. ABDOMEN: Soft, nontender and nondistended. Positive bowel sounds. No guarding, rebound or tenderness. CENTRAL NERVOUS SYSTEM: Grossly nonfocal. EXTREMITIES: Lower extremities with trace edema bilaterally. Data : 09/07/19 03:24 09/07/19 03:24 A&P Assessment and plan (1) Non-ST elevation [place] (NSTEMI): Patient remained stable. Denies any chest pain. He is high risk for intervention due to renal failure , bleeding and anemia. We will continue to manage him conservatively. Status: Acute Code(s): I21.4 - Non-ST elevation (NSTEMI) myocardial infarction (2) Atherosclerotic heart disease of [place] coronary artery with other forms of angina pectoris: Continue to treat him medically since patient has patent prior all 3 grafts nearly 1 year ago however he has chronically occluded [place] vessels. Due to worsening of creatinine and renal function will continue to treat him medically since he is stable denies any chest pain. Status: Acute Code(s): I25.118 - Atherosclerotic heart disease of [place] coronary artery with other forms of angina pectoris (3) Congestive heart failure with left ventricular systolic dysfunction: Well compensated . Continue by mouth diuretics with Bumex Status: Acute Code(s): I50.20 - Unspecified systolic (congestive) heart failure (4) Acute kidney injury superimposed on chronic kidney disease: Slightly improved. Continue to follow up with nephrology Status: Acute Code(s): N17.9 - Acute kidney failure, unspecified; N18.9 - Chronic kidney disease, unspecified (5) Intermittent atrial fibrillation: Patient is on amiodarone. We will reduce to 400 mg once a day. He's not on anticoagulation due to persistent chronic anemia and GI bleed. Status: Acute Code(s): I48.0 - Paroxysmal atrial fibrillation (6) Chronic disease anemia: As per medicine. Will keep hemoglobin around 10 Status: Acute Code(s): D63.8 - Anemia in other chronic diseases classified elsewhere (7) Aortic valve stenosis, acquired: Moderate aortic stenosis. We will continue to monitor him closely for possible TAVR in the future Status: Acute Code(s): I35.0 - Nonrheumatic aortic (valve) stenosis Additional A&P Information Her problems are leukocytosis Mild hypokalemia Type 2 diabetes Based on the patient clinical progress and the results of the above, further recommendations will be made. Thank you for the opportunity to eval this patient make these recommendations. Attestations Medical Necessity Statement*: From a cardiac perspective patient can be discharged home today. Follow up with cardiology in 7-10 days but generally controlled and cardiology clinic. Follow with Dr. 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
[2019-09-07 09:54] VITALS: PULSE 88; O2SAT 95
--- NOTE | 2019-09-07 10:15 | PC.SOCIAL ---
IMM Updated Page 2 of IMM updated and given to patient. Initialed, dated, and timed and placed back in chart.
--- NOTE | 2019-09-07 10:19 | PC.CHAP ---
Pastoral Care Encounter/Spiritual Assessment Type of Contact [] Declined brake specialist visit [] Patient/Family/Request visit [] Outpatient visit [] Follow-up visit [] Physician referral [] Code/Alert [x] Routine visit [] Staff referral [] Actively dying [x] Patient sleeping [] Family support [] [] Out of room [] Palliative care [] [] Receiving care in room [] Pre-surgical visit [] Trauma [] Long length of stay [] ICU visit [] Other: Relational/Emotional Strength [] Patient feels connected with others/family/visitors/staff [] Distress [] Loneliness/isolation [] Abandonment Spirituality of Patient [] Person of [place] [] Attends [employer]ist of their [place] [] Believes in Prayer [] Reads Bible or Mandaeism materials [] There are Spiritual issues to be addressed Principal Network Engineer Interventions [] Prayer [] Active listening [] Non-anxious presence [] Spiritual/emotional support [] Crisis/trauma care [] Spiritual counseling [] Bereavement support [] Provided bereavement packet [] Provided Bible/devotional materials [] Provided toy/stuffed animal, coloring book to patient or family member [] Provided Communion [] Anointing/[place] [] Salvation [x] Completed spiritual assessment [] Other: Impact on Illness or Injury [] Angry [] Fearful [] Anxious [] Often cries [] Exhaustion [] Unable to work [] Unable to attend pentecostal [] Unable to walk/stand [] Unable to read [] Unable to drive [] Unable to eat/drink [] Unable to sleep [] Unable to be with family [] Patient intubated [] Other: Summary Patient resting well Time spent with patient
[2019-09-07 12:23] LABS: Glucose Point of Care 203 mg/dL (70-110)
[2019-09-07 12:28] VITALS: BP 134/68; PULSE 88; O2SAT 95
== END 2019-09-07 14:30 | disposition home health service (06) | DRG 280 ==
LOC: ER 16:39 → CSU 16:47
PROVIDERS: Internal Medicine Cardiovascular Disease; Admitting Provider Family Medicine; Emergency Provider Emergency Medicine; Family Provider Emergency Medicine Emergency Medical Services; PCP Emergency Medicine Emergency Medical Services; Visit Provider Family Medicine
DX: I21.4 Non-ST elevation (NSTEMI) myocardial infarction (principal); I50.33 Acute on chronic diastolic (congestive) heart failure; I13.0 Hypertensive heart and chronic kidney disease with heart failure and stage 1 through stage 4 chronic kidney disease, or unspecified chronic kidney disease; N17.9 Acute kidney failure, unspecified; D63.1 Anemia in chronic kidney disease; E66.01 Morbid (severe) obesity due to excess calories; K21.9 Gastro-esophageal reflux disease without esophagitis; G47.33 Obstructive sleep apnea (adult) (pediatric); E11.22 Type 2 diabetes mellitus with diabetic chronic kidney disease; N18.3 Chronic kidney disease, stage 3 (moderate); E11.21 Type 2 diabetes mellitus with diabetic nephropathy; E11.42 Type 2 diabetes mellitus with diabetic polyneuropathy; I48.91 Unspecified atrial fibrillation; I35.0 Nonrheumatic aortic (valve) stenosis; I25.10 Atherosclerotic heart disease of native coronary artery without angina pectoris; E87.6 Hypokalemia; I25.118 Atherosclerotic heart disease of native coronary artery with other forms of angina pectoris; H91.90 Unspecified hearing loss, unspecified ear; E78.5 Hyperlipidemia, unspecified; Z66 Do not resuscitate; Z68.39 Body mass index [BMI] 39.0-39.9, adult; Z99.81 Dependence on supplemental oxygen; Z87.891 Personal history of nicotine dependence; Z79.82 Long term (current) use of aspirin; Z79.51 Long term (current) use of inhaled steroids; Z79.4 Long term (current) use of insulin
CPT/HCPCS: 12345; 36415; 36416; 71045; 80048; 80053; 80061; 82962; 83036; 83735; 83880; 84100; 84484; 85014; 85018; 85025; 85730; 93005; 93308; 96372; 96375; 97110; 97161; 97167; 97530; 99283; J1644; J1815; J1940; J3490; J7040